=== PATIENT | female | born 2000 | race Caucasian/White ===

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

== ENCOUNTER 2023-05-07 12:57 | Emergency (ER) | payer BC, OTHER, SELFPAY ==
[2023-05-07 13:15] VITALS: BP 110/72; PULSE 74; RESP 16; TEMP 36.4; O2SAT 100
--- NOTE | 2023-05-07 13:55 | ED.SKABFB ---
HPI - Skin/Abscess/Foreign Bdy General Chief complaint: Skin/Abscess/Foreign Body Stated complaint: Rash on Feet Time Seen by Provider: 05/07/23 13:55 Source: patient, RN notes reviewed and old records reviewed Mode of arrival: ambulatory Limitations: no limitations History of Present Illness HPI narrative: 22-year-old female presents to the [facility] with complaints of a rash to the bottom of bilateral feet for the last 2 weeks. Has been using a day jock itch cream patient states that she started using this jock itch cream in the blisters that were all over her feet have disappeared. Mild erythema without increased warmth, peeling of the skin noted to the plantar aspect of bilateral feet. History of hydradenitis Related Data Allergies Allergy/AdvReac Type Severity Reaction Status Date / Time No Known Allergies Allergy Unknown Unverified 05/07/23 13:18 Review of Systems Review of Systems: All systems reviewed & are unremarkable except as noted in HPI and below Constitutional: Constitutional: Reports no additional constitutional complaints Eyes: Eyes: Reports no additional eye complaints ENT: Reports system reviewed and no additional complaints, except as documented Cardiovascular: Cardiovascular: Reports no additional cardiovascular complaints, Denies chest pain and Denies dyspnea Respiratory: Respiratory: Reports no additional respiratory complaints, Denies chest congestion, Denies cough and Denies dyspnea Gastrointestinal: Gastrointestinal: Reports no additional gastrointestinal complaints, Denies abdominal pain, Denies nausea and Denies vomiting Musculoskeletal: Musculoskeletal: Reports no additional musculoskeletal complaints Integumentary/Breasts: Skin/Breast: Reports as per HPI Neurologic: Reports system reviewed and no additional complaints, except as documented Psychiatric: Psychiatric: Reports no additional psychiatric complaints Allergic/Immunologic: Allergic/Immunologic: Reports no additional allergic/immunologic complaints [facility] Past Medical History Medical History Cholecystectomy planned Family History Family History Mother Diabetes mellitus Hypertension Heart problem Sibling Depression Social History Social History Smoking status: Current every day smoker Lack of Transportation: No Lack of Food: Never True Current Housing: I Have Housing Concerned About Future Housing: No Difficulty Paying Gas/Electric Bills: No Difficulty Paying for Meds: No Currently Unemployed: No Education: High School Diploma/GED Comments At the time of my signature, I reviewed and agree with the nursing past medical, surgical, social, and family history. There is no relevant family history pertinent to the patient complaint. Exam Const: General: cooperative, healthy appearing, comfortable, no acute distress, well developed, alert and well nourished Nutritional Appearance: well nourished Orientation/consciousness: patient oriented x3 Limitations: no limitations HENMT: Head: normal to inspection Ears: hearing grossly normal bilaterally and external ears normal Face/Nose/Sinus: Normal external nose present, Normal nares present, Normal nasal mucous membranes and turbinates present, normal facial exam and face symmetric Face and sinus: normal facial exam and face symmetric Eyes: General: appearance normal, both eyes and all related structures Alignment and Position: alignment normal Periorbital: periorbital findings normal Pupils: Equal, round and reactive pupils present EOM: EOMs intact bilaterally Neck: Neck: normal visual inspection, full ROM, no lymphadenopathy and no meningeal signs Chest: Chest palpation & inspection: normal inspection of the chest Resp: Effort & Inspection: normal respiratory effort and able to speak i
== END 2023-05-07 14:09 | disposition home or self-care (01) ==
PROVIDERS: Emergency Provider Nurse Practitioner; PCP Nurse Practitioner
DX: B35.3 Tinea pedis (principal); F17.200 Nicotine dependence, unspecified, uncomplicated
CPT/HCPCS: 99213; G0463

== ENCOUNTER 2023-07-12 21:50 | Emergency (ER) | payer BC, OTHER, SELFPAY ==
--- NOTE | ~2023-07-12 | CT_ITS ---
EXAMINATION: CT abdomen pelvis w con DATE: 07/13/2023 02:27 INDICATION: Right abdominal pain. Right flank pain. TECHNIQUE: Computed tomography (CT) of the abdomen and pelvis was performed with 100 mL Omnipaque 350 intravenous contrast. Automated exposure control and iterative reconstruction technique were employe d. The dose-length product was 684.39 mGy-cm. COMPARISON: None. FINDINGS: The visualized portions of the lung bases demonstrate mild atelectasis. No pleural effusion . The heart size is normal. No pericardial effusion. The liver is normal. The gallbladder is absent. The spleen, pancreas, adrenal glands, and left kidney are normal. There is a 10 mm cyst in right kidn ey. There are no dilated loops of bowel. The appendix is normal. There are no pathologically enlarged lymph nodes. There is no free intraperitoneal fluid. There is mild lumbar spondylosis. IMPRESSION: 1. No etiology for the patient's symptoms. Reviewed, dictated and finalized at location E. ICIAN CODER
[2023-07-12 21:56] VITALS: BP 122/82; PULSE 52; RESP 14; TEMP 36.6; O2SAT 100
[2023-07-13 00:17] LABS: Basophils Percent Auto 0.2 % (0.2-1.2); Eosinophils Absolute Auto 0.1 K/mm3 (0-0.3); Eosinophils Percent Auto 0.7 % (0-4.4); Hematocrit 39.5 % (37.0-47.0); Hemoglobin 12.8 g/dL (12.0-15.0); Immature Granulocyte Absolute 0.02 K/mm3 (0.00-0.031); Immature Granulocyte Percent A 0.2 % (0-0.5); Lymphocytes Absolute Auto 1.93 K/mm3 (0.9-3.2); Lymphocytes Percent Auto 23.3 % (18.3-44.2); Mean Corpuscular HGB Conc 32.4 g/dl (32-36); Mean Corpuscular Hemoglobin 29.2 pg (26-34); Mean Platelet Volume 11.7 fl (7.4-10.4); Monocytes Absolute Auto 0.5 K/mm3 (0.1-0.6); Monocytes Percent Auto 6.4 % (2.6-8.5); Neutrophils Absolute Auto 5.7 K/mm3 (1.3-6.7); Neutrophils Percent Auto 69.2 % (45.5-73.1); Platelet Count Result 171 k/mm3 (150-375); Red Blood Count 4.39 M/mm3 (4.2-5.4); Red Cell Distribution Width 12.9 % (11.5-14.5); White Blood Count 8.3 K/mm3 (4.5-10.0)
[2023-07-13 00:20] LABS: Appearance Urine Cloudy (Clear); Bilirubin Urine Negative (Negative); Blood Urine Negative (Negative); Color Urine Dark Yellow (Yellow); Glucose Urine UA Negative (Negative); Ketones Urine Trace mg/dL (Negative); Leukocyte Esterase Ur Negative LEU/UL (Negative); Nitrate Urine Negative (Negative); Protein Urine Trace mg/dL (Negative); pH Urine 5.5 (5.0-9.0)
[2023-07-13 00:21] LABS: Specific Grav Ur 1.036 (1.001-1.035)
[2023-07-13 00:28] LABS: Add Urine Microscopic? NO
[2023-07-13 00:29] LABS: Alanine Aminotransferase 18 U/L (6-35); Albumin Level 4.4 g/dL (3.5-5.1); Alkaline Phosphatase 55 U/L (38-126); Anion Gap 8 mmol/L (8-16); Aspartate Amino Transferase 23 U/L (14-36); Bilirubin,Total 0.9 mg/dL (0.2-1.3); Blood Urea Nitrogen 11 mg/dL (7-17); Calcium 9.2 mg/dL (8.4-10.2); Carbon Dioxide 22 mmol/L (22-30); Chloride 111 mmol/L (98-107); Estimated CRCL calculation 119 ml/min; Estimated Glomerular Filt Rate > 60; Glucose 96 mg/dL (65-110); Lipase 51 U/L (23-300); Potassium 3.7 mmol/L (3.4-5.0); Sodium 141 mmol/L (137-145)
[2023-07-13 01:07] VITALS: BP 128/82; PULSE 48; RESP 13; O2SAT 100
--- NOTE | 2023-07-13 02:03 | ED.ABDPAIN ---
HPI - Abdominal Pain General Chief Complaint: Abdominal Pain Stated Complaint: Abd pain Time Seen by Provider: 07/13/23 01:33 Source: patient Mode of arrival: ambulatory Limitations: no limitations History of Present Illness HPI narrative: This is a 23 year old female that presents to the ER for abdominal pain ongoing over the last 2 days. Reports pain in the right lower abdomen, radiating to the right flank. Reports nausea. Denies fever, vomiting, dysuria, or hematuria. Related Data Allergies Allergy/AdvReac Type Severity Reaction Status Date / Time No Known Allergies Allergy Unknown Verified 07/13/23 01:09 Review of Systems Review of Systems: CONSTITUTIONAL: Denies fever GASTROINTESTINAL: Reports abdominal pain, nausea. Denies vomiting, or diarrhea. GENITOURINARY: Denies dysuria or hematuria. All systems reviewed & are unremarkable except as noted in HPI and below PMFSH Surgical History Surgical History (Updated 07/13/23 @ 02:09 by Sary Lorenz PA-C) History of cholecystectomy Family History Family History Mother Diabetes mellitus Hypertension Heart problem Sibling Depression Social History Social History Smoking status: Current every day smoker Lack of Transportation: No Lack of Food: Never True Current Housing: I Have Housing Concerned About Future Housing: No Difficulty Paying Gas/Electric Bills: No Difficulty Paying for Meds: No Currently Unemployed: No Education: High School Diploma/GED Exam Narrative: GENERAL: Well-appearing, well-nourished, and in no acute distress. HEAD: Normocephalic, atraumatic. EYES: EOMI. CHEST: Clear to auscultation. No respiratory distress. No wheezes rales or rhonchi HEART: Regular rate and rhythm. No murmur heard. Normal peripheral pulses. ABDOMEN: Soft, nondistended, normal active bowel sounds. Tender to palpation in the right lower quadrant, without guarding. No CVA tenderness EXTREMITIES: Normal range of motion. No edema. SKIN: Warm, dry, no rash. NEURO: No focal deficits. Alert and oriented x3. PSYCH: Normal mood and affect Course Course Emergency Course: Patient updated on her workup and agrees with plan of care Vital Signs Vital signs: Vital Signs Temperature 97.9 F 07/12/23 21:56 Pulse Rate 52 L 07/12/23 21:56 Respiratory Rate 14 07/12/23 21:56 Blood Pressure 122/82 07/12/23 21:56 Pulse Oximetry 100 07/12/23 21:56 Oxygen Delivery Room Air 07/12/23 21:56 Temperature 97.9 F 07/12/23 21:56 Pulse Rate 48 L 07/13/23 01:07 Respiratory Rate 13 07/13/23 01:07 Blood Pressure 128/82 07/13/23 01:07 Pulse Oximetry 100 07/13/23 01:07 Oxygen Delivery Room Air 07/12/23 21:56 MDM - Abdominal Pain MDM Narrative Medical decision making narrative: Patient presents to the emergency department for right-sided abdominal pain. Ongoing over the last couple of days. She is afebrile and nontoxic appearing. Her vitals are stable. CBC without leukocytosis. Metabolic panel and lipase without acute findings. Urine with some evidence of dehydration. Patient hydrated with a L of IV fluids. CT abdomen and pelvis is without acute findings. Patient was updated on her workup. Instructed to have further follow-up with primary provider. She was given warnings to return to the ER Differential Diagnosis Differential diagnosis: Likely abdominal pain, acute appendicitis and calculus of kidney Lab Data Attestation: I reviewed the patient's lab results. 07/12/23 23:52 07/12/23 23:52 Labs: Lab Results 07/12/23 Range/Units 23:52 WBC 8.3 (4.5-10.0) K/mm3 RBC 4.39 (4.2-5.4) M/mm3 Hgb 12.8 (12.0-15.0) g/dL Hct 39.5 (37.0-47.0) % MCV 90.0 (80-100) fl MCH 29.2 (26-34) pg MCHC 32.4 (32-36) g/dl RDW 12.9 (11.5-14.5) % Plt Count 171 (150-37
[2023-07-13] MEDS: MORPHINE SULFATE (*CRX) 4 MG/ML INJ IV PUSH (02:04)
[2023-07-13] MEDS: ONDANSETRON INJ 4 MG/2 ML VIAL IV PUSH (02:05)
[2023-07-13] MEDS: SODIUM CHLORIDE 0.9% IV 1,000 ML 999 ML IV CONT (02:05)
[2023-07-13 04:04] VITALS: BP 124/80; PULSE 54; RESP 14; O2SAT 100
== END 2023-07-13 04:05 | disposition home or self-care (01) ==
PROVIDERS: Emergency Medicine; Emergency Provider Physician Assistant; PCP Nurse Practitioner
DX: R10.31 Right lower quadrant pain (principal); E86.0 Dehydration; Z90.49 Acquired absence of other specified parts of digestive tract; F17.210 Nicotine dependence, cigarettes, uncomplicated
CPT/HCPCS: 36415; 74177; 80053; 81003; 81025; 83690; 85025; 96361; 96374; 96375; 99284; J2270; J2405; J7030; Q9967

== ENCOUNTER 2023-10-19 15:31 | Outpatient (CLI) | payer BC, OTHER, SELFPAY ==
[2023-10-19 17:09] LABS: Beta HCG Quantitative < 2.39 mIU/ML
== END 2023-10-19 15:32 | disposition home or self-care (01) ==
LOC: ANHLAB 15:33
PROVIDERS: PCP Nurse Practitioner; Visit Provider Student in an Organized Health Care Education/Training Program
DX: Z30.9 Encounter for contraceptive management, unspecified (principal)
CPT/HCPCS: 36415; 84702

== ENCOUNTER 2023-11-16 20:21 | Emergency (ER) | payer BC, OTHER, SELFPAY ==
--- NOTE | ~2023-11-16 | XR_ITS ---
EXAMINATION: XR lumbar spine 2-3V DATE: 11/16/2023 21:13 INDICATION: Low back pain. TECHNIQUE: 3 views of lumbar spine were obtained. COMPARISON: CT abdomen and pelvis 07/13/2023 FINDINGS: Bone alignment is normal. Vertebral body heights and intervertebral disc heights are normal . The facet joints are unremarkable. IMPRESSION: 1. Normal lumbar spine. Reviewed, dictated and finalized at location E. IMPRESSION: 1. Normal lumbar spine.
[2023-11-16 20:21] VITALS: BP 124/66; PULSE 93; RESP 18; TEMP 36.8; O2SAT 98
--- NOTE | 2023-11-16 20:39 | ED.BACK ---
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 She reports she has been trying to get in to see her primary care physician but has been unable to get an appointment to to them being Very busy. She denies dysuria, urgency, frequency, denies radicular pain, denies paresthesias. She does not recall a specific injury that triggered it, does not recall any previous significant back injuries. Related Data Home Medications Medication Instructions Recorded Confirmed etonogestrel 68 mg subdermal 1 implant subdermal ONCE 10/20/23 11/16/23 implant (Nexplanon) Allergies Allergy/AdvReac Type Severity Reaction Status Date / Time No Known Allergies Allergy Unknown Verified 10/20/23 14:54 Review of Systems Review of Systems: All systems reviewed & are unremarkable except as noted in HPI and below PMFSH Past Medical History Medical History Encounter for surveillance of other contraceptives Surgical History Surgical History History of ankle surgery History of cholecystectomy Family History Family History Mother Diabetes mellitus Hypertension Heart problem Sibling Depression Social History Social History Smoking status: Current every day smoker Tobacco type: e-cigarettes/vaping Alcohol intake: never Substance use: current Substance use type: marijuana Do You Feel Safe in your Home?: Yes Lack of Transportation: No Lack of Food: Never True Current Housing: I Have Housing Concerned About Future Housing: No Difficulty Paying Gas/Electric Bills: No Difficulty Paying for Meds: No Currently Unemployed: No Education: High School Diploma/GED Living arrangements: with roommate(s) Occupation/Education: occupation Gender identity (if verbalized by the patient): Female Sexual Orientation (if Verbalized by the Patient): Straight or Heterosexual Exam Const: General: healthy appearing, no acute distress and alert Nutritional Appearance: well nourished Orientation/consciousness: patient oriented x3 HENMT: Head: normal to inspection Face and sinus: normal facial exam Eyes: Pupils: Equal, round and reactive pupils present EOM: EOMs intact bilaterally Resp: Effort & Inspection: normal respiratory effort Cardio: Rate: regular rate Rhythm: regular rhythm Back/Spine/Pelvis: Back: no CVA tenderness Other: Patient has diffuse tenderness on palpation of the lumbar area including the paravertebral musculature without specific point tenderness of any specific spinous process. There is no deformity, step-off, or crepitance. Range of motion is preserved. No radicular pain, negative straight leg raising, distal neurovascular intact Skin: General skin exam: normal color Neuro: General: moves all extremities, no focal motor deficits and CN's II-XI intact bilaterally Extrem: General: normal to inspection Psych: Mental Status: mental status grossly normal Affect: normal affect Attitude: cooperative Course Course Emergency Course: differential diagnosis includes but is not limited to musculoskeletal low back pain, muscle spasm, overuse syndrome, scoliosis, UTI, , will get UA, urine test, and if negative will get LS-spine x-rays UA is unremarkable, urine test is negative x-rays are unremarkable, no scoliosis,
--- NOTE | 2023-11-16 20:57 | PC.NURSE ---
PT TO BR INDEPENDENTLY, URINE TO LAB.
[2023-11-16 21:02] LABS: Appearance Urine Clear (Clear); Bilirubin Urine Negative (Negative); Blood Urine Negative (Negative); Color Urine Yellow (Yellow); Glucose Urine UA Negative (Negative); Ketones Urine Negative (Negative); Leukocyte Esterase Ur Negative LEU/UL (Negative); Nitrate Urine Negative (Negative); Protein Urine Negative (Negative); Specific Grav Ur >= 1.030 (1.010-1.020); Urobilinogen Urine 0.2 mg/dL (0.2-1.0)
[2023-11-16 21:05] LABS: Add Urine Microscopic? NO; Urine Pregnancy Test Negative
[2023-11-16 21:06] LABS: Pregnancy On Board Control Positive
[2023-11-16 22:05] VITALS: BP 107/57; PULSE 60; RESP 16; TEMP 37.1; O2SAT 97
== END 2023-11-16 22:11 | disposition home or self-care (01) ==
PROVIDERS: Emergency Provider Emergency Medicine; PCP Nurse Practitioner
DX: S39.012A Strain of muscle, fascia and tendon of lower back, initial encounter (principal); F17.290 Nicotine dependence, other tobacco product, uncomplicated; X50.9XXA Other and unspecified overexertion or strenuous movements or postures, initial encounter; Y99.0 Civilian activity done for income or pay
CPT/HCPCS: 72100; 81003; 81025; 99283

== ENCOUNTER 2023-11-25 20:38 | Emergency (ER) | payer BC, OTHER, SELFPAY ==
[2023-11-25 20:42] VITALS: BP 118/96; PULSE 96; RESP 18; TEMP 36.4; O2SAT 98
--- NOTE | 2023-11-25 21:58 | ED.BACK ---
HPI - Back Pain/Injury General Chief Complaint: Back Pain/Injury Stated Complaint: back pain Time Seen by Provider: 11/25/23 21:39 Source: patient Mode of arrival: ambulatory Limitations: no limitations History of Present Illness HPI Narrative: 23 YEARS OLD WHITE FEMALE DROVE HERSELF TO THE EMERGENCY ROOM COMPLAINING OF PAIN ALL OVER HER BACK OVER 2 MONTHS AGO. 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 AND PAIN BEEN GOING FOR ALMOST 2 MONTHS, WAS SEEN BY HER FAMILY PHYSICIAN YESTERDAY SCHEDULED FOR PHYSICAL THERAPY December. PATIENT WORKING 12 HOUR SHIFT TONIGHT, 2 HOURS LATER COULD NOT CONTINUE TO WORK BECAUSE THE PAIN IS GETTING WORSE. PATIENT WOULD LIKE TO HAVE A NOTE TO BE OF WORK TODAY SHE DENIED ANY FOCAL NEURO DEFICIT. PAIN WORSE WITH MOVEMENT, BETTER AT REST. PATIENT BEEN ON FLEXERIL AND NAPROXEN IN THE PAST Related Data Home Medications Medication Instructions Recorded Confirmed etonogestrel 68 mg subdermal 1 implant subdermal ONCE 10/20/23 11/24/23 implant (Nexplanon) Allergies Allergy/AdvReac Type Severity Reaction Status Date / Time No Known Allergies Allergy Unknown Verified 11/24/23 10:02 Review of Systems Review of Systems: All systems reviewed & are unremarkable except as noted in HPI and below PMFSH Past Medical History Medical History Encounter for surveillance of other contraceptives Surgical History Surgical History History of ankle surgery History of cholecystectomy Family History Family History Mother Diabetes mellitus Hypertension Heart problem Sibling Depression Social History Social History Smoking status: Current every day smoker Tobacco type: e-cigarettes/vaping Alcohol intake: never Substance use: current Substance use type: marijuana Do You Feel Safe in your Home?: Yes Lack of Transportation: No Lack of Food: Never True Current Housing: I Have Housing Concerned About Future Housing: No Difficulty Paying Gas/Electric Bills: No Difficulty Paying for Meds: No Currently Unemployed: No Education: High School Diploma/GED Living arrangements: with roommate(s) Occupation/Education: occupation Gender identity (if verbalized by the patient): Female Sexual Orientation (if Verbalized by the Patient): Straight or Heterosexual Exam Narrative: GENERAL APPEARANCE: WELL-DEVELOPED, WELL-NOURISHED SKIN: NORMAL COLOR HEAD: NORMOCEPHALIC, NONTRAUMATIC EYES: CLEAR CONJUNCTIVA ENT: OROPHARYNX NORMAL, EARS NORMAL, NOSE NORMAL NECK: SUPPLE, NONTENDER CHEST AND RESPIRATORY: AIRWAY PATENT, NO RESPIRATORY DISTRESS, NO ACCESSORY MUSCLE USE HEART: REGULAR RATE/RHYTHM ABDOMEN: SOFT, NONTENDER, NO ORGANOMEGALY, QUIET BOWEL SOUNDS VASCULAR: NORMAL PERIPHERAL PULSES, NORMAL CAPILLARY REFILL. 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
[2023-11-25 22:21] VITALS: BP 103/62; PULSE 90; RESP 18; O2SAT 99
== END 2023-11-25 22:22 | disposition home or self-care (01) ==
LOC: ANHED 22:16
PROVIDERS: Emergency Provider Emergency Medicine; PCP Nurse Practitioner
DX: M54.9 Dorsalgia, unspecified (principal); F17.290 Nicotine dependence, other tobacco product, uncomplicated; Z90.49 Acquired absence of other specified parts of digestive tract
CPT/HCPCS: 99283

== ENCOUNTER 2024-01-03 15:04 | Outpatient (CLI) | payer OTHER, SELFPAY ==
[2024-01-03 18:56] LABS: Basophils Percent Auto 0.5 % (0.2-1.2); Eosinophils Absolute Auto 0.2 K/mm3 (0-0.3); Eosinophils Percent Auto 2.4 % (0-4.4); Hematocrit 40.5 % (37.0-47.0); Hemoglobin 13.7 g/dL (12.0-15.0); Immature Granulocyte Absolute 0.01 K/mm3 (0.00-0.031); Immature Granulocyte Percent A 0.1 % (0-0.5); Lymphocytes Absolute Auto 2.54 K/mm3 (0.9-3.2); Lymphocytes Percent Auto 30.7 % (18.3-44.2); Mean Corpuscular HGB Conc 33.8 g/dl (32-36); Mean Corpuscular Volume 88.6 fl (80-100); Mean Platelet Volume 11.5 fl (7.4-10.4); Monocytes Absolute Auto 0.5 K/mm3 (0.1-0.6); Monocytes Percent Auto 6.2 % (2.6-8.5); Neutrophils Percent Auto 60.1 % (45.5-73.1); Platelet Count Result 219 k/mm3 (150-375); Red Blood Count 4.57 M/mm3 (4.2-5.4); White Blood Count 8.3 K/mm3 (4.5-10.0)
[2024-01-03 19:29] LABS: Alanine Aminotransferase 20 U/L (6-35); Albumin Level 4.7 g/dL (3.5-5.1); Alkaline Phosphatase 49 U/L (38-126); Anion Gap 9 mmol/L (4-12); Aspartate Amino Transferase 28 U/L (14-36); Bilirubin,Total 1.1 mg/dL (0.2-1.3); Blood Urea Nitrogen 14 mg/dL (7-17); Calcium 9.4 mg/dL (8.4-10.2); Carbon Dioxide 26 mmol/L (22-30); Chloride 105 mmol/L (98-107); Estimated Glomerular Filt Rate > 60; Glucose 89 mg/dL (65-110); Potassium 4.1 mmol/L (3.4-5.0); Sodium 140 mmol/L (137-145)
== END 2024-01-03 15:05 | disposition home or self-care (01) ==
LOC: ANHGOSHLAB 15:06
PROVIDERS: PCP Nurse Practitioner; Visit Provider Clinical Nurse Specialist
DX: R42 Dizziness and giddiness (principal)
CPT/HCPCS: 36415; 80053; 82728; 84443; 85025

== ENCOUNTER 2024-01-09 14:03 | Emergency (ER) | payer OTHER, SELFPAY ==
[2024-01-09 14:04] VITALS: BP 113/58; PULSE 62; RESP 16; TEMP 36.6; O2SAT 100
[2024-01-09 16:52] LABS: Influenza A QL RT-PCR Negative (Negative); Influenza B QL RT-PCR Negative (Negative); SARS-CoV-2 RNA PCR Negative (Negative)
== END 2024-01-09 14:10 | disposition left against medical advice (07) ==
LOC: ANHED 01-10 03:16
PROVIDERS: Emergency Provider Emergency Medicine; PCP Nurse Practitioner
DX: R11.0 Nausea (principal); R19.7 Diarrhea, unspecified; Z20.822 Contact with and (suspected) exposure to COVID-19
CPT/HCPCS: 87636; 99199

== ENCOUNTER 2024-01-24 09:37 | Emergency (ER) | payer OTHER, SELFPAY ==
[2024-01-24 10:00] VITALS: BP 119/65; PULSE 51; RESP 14; TEMP 36.9; O2SAT 100
--- NOTE | 2024-01-24 11:44 | ED.GENADULT ---
HPI - General Adult General Chief complaint: Headache Stated complaint: N/V, HEADACHE Time Seen by Provider: 01/24/24 11:14 History of Present Illness HPI narrative: 23-year-old female presents emergency department for evaluation for recurrent headache. Patient states that she does have seasonal headaches and does have infrequent migraine headaches. Patient states this headache started as a typical headache but has just persisted longer than usual. Patient denies any recent fevers falls or injuries. Related Data Home Medications Medication Instructions Recorded Confirmed etonogestrel 68 mg subdermal 1 implant subdermal ONCE 10/20/23 01/03/24 implant (Nexplanon) Allergies Allergy/AdvReac Type Severity Reaction Status Date / Time No Known Allergies Allergy Unknown Verified 01/09/24 14:08 Review of Systems Review of Systems: All systems reviewed & are unremarkable except as noted in HPI and below PMFSH Past Medical History Medical History Encounter for surveillance of other contraceptives Surgical History Surgical History History of ankle surgery History of cholecystectomy Family History Family History Mother Diabetes mellitus Hypertension Heart problem Sibling Depression Social History Social History Smoking status: Current every day smoker Tobacco type: e-cigarettes/vaping Alcohol intake: never Substance use: current Substance use type: marijuana Do You Feel Safe in your Home?: Yes Lack of Transportation: No Lack of Food: Never True Current Housing: I Have Housing Concerned About Future Housing: No Difficulty Paying Gas/Electric Bills: No Difficulty Paying for Meds: No Currently Unemployed: No Education: High School Diploma/GED Living arrangements: with roommate(s) Occupation/Education: occupation Gender identity (if verbalized by the patient): Female Sexual Orientation (if Verbalized by the Patient): Straight or Heterosexual Exam Narrative: APPEARANCE: Well appearing, no pain, no distress, well-nourished. HEAD: normocephalic, atraumatic. EYES: PERRLA/EOMI, conjunctivae clear. NOSE: Normal no drainage EARS:TMS clear with good light reflex. THROAT: Pharynx clear, no exudate. NECK: Supple. No adenopathy, no masses. RESPIRATORY: Airway patent, respirations nonlabored. Clear to auscultation bilaterally, no rales, rhonchi, wheezing. CARDIOVASCULAR: Regular rate and rhythm without murmurs rubs or gallops. ABDOMINAL: Soft, nontender, nondistended, normal bowel sounds MUSCULOSKELETAL: Moves all extremities. Strength/ROM intact, No edema, No calf tenderness. NEURO: Alert. Cranial nerves II through XII intact. Good gait. Good coordination SKIN: Warm, dry. Normal Color Course Course Emergency Course: Patient felt improved with treatment and was requesting discharge to home. Vital Signs Vital signs: Vital Signs Temperature 98.5 F 01/24/24 10:00 Pulse Rate 51 L 01/24/24 10:00 Respiratory Rate 14 01/24/24 10:00 Blood Pressure 119/65 01/24/24 10:00 Pulse Oximetry 100 01/24/24 10:00 Oxygen Delivery Room Air 01/24/24 10:00 Temperature 98.5 F 01/24/24 10:00 Pulse Rate 67 01/24/24 13:54 Respiratory Rate 18 01/24/24 13:54 Blood Pressure 102/69 01/24/24 13:54 Pulse Oximetry 100 01/24/24 13:54 Oxygen Delivery Room Air 01/24/24 10:00 Medical Decision Making MDM Narrative Medical decision making narrative: 23-year-old female presented emergency department for evaluation for headache. Patient's headache was resolved with migraine cocktail. Patient was start oriented and was requesting discharge to home. All questions and concerns were addressed. Differential Diagnosis Differential
[2024-01-24] MEDS: SODIUM CHLORIDE 0.9% IV 1,000 ML 999 ML IV CONT (12:03)
[2024-01-24] MEDS: diphenhydrAMINE HCl INJ 50 MG/ML VIAL 25 MG IV PUSH (12:04)
[2024-01-24] MEDS: KETOROLAC 15 MG/ML VIAL (*BKC) IV PUSH (12:04)
[2024-01-24] MEDS: PROCHLORPERAZINE EDISYLATE 10 MG/2 ML VIAL IV PUSH (12:05)
[2024-01-24 13:54] VITALS: BP 102/69; PULSE 67; RESP 18; O2SAT 100
== END 2024-01-24 13:56 | disposition home or self-care (01) ==
PROVIDERS: Emergency Provider Emergency Medicine; PCP Nurse Practitioner
DX: R51.9 Headache, unspecified (principal); F17.290 Nicotine dependence, other tobacco product, uncomplicated; Z90.49 Acquired absence of other specified parts of digestive tract; Z79.3 Long term (current) use of hormonal contraceptives
CPT/HCPCS: 96361; 96374; 96375; 99284; J0780; J1200; J1885; J7030

== ENCOUNTER 2024-02-08 09:31 | Emergency (ER) | payer OTHER, SELFPAY ==
[2024-02-08 09:47] VITALS: BP 100/83; PULSE 78; RESP 17; TEMP 36.1; O2SAT 98
--- NOTE | 2024-02-08 10:10 | ED.SKABFB ---
HPI - Skin/Abscess/Foreign Bdy General Chief complaint: Skin/Abscess/Foreign Body Stated complaint: big toe left foot issue Time Seen by Provider: 02/08/24 10:10 Source: patient, RN notes reviewed and old records reviewed Mode of arrival: ambulatory Limitations: no limitations History of Present Illness HPI narrative: Patient presents with complaints of left great toe pain. Patient reportedly traumatically loss the toenail 3 nights ago. Was playing Frisbee, kicked an object on the ground and felt the nail avulsed. Pulled it off the rest of the way. There is now yellow drainage from the nail bed. Denies other injury and trauma. Denies any fever, chills, sweats. Voices no other concerns or complaints today Related Data Home Medications Medication Instructions Recorded Confirmed etonogestrel 68 mg subdermal 1 implant subdermal ONCE 10/20/23 02/08/24 implant (Nexplanon) Allergies Allergy/AdvReac Type Severity Reaction Status Date / Time No Known Allergies Allergy Unknown Verified 02/08/24 09:57 Review of Systems Review of Systems: All systems reviewed & are unremarkable except as noted in HPI and below Constitutional: Constitutional: Reports no additional constitutional complaints ENT: Reports system reviewed and no additional complaints, except as documented Cardiovascular: Cardiovascular: Reports no additional cardiovascular complaints Respiratory: Respiratory: Reports no additional respiratory complaints Gastrointestinal: Gastrointestinal: Reports no additional gastrointestinal complaints Integumentary/Breasts: Skin/Breast: Reports as per HPI and Reports wounds PMFSH Past Medical History Medical History Encounter for surveillance of other contraceptives Surgical History Surgical History History of ankle surgery History of cholecystectomy Family History Family History Mother Diabetes mellitus Hypertension Heart problem Sibling Depression Social History Social History Smoking status: Current every day smoker Tobacco type: e-cigarettes/vaping Alcohol intake: never Substance use: current Substance use type: marijuana Do You Feel Safe in your Home?: Yes Lack of Transportation: No Lack of Food: Never True Current Housing: I Have Housing Concerned About Future Housing: No Difficulty Paying Gas/Electric Bills: No Difficulty Paying for Meds: No Currently Unemployed: No Education: High School Diploma/GED Living arrangements: with roommate(s) Occupation/Education: occupation Gender identity (if verbalized by the patient): Female Sexual Orientation (if Verbalized by the Patient): Straight or Heterosexual Comments At the time of my signature, I reviewed and agree with the nursing past medical, surgical, social, and family history. There is no relevant family history pertinent to the patient complaint. Exam Const: General: cooperative, no acute distress, alert and awake Orientation/consciousness: oriented to person, oriented to place and oriented to time HENMT: Head: normal to inspection Resp: Effort & Inspection: normal respiratory effort and able to speak in complete sentences Auscultation: clear to auscultation bilaterally, no crackles, no rales, no rhonchi and no wheezes Cardio: Palpation: normal PMI Rate: regular rate Rhythm: regular rhythm Heart sounds: S1 normal heart sound present and S2 normal heart sound present Skin: Nails: other (Left great toenail avulsion, purulent drainage noted at the nail bed) Neuro: General: oriented to person, oriented to place and oriented to time Cranial nerves: Yes CN's II-XII intact bilaterally Psych: Appearance: grossly normal Thought process: Normal thought process present Insight: Good insig
== END 2024-02-08 10:25 | disposition home or self-care (01) ==
PROVIDERS: Emergency Provider Nurse Practitioner Family; PCP Nurse Practitioner
DX: S91.202A Unspecified open wound of left great toe with damage to nail, initial encounter (principal); L08.9 Local infection of the skin and subcutaneous tissue, unspecified; W22.8XXA Striking against or struck by other objects, initial encounter; Y93.74 Activity, frisbee; F17.290 Nicotine dependence, other tobacco product, uncomplicated; F12.90 Cannabis use, unspecified, uncomplicated
CPT/HCPCS: 99213; G0463

== ENCOUNTER 2024-04-29 10:06 | Emergency (ER) | payer OTHER, SELFPAY ==
--- NOTE | ~2024-04-29 | XR_ITS ---
EXAMINATION: XR chest 2V DATE: 04/29/2024 10:41 INDICATION: Chest pain. TECHNIQUE: Frontal and lateral views of the chest were obtained. COMPARISON: CT abdomen pelvis 07/13/2023 FINDINGS: There is no pneumonia, pleural effusion, or pneumothorax. The heart size is normal. IMPRESSION: 1. No acute cardiopulmonary disease. Reviewed, dictated and finalized at location A. LA TENDER
--- NOTE | 2024-04-29 10:07 | ECG_ITS ---
Test Date: 2024-04-29 10:11:56 Measurements Intervals [place] Rate: 71 P: 71 MS: 181 QRS: 2 QRSD: 106 T: 32 QT: 414 QTc: 451 Interpretive Statements SINUS RHYTHM WITH MARKED SINUS ARRHYTHMIA INCOMPLETE RIGHT BUNDLE BRANCH BLOCK [90+ ms QRS DURATION, TERMINAL R IN V1/V2, 40+ ms S IN I/aVL/V4/V5/V6] No previous ECG available for comparison Electronically Signed On 04-29-2024 10:25:37 E [employer] by Sharlene Celis M.D.
[2024-04-29 10:17] VITALS: BP 118/67; PULSE 65; RESP 18; TEMP 36.3; O2SAT 97
--- NOTE | 2024-04-29 10:20 | ED.CHESTPAIN ---
HPI - Chest Pain General Chief Complaint: Chest Pain Stated Complaint: medial and left sided cp Time Seen by Provider: 04/29/24 10:08 History of Present Illness HPI narrative: This is a 23-year-old female with past medical history including anxiety depression, daily smoking. She presents to the emergency room with chief complaint of chest pain, left-sided chest discomfort, pleuritic chest pain and some lightheadedness. She was at work where she works as [employer] bri at 2 in the morning. She states she suddenly had a sensation of a chest heaviness in the left side of her chest and chest pressure in the center of her chest. She has had some tingling in her left arm and her symptoms got worse with movement and leaning forward. Denies any cough, sneezing runny nose but states she has been congested this past week. No sick contacts. No shortness of breath, headache, vision changes, nausea, vomiting, back pain, abdominal pain. No history of blood clots but she is on in implanted Nexplanon for control. Family is present at bedside states there is a strong family history of cardiac disease. Related Data Home Medications ?Medication ?Instructions ?Recorded ?Confirmed ?Last Taken ?Type etonogestrel 68 mg subdermal 1 implant subdermal ONCE 10/20/23 04/29/24 04/29/24 History implant (Nexplanon) Allergies Allergy/AdvReac Type Severity Reaction Status Date / Time No Known Allergies Allergy Unknown Verified 04/29/24 10:22 Review of Systems Review of Systems: As reviewed [facility] Past Medical History Medical History Encounter for surveillance of other contraceptives Surgical History Surgical History History of ankle surgery History of cholecystectomy Family History Family History Mother Diabetes mellitus Hypertension Heart problem Sibling Depression Social History Social History Smoking status: Current every day smoker Tobacco type: e-cigarettes/vaping Alcohol intake: never Substance use: current Substance use type: marijuana Do You Feel Safe in your Home?: Yes Lack of Transportation: No Lack of Food: Never True Current Housing: I Have Housing Concerned About Future Housing: No Difficulty Paying Gas/Electric Bills: No Difficulty Paying for Meds: No Currently Unemployed: No Education: High School Diploma/GED Living arrangements: with roommate(s) Occupation/Education: occupation Gender identity (if verbalized by the patient): Transgender Male Sexual Orientation (if Verbalized by the Patient): Straight or Heterosexual Exam Narrative: GENERAL: [Well-appearing, well-nourished, and in no acute distress.] HEAD: [Normocephalic, atraumatic.] EYES: [PERRLA and EOMI.] ENT: Nares clear, no rhinorrhea or epistaxis. Mucous membranes moist. NECK: Supple. CHEST: [Clear to auscultation. No respiratory distress.] Pleuritic chest pain worsening with leaning forward and movement HEART: [Regular rate and rhythm]. No murmur heard. [Normal peripheral pulses.] ABDOMEN: [Soft, nondistended], [nontender], [No rigidity or guarding] EXTREMITIES: Normal range of motion. [No edema.] SKIN: Warm, dry, no rash. NEURO: [No focal deficits]. Alert and oriented [x3.] PSYCH: [Normal mood and affect.] Course Vital Signs Vital signs: Vital Signs Temperature 36.3 C L 04/29/24 10:17 Pulse Rate 65 04/29/24 10:17 Respiratory Rate 18 04/29/24 10:17 Blood Pressure 118/67 04/29/24 10:17 Pulse Oximetry 97 04/29/24 10:17 Oxygen Delivery Room Air 04/29/24 10:17 Temperature 36.3 C L 04/29/24 10:17 Pulse Rate 65 04/29/24 10:17 Respiratory Rate 18 04/29/24 10:17 Blood Pressure 118/67 04/29/24 10:17 Pulse Oximetry 97 04/29/24 10:37 Oxygen Delivery Room Air 04/29/24 10:37 MDM - Chest Pain MDM Narrative Medical decision making narrative: 23-year-old otherwise healthy female with history of anxiety, depression and smoking presenting to the emergency room with chief complaint of pleuritic chest pain, chest pain worse with movement and leaning forward as well as some chest heaviness sensation of sudden onset to in the morning. 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 She has some reproducible tenderness with palpation of her chest wall as well as with leaning forward. She has clear breath sounds throughout, does sound like some slight congestion in her sinuses. She is otherwise well-appearing but does have some risk factors including a strong family history of cardiac disease and her being on control. Cardiac workup was ordered including troponin, D-dimer, chest x-ray, EKG, electrolyte panel. Vital signs reassuring without any tachycardia, fever, hypoxia. She was given Toradol for analgesia. Cardiac workup was reassuring, negative troponin, negative D-dimer, chest x-rays independent reviewed I do not appreciate any consolidations, pneumothorax, masses, mediastinal widening. EKG shows a incomplete right bundle-branch block but no ST segment elevations, depressions or inversions. I did discuss this with the patient and the family to be aware of however patient did have significant improvement with Toradol after reassessment and likely has costochondritis versus musculoskeletal chest wall pain. Encouraged him to follow-up with her primary care provider intake NSAID therapies at home. Patient stable for discharge home at this time. Differential Diagnosis Differential diagnosis: Likely fracture of rib, pneumothorax, stable angina, atypical chest pain, costochondritis, chest pain and other Medical Records Data Attestation: I reviewed the patient's medical records. Lab Data Attestation: I reviewed the patient's lab results. 04/29/24 10:17 04/29/24 10:17 Labs: Lab Results 04/29/24 04/29/24 04/29/24 Range/Units 10:17 10:17 10:23 WBC 7.6 (4.5-10.0) K/mm3 RBC 4.44 (4.2-5.4) M/mm3 Hgb 13.3 (12.0-15.0) g/dL Hct 38.9 (37.0-47.0) % MCV 87.6 (80-100) fl MCH 30.0 (26-34) pg MCHC 34.2 (32-36) g/dl RDW 13.1 (11.5-14.5) % Plt Count 200 (150-375) k/mm3 MPV 10.8 H (7.4-10.4) fl Immature Gran % (Auto) 0.1 (0-0.5) % Neut % (Auto) 61.7 (45.5-73.1) % Lymph % (Auto) 29.6 (18.3-44.2) % Mohave % (Auto) 6.9 (2.6-8.5) % Eos % (Auto) 1.2 (0-4.4) % Baso % (Auto) 0.5 (0.2-1.2) % Lymph # (Auto) 2.26 (0.9-3.2) K/mm3 Mohave # (Auto) 0.5 (0.1-0.6) K/mm3 Eos # (Auto) 0.1 (0-0.3) K/mm3 Baso # (Auto) 0.0 (0.0-0.1) K/mm3 Abs Immat Gran (auto) 0.01 (0.00-0.031) K/mm3 Absolute Neuts (auto) 4.7 (1.3-6.7) K/mm3 Absolute Nucleated RBC 0.000 (0.0-0.012) K/mm3 Nucleated RBC % 0.0 (0.0-0.2) % PT 13.7 (11.1-14.7) Seconds INR 1.0 APTT 28.9 (22.3-36.8) Seconds D-Dimer < 0.27 Cancelled (<0.48) ug/mL Sodium 138 (137-145) mmol/L Potassium 3.7 (3.4-5.0) mmol/L Chloride 107 (98-107) mmol/L Carbon Dioxide 24 (22-30) mmol/L Anion Gap 7 (4-12) mmol/L BUN 9 D (7-17) mg/dL Creatinine 0.80 (0.7-1.0) mg/dL Estim Creat Clear Calc 103 ml/min Estimated GFR > 60 (59 - ) Glucose 85 (65-110) mg/dL Calcium 9.6 (8.4-10.2) mg/dL Total Bilirubin 0.7 (0.2-1.3) mg/dL AST 25 (14-36) U/L ALT 16 (6-35) U/L Alkaline Phosphatase 52 (38-126) U/L Troponin I < 0.012 (0.000-0.034) ng/mL Total Protein 7.0 (6.3-8.2) g/dL Albumin 4.5 (3.5-5.1) g/dL Lipase 55 (23-300) U/L POC Urine HCG, Qual (Negative) Influenza A (RT-PCR) Negative (Negative) Influenza B (RT-PCR) Negative (Negative) SARS-CoV-2 RNA (RT-PCR) Negative (Negative) 04/29/24 Range/Units 10:52 WBC (4.5-10.0) K/mm3 RBC (4.2-5.4) M/mm3 Hgb (12.0-15.0) g/dL Hct (37.0-47.0) % MCV (80-100) fl MCH (26-34) pg MCHC (32-36) g/dl RDW (11.5-14.5) % Plt Count (150-375) k/mm3 MPV (7.4-10.4) fl Immature Gran % (Auto) (0-0.5) % Neut % (Auto) (45.5-73.1) % Lymph % (Auto) (18.3-44.2) % Mohave % (Auto) (2.6-8.5) % Eos % (Auto) (0-4.4) % Baso % (Auto) (0.2-1.2) % Lymph # (Auto) (0.9-3.2) K/mm3 Mohave # (Auto) (0.1-0.6) K/mm3 Eos # (Auto) (0-0.3) K/mm3 Baso # (Auto) (0.0-0.1) K/mm3 Abs Immat Gran (auto) (0.00-0.031) K/mm3 Absolute Neuts (auto) (1.3-6.7) K/mm3 Absolute Nucleated RBC (0.0-0.012) K/mm3 Nucleated RBC % (0.0-0.2) % PT (11.1-14.7) Seconds INR APTT (22.3-36.8) Seconds D-Dimer (<0.48) ug/mL Sodium (137-145) mmol/L Potassium (3.4-5.0) mmol/L Chloride (98-107) mmol/L Carbon Dioxide (22-30) mmol/L Anion Gap (4-12) mmol/L BUN (7-17) mg/dL Creatinine (0.7-1.0) mg/dL Estim Creat Clear Calc ml/min Estimated GFR (59 - ) Glucose (65-110) mg/dL Calcium (8.4-10.2) mg/dL Total Bilirubin (0.2-1.3) mg/dL AST (14-36) U/L ALT (6-35) U/L Alkaline Phosphatase (38-126) U/L Troponin I (0.000-0.034) ng/mL Total Protein (6.3-8.2) g/dL Albumin (3.5-5.1) g/dL Lipase (23-300) U/L POC Urine HCG, Qual Negative (Negative) Influenza A (RT-PCR) (Negative) Influenza B (RT-PCR) (Negative) SARS-CoV-2 RNA (RT-PCR) (Negative) Imaging Data Attestation: I personally reviewed and interpreted this imaging study as follows: My impression: I do not appreciate any consolidations, pneumothorax, mediastinal widening or any other acute cardiopulmonary process. Impressions Chest X-Ray 04/29/24 10:47 IMPRESSION: 1. No acute cardiopulmonary disease. ECG Data EKG #1: Attestation: I personally reviewed and interpreted this ECG as follows: ECG completion date: 04/29/24 ECG completion time: 10:11 Prior ECG tracings: not available for review Interpretation: Regular rate rhythm an axis, no ST segment elevations or depressions or inversions, incomplete right bundle branch block especially in V1 but no contiguous changes. No previous EKG for comparison. Overall normal sinus rhythm. QTC of 451 milliseconds, QRS 106 milliseconds, pr interval 181 milliseconds all within normal limits. Discharge Plan Discharge Clinical Impression: Acute chest wall pain, Costalchondritis Patient Disposition: Home, Self-Care Condition: Stable Instructions: Antibiotic Form, Costochondritis (ED), Chest Wall Pain (ED) Additional Instructions: Your cardiac workup was very reassuring, no acute concerns and there is no ongoing heart damage or lung damage. Would recommend NSAID therapy such as Advil, ibuprofen for any residual aches and pains, if your symptoms do not go away after several weeks I would definitely follow-up with your regular primary care provider but no urgent or emergent concerns from our end today. Patient Language: Cambodian Prescriptions: No Action Nexplanon 68 mg implant 1 implant subdermal ONCE Patient Comments: implant, continuous daily Rx Instructions: as a single dose escitalopram oxalate [Lexapro] 10 mg tablet 20 mg PO DAILY Qty: 90 1RF Follow-up/Referrals: Adelia Barriga, COMPLEX DIRECTOR [Primary Care Provider] - Time of Disposition: 11:28
[2024-04-29 10:30] LABS: Basophils Percent Auto 0.5 % (0.2-1.2); Eosinophils Absolute Auto 0.1 K/mm3 (0-0.3); Eosinophils Percent Auto 1.2 % (0-4.4); Hematocrit 38.9 % (37.0-47.0); Hemoglobin 13.3 g/dL (12.0-15.0); Immature Granulocyte Absolute 0.01 K/mm3 (0.00-0.031); Immature Granulocyte Percent A 0.1 % (0-0.5); Lymphocytes Absolute Auto 2.26 K/mm3 (0.9-3.2); Lymphocytes Percent Auto 29.6 % (18.3-44.2); Mean Corpuscular HGB Conc 34.2 g/dl (32-36); Mean Corpuscular Volume 87.6 fl (80-100); Mean Platelet Volume 10.8 fl (7.4-10.4); Monocytes Absolute Auto 0.5 K/mm3 (0.1-0.6); Monocytes Percent Auto 6.9 % (2.6-8.5); Neutrophils Absolute Auto 4.7 K/mm3 (1.3-6.7); Neutrophils Percent Auto 61.7 % (45.5-73.1); Platelet Count Result 200 k/mm3 (150-375); Red Blood Count 4.44 M/mm3 (4.2-5.4); Red Cell Distribution Width 13.1 % (11.5-14.5); White Blood Count 7.6 K/mm3 (4.5-10.0)
[2024-04-29 10:37] VITALS: O2SAT 97
[2024-04-29] MEDS: ASPIRIN 81 MG CHEWABLE TABLET 324 MG PO (10:41)
[2024-04-29 10:42] LABS: Partial Thromboplastin Time 28.9 Seconds (22.3-36.8); Prothrombin Time 13.7 Seconds (11.1-14.7)
[2024-04-29] MEDS: KETOROLAC 15 MG/ML VIAL (*BKC) IV PUSH (10:42)
[2024-04-29 10:43] LABS: Alanine Aminotransferase 16 U/L (6-35); Albumin Level 4.5 g/dL (3.5-5.1); Alkaline Phosphatase 52 U/L (38-126); Anion Gap 7 mmol/L (4-12); Aspartate Amino Transferase 25 U/L (14-36); Bilirubin,Total 0.7 mg/dL (0.2-1.3); Blood Urea Nitrogen 9 mg/dL (7-17); Calcium 9.6 mg/dL (8.4-10.2); Carbon Dioxide 24 mmol/L (22-30); Chloride 107 mmol/L (98-107); Estimated CRCL calculation 103 ml/min; Estimated Glomerular Filt Rate > 60; Glucose 85 mg/dL (65-110); Lipase 55 U/L (23-300); Potassium 3.7 mmol/L (3.4-5.0); Sodium 138 mmol/L (137-145)
[2024-04-29 10:44] LABS: D Dimer < 0.27 ug/mL (<0.48)
[2024-04-29 10:54] LABS: Troponin I < 0.012 ng/mL (0.000-0.034)
[2024-04-29 10:54] LABS: BEDSIDEPREGUCG Negative (Negative)
[2024-04-29 11:08] LABS: Influenza A QL RT-PCR Negative (Negative); Influenza B QL RT-PCR Negative (Negative); SARS-CoV-2 RNA PCR Negative (Negative)
[2024-04-29 11:42] VITALS: BP 105/60; PULSE 69; RESP 15; TEMP 36.7; O2SAT 97
--- OUTSIDE RECORDS SUMMARY | 2024-05-06 13:08 | XMS_ITS | Clinical Summary ---
Author Organization [facility] Address [address] [place] [place] [address] Care Team Providers Care V Belt Curer Name Role Phone Deborah Collazo MD Primary Care Provider Source Comments [facility],non-owned Affiliates and Associated Physician Practices is amultiple site organization consisting of ambulatory clinics and hospital sitesin [place], [place], [place] and [place]. This disclosure is being madepursuant to the Care Everywhere program and may not contain all information available regarding this patient. Last updated 18.[facility] [employer] Social History Tobacco Use Types Packs/Day Years Used Date Smoking Tobacco: Never Assessed Sex and Gender Information Value Date Recorded Sex Assigned at Not on file Gender Identity Not on file Sexual Orientation Not on file Plan of Treatment Health Maintenance Due Date Last Done Comments PAP SMEAR 2002 HIV SCREENING 2017 HPV VACCINE (1 - 3-dose series) 2017 CHLAMYDIA/GONORRHEA SCREENING 2018 HEPATITIS C SCREENING 06/27/2020 DTAP/TDAP/TD VACCINES (1 - Tdap) 2021 HEPATITIS B VACCINE (1 of 3 - 19+ 3-dose series) 2021 DEPRESSION SCREENING 05/10/2023 COVID-19 VACCINE ( - 2023- season) 2024 INFLUENZA VACCINE (#1) 2024 , 03/09/2018, 02/16/2017, Additional history exists ZOSTER VACCINE (1 of 2) 2052 HIB VACCINE Aged Out No longer eligi ble based on patient's age to complete this topic MENINGOCOCCAL VACCINE Aged Out No jayson javi eligible based on patient's age to complete this topic PNEUMOCOCCAL VACCINE Aged Out No long er eligible based on patient's age to complete this topic Care Teams V Belt Curer Relationship Specialty Start Date End Date Deborah Collazo MD [address] [place] [id number] PCP - General Pediatrics 05/31/20
--- OUTSIDE RECORDS SUMMARY | 2024-05-06 13:08 | XMS_ITS | Data Portability ---
Author Organization [facility] [place] Address [address] [place] [address] [place] [address] Care Team Providers Care Deputy Sheriff Bailiff Name Role Phone AJAY KING Primary Care Provider Assessment No assessment recorded. Plan of Treatment Reminders Order Date Submit Date Provider Last Modified By Organization Details Last Modified Time Details Appointments None recorded. Lab None recorded. Referral None recorded. Procedures None recorded. Surgeries None recorded. Imaging US, pelvis, complete [address], [address], [place], [address], 18:15:41 US, pelvis [address], [address], [place], [address], 22:42:57 US, transvagina l [address], [address], [place], [address], 22:42:57 US, transvagina l [address], [address], [place], [address], 15:37:10 Medication Orders None recorded. Patient TargetsNo targets recorded. Patient InstructionsNo instructions recorded. Reason for Referral None Reported. Results Created Date Observation Date Name Description Value Unit Range Abnormal Flag Note LastModifiedBy Organization Detail LastModifiedTime 09/25/19 22 09/24/2021 US, pelvi s No observ ation record ed. [email or web address], [place], [address], 09/24/2021 16:25:09 09/25/19 22 09/24/2021 US, trans vagin al No observ ation record ed. [email or web address], [place], [address], 09/24/2021 16:25:19 09/25/19 22 09/24/2021 US, pelvi s No observ ation record ed. Vandana [address], [place], [address], 09/14/2022 15:49:13 11/12/19 22 11/11/2021 US, trans vagin al No observ ation record ed. [email or web address], [place], [address], 11/11/2021 11:27:48 11/12/19 22 11/11/2021 US, trans vagin al No observ ation record ed. [address], [place], [address], 09/15/2022 10:25:29 Result Notes None recorded. Procedures Surgical History Date Name Laterality Status Provider Name and Address Organization Details Recorded Time 09/30/19 22 Cholecystectomy completed [facility] 10/02/2021 12:06:25 03/01/20 17 procedure on ankle completed [facility] 09/22/2021 14:21:18 04/01/20 16 procedure on ankle completed [facility] 09/22/2021 14:21:08 Imaging Results Imaging Date Name Status LastModified by Organization Details LastModified Time 09/24/2021 US, pelvis completed [email or web address] [place] [address], [place], [address], 09/24/2021 16:25:09 09/24/2021 US, transvaginal completed [email or web address] [facility] [place] [address], [place], [address], 09/24/2021 16:25:19 09/24/2021 US, pelvis completed Vandana [address], [place], [address], 09/14/2022 15:49:13 11/11/2021 US, transvaginal completed [email or web address] [facility], [place] [address], [place], [address], 11/11/2021 11:27:48 11/11/2021 US, transvaginal completed Vandana [address], [place], [address], 09/15/2022 10:25:29 Procedure Notes None recorded. Medical Equipment None Reported. Allergies Allergen ID Allergen Name Allergen Category Reaction Reaction Severity Criticality Documentation Date Start Date Code Code System Note Provider Name and Address Organization Details Recorded Time 65696 Betadine medicatio n Not available Not available Not available 10/02/2021 0 [facility]Norm JOANNA Henson [address], [place], [address], [facility] 12:35:10 Medications Name Sig Start Date Stop Date Status Note LastModified by Organization Details LastModified Time hydrocodone 5 mg-acetamino phen 325 mg tablet TAKE 1 TABLET BY MOUTH EVERY 6 HOURS NEEDED 09/22 completed Not Available Not Available Not Available oxycodone-ac etaminophen 5 mg-325 mg tablet TAKE 1 TABLET BY MOUTH EVERY 4-6 HOURS NEEDED FOR PAIN active Not Available Not Available No t Available omeprazole 20 mg capsule,nilam yed release TAKE 1 CAPSULE BY MOUTH EVERY DAY IN THE MORNING 09/22 completed Not Available Not Available Not Available levofloxacin 500 mg tablet TAKE 1 TABLET BY MOUTH EVERY 24 HOURS 09/22 completed Not Available Not Available Not Available methylpredni solone 4 mg tablets in a dose pack active Not Available Not Available No t Available 05/29 (28) 1 mg-20 mcg (21)/75 mg (7) tablet TAKE 1 TABLET BY MOUTH EVERY DAY 09/22 completed Not Available Not Available Not Available Vitals Date Recorded Body height Body mass index (BMI) Percentile per age and sex Body mass index (BMI) Body weight Systolic blood pressure Diastolic blood pressure Provider Name and Address Organization Details Last Updated DateTime 2 165.1 cm 96 % 32.8 kg/m2 72770.1 3 g 123 mm[Hg] 75 mm[Hg] [facility] 2 14:40:36 Date Recorded Body height Body mass index (BMI) Percentile per age and sex Body mass index (BMI) Body weight Systolic blood pressure Diastolic blood pressure Provider Name and Address Organization Details Last Updated DateTime 2 165.1 cm 96 % 32.8 kg/m2 45849.7 g 122 mm[Hg] 80 mm[Hg] [facility] 2 12:05:43 Social History Question Answer Notes LastModified by Organizat ion Details LastModified Time Tobacco Smoking Status Current Every Day Smoker [facility] 09/22/2021 14:20:30 What Is Your Level Of Alcohol Consumption? Occasional Information not available 09/22/2021 Are You Blind Or Do You Have Difficulty Seeing? No Information not available 09/22/2021 Are You Deaf Or Do You Have Serious Difficulty Hearing? No Information not available 09/22/2021 What Type Of Diet Are You Following? REGULAR Information not available 09/22/2021 Do You Or Have You Ever Used E-cigarettes Or Vape? Current User Of Electronic Cigarettes Information not available 09/22/2021 Do You Or Have You Ever Used Any Other Forms Of Tobacco Or Nicotine? Yes Information not available 09/22/2021 Sex: Unknown Functional Status Question Answer Note LastModified by Organizat ion Details LastModified Time Do you have difficulty walking or climbing stairs? No Information not available 09/22/2021 Are you able to walk? YESWOREST Information not available 09/22/2021 Are you able to care for yourself? Yes Information not available 09/22/2021 Do you have difficulty dressing or bathing? No Information not available 09/22/2021 What is your exercise level? Occasional Information not available 09/22/2021 Mental Status None recorded. Family History Relationship Description Onset Age of this Age Resolved Age Notes LastModified by Organization Details LastModified Time Mother Heart disease Not available 2021 14:18:34 Mother Diabetes mellitus Not available 2021 14:18:46 Mother Hypercholest erolemia Not available 2021 14:18:56 Mother Hypertensive disorder Not available 2021 14:19:04 Mother Cyst of ovary Not available 2021 14:19:19 Father Diabetes mellitus Not available 2021 14:18:46 Father Hypercholest erolemia Not available 2021 14:18:57 Father Hypertensive disorder Not available 2021 14:19:04 Maternal Grandmother Seizure disorder Not available 2021 14:19:29 Medical History Condition Response Allergies (Food, seasonal, environmental ) Y Other N Breast Cancer N Drug/Latex Allergies/Reactions N Blood Transfusion N Dermatologic Disorders N Lung Disease N Defects or Inherited Disease N Breast Problem N Gestational Diabetes N Hematologic disorders N Anesthesia Complications N History of STI N Deep Vein Thrombosis N Polycystic ovary syndrome N Anxiety Disorder N Autoimmune disease N Arthritis N Infertility N Polyps N Acid Reflux (GERD) N History of abnormal pap N Cancer N Stroke N Varicosities N Neurologic/Epilepsy N Endometriosis N High Cholesterol N Headaches N Fibromyalgia N Kidney Disease N Heart Problems N Kidney or Bladder Problems N Thyroid Problems N GI Problems N Eating Disorder N Anemia N Art (IVF or FET) N Psychiatric Illness N Ovarian Cancer N Diabetes N Pulmonary (TB, Asthma) N Hepatitis/Liver Disease N No Past Medical History N Eczema N Urinary Tract Infection N Abuse/Domestic Violence N Asthma N Trauma/Violence N Depression/ depression N Heart Disease N Pre-Eclampsia N Hypertension N Osteoporosis N Thrombophilias N Gynecological History Statement/Question Response Flow Moderate Date of LMP 09/05/2021 Sexually Active? Y STIs/STDs N Menses Monthly Y HPV Vaccine N Date of Last Pap Smear Sexual Problems? N Current Control Method None LMP Approximate Obstetrics History GPAL:G 0 P 0 0 0 0 Past Encounters Encounter ID Performer Location Encounter Start Date Encounter Closed Date Diagnosis/Indication Diagnosis SNOMED-CT Code Diagnosis ICD10 Code [id number] Susi Kulkarni [facility] [address],[place] [address] 09/22/2021 13:56:07 09/22/2021 15:35:17 Cyst of right ovary 5237387023 [id number] N83.201 [id number] [facility] [address],[place] [address] 09/24/2021 15:28:19 09/24/2021 16:09:00 Cyst of right ovary 5254948864 [id number] N83.291 [id number] Susi Kulkarni SRINIVASA [place] [address],[place] [address] 10/02/2021 11:40:36 10/02/2021 13:15:16 Cyst of ovary 81774570 N83.209 [id number] [employer] [place] [address],[place] [address] 11/11/2021 10:39:35 11/11/2021 13:59:07 Cyst of right ovary 2445367323 6577229 N83.291 Health Concerns Section Related Observation LastModified by Organization Detai ls LastModified Time None Recorded Concern Status LastModified by Organization Details LastModified Time None Recorded Advance Directives Directive None Recorded Payers Encounter Date Sequence Insurance Name Policy Number Policy Manning Covered Member ID Manning Member ID Guarantor Name 09/22/2021 1 [facility] [id number] Jacob Roach Isaac [id number] [facility] 09/24/2021 1 [facility] [id number] Jacob Roach Isaac [id number] [facility] 10/02/2021 1 [facility] [id number] Jacob Roach Isaac [id number] [facility] 11/11/2021 1 [facility] [id number] Jacob Roach Isaac [id number] [facility] Notes Date Note Type Note Provider Name and Address Organization Details Recorded Time 09/22/2021 text/html Here to discuss ovarian cyst seen on CT scan on 09/14/2021 at ED visit for right sided abdominal pain. The patient was found to have a UTI, gallstones, and 2cm right ovarian cyst at ED visit. No u/s was performed, is getting surgery for gallstones in one week. JOANNA Henson [address], [place], [address], [facility] 09/22/2021 15:17:24 10/02/2021 text/html Here for u/s f/u.Recently had gallbladder surgery one week ago. Patient doing well.Is having no pelvic pain JOANNA Henson [address], [place], [address], [facility] 10/02/2021 12:34:34 OBGyn Episode No OBEpisode recorded.
--- OUTSIDE RECORDS SUMMARY | 2024-05-06 13:08 | XMS_ITS | Encounter Summary ---
Author Organization [facility] Address [address] [place] [address] Care Team Providers Care Stockroom Inventory Clerk Name Role Phone Deborah Collazo MD Primary Care Provider Encounter Details Date Type Department Care Team (Late st Contact Info) Description 05/31/2020 11:51 AM COMMERCIAL INSURANCE UNDERWRITER - 05/31/2020 11:58 AM COMMERCIAL INSURANCE UNDERWRITER Hospital Encounter [facility] at [address] [address] Melissa Jones MD [address] [place] [address] Social History Tobacco Use Types Packs/Day Years Used Date Smoking Tobacco: Never Assessed Sex and Gender Information Value Date Recorded Sex Assigned at Not on file Gender Identity Not on file Sexual Orientation Not on file COVID-19 Exposure Response Date Recorded In the last month, have you been in contact with someone who was confirmed or suspected to have Coronavirus / COVID-19? Unable to assess 05/31/2020 11:49 AM COMMERCIAL INSURANCE UNDERWRITER documented as of this encounter Plan of Treatment Not on file documented as of this encounter Visit Diagnoses Diagnosis History of COVID-19 documented in this encounter Care Teams Stockroom Inventory Clerk Relationship Specialty Start Date End Date Deborah Collazo MD [address] [place] [id number] PCP - General Pediatrics 05/31/20 documented as of this encounter
--- OUTSIDE RECORDS SUMMARY | 2024-05-06 13:08 | XMS_ITS | Referral Summary ---
Author Organization [facility] Address [address] [facility] [place] [address] Care Team Providers Care Bias Cutting Machine Operator Name Role Phone Deborah Collazo MD Primary Care Provider Source Comments [facility],non-[facility] Affiliates and Associated Physician Practices is amultiple site organization consisting of ambulatory clinics and hospital sitesin [place], [place], [place] and [place]. This disclosure is being madepursuant to the Care Everywhere program and may not contain all information available regarding this patient. Last updated 18.[facility] Social History Tobacco Use Types Packs/Day Years Used Date Smoking Tobacco: Never Assessed Sex and Gender Information Value Date Recorded Sex Assigned at Not on file Gender Identity Not on file Sexual Orientation Not on file Plan of Treatment Not on file Care Teams Bias Cutting Machine Operator Relationship Specialty Start Date End Date Deborah Collazo MD [address] [place] [id number] PCP - General Pediatrics 05/31/20
--- OUTSIDE RECORDS SUMMARY | 2024-05-06 13:08 | XMS_ITS | Encounter Summary ---
Author Organization [facility] Address [facility] [facility] [place] [address] Care Team Providers Care Asbestos Wire Finisher Name Role Phone Deborah Collazo MD Primary Care Provider [phone] Encounter Details Date Type Department Care Team (Latest Contact Info) Description 05/31/2020 Travel Social History Tobacco Use Types Packs/Day Years [...] COVID-19? Unable to assess 05/31/2020 11:49 AM CAFE WORKER documented as of this encounter Plan of Treatment Not on file documented as of this encounter Visit Diagnoses Not on filedocumented in this encounter Care Teams Asbestos Wire Finisher Relationship Specialty Start Date End Date Deborah Collazo MD [address] [place] [id number] PCP - General Pediatrics 05/31/20 documented as of this encounter
--- OUTSIDE RECORDS SUMMARY | 2024-05-06 13:08 | XMS_ITS | Patient Health Summary ---
Author Organization [facility] Address [address] [facility] [place] [address] Care Team Providers Care Laborer Pipelines Name Role Phone Deborah Collazo MD Primary Care Provider [phone] Note from [facility],non-owned Affiliates and Associated Physician Practices is amultiple site organization consisting of ambulatory clinics and hospital sitesin [place], [place], [place] and [place]. This disclosure is being madepursuant to the Care Everywhere program and may not contain all information available regarding this patient. Last updated 18.[facility] Social History Tobacco Use Types Packs/Day Years Used Date Smoking Tobacco: Never Assessed Sex and Gender Information Value Date Recorded Sex Assigned at Not on file Gender Identity Not on file Sexual Orientation Not on file Care Teams Laborer Pipelines Relationship Specialty Start Date End Date Deborah Collazo MD [address] [place] [id number] PCP - General Pediatrics 05/31/20
--- OUTSIDE RECORDS SUMMARY | 2024-05-06 13:47 | XMS_ITS | Encounter Summary ---
Author Organization [facility] Address [address] [facility] [place] [address] Care Team Providers Care Marketing Database Analyst Name Role Phone Deborah Collazo MD Primary Care Provider Encounter Details Date Type Department Care Team (Late st Contact Info) Description 05/31/2020 11:51 AM RAILWAY STATION MANAGER - 05/31/2020 11:58 AM RAILWAY STATION MANAGER Hospital Encounter [facility] at [address] [address] Melissa Jones MD [address] [place] [address] Social History Tobacco Use Types Packs/Day Years [...] COVID-19? Unable to assess 05/31/2020 11:49 AM RAILWAY STATION MANAGER documented as of this encounter Plan of Treatment Not on file documented as of this encounter Visit Diagnoses Diagnosis History of COVID-19 documented in this encounter Care Teams Marketing Database Analyst Relationship Specialty Start Date End Date Deborah Collazo MD [address] [place] [id number] PCP - General Pediatrics 05/31/20 documented as of this encounter
--- OUTSIDE RECORDS SUMMARY | 2024-05-06 13:47 | XMS_ITS | Encounter Summary ---
Author Organization [facility] Address [facility] [facility] [place] [address] Care Team Providers Care Physicist Cryogenics Name Role Phone Deborah Collazo MD Primary Care Provider [phone] Encounter Details Date Type Department Care Team [...] COVID-19? Unable to assess 05/31/2020 11:49 AM FIRM ADMINISTRATOR documented as of this encounter Plan of Treatment Not on file documented as of this encounter Visit Diagnoses Not on filedocumented in this encounter Care Teams Physicist Cryogenics Relationship Specialty Start Date End Date Deborah Collazo MD [address] [place] [id number] PCP - General Pediatrics 05/31/20 documented as of this encounter
--- OUTSIDE RECORDS SUMMARY | 2024-05-06 13:47 | XMS_ITS | Encounter Summary ---
Author Organization [facility] Address [address] [place] [address] Care Team Providers Care Canvas Cutter Machine Name Role Phone Deborah Collazo MD Primary Care Provider [phone] Reason for Referral * Diagnostic Imaging (Routine) - Closed Specialty Diagnoses / Procedures Referred By Fer t Referred To Contact Diagnoses Left ankle pain, unspecified chronicity Procedures XR Ankle Left 3 or More Views Rick Lima MD [address] [address] Phone: tel: fax: [facility] Referral ID Status Reason Start Date Expiration Date Visits Re quested Visits Authorized [id number] Closed 03/13/2020 04/12/2021 1 1 CTOR OF EPIDEMIOLOGY Reason for Visit * Diagnostic Imaging (Routine) - Closed Specialty Diagnoses / Procedures Referred By Contseferino t Referred To Contact Diagnoses Left ankle pain, unspecified chronicity Procedures XR Ankle Left 3 or More Views Rick Lima MD [address] [address] Phone: tel:[phone] fax: [facility] Referral ID Status Reason Start Date Expiration Date Visits Re quested Visits Authorized [id number] Closed 03/13/2020 04/12/2021 1 1 Encounter Details Date Type Department Care Team (Late st Contact Info) Description 03/13/2020 11:34 AM DIRECTOR OF EPIDEMIOLOGY - 03/13/2020 11:59 PM DIRECTOR OF EPIDEMIOLOGY Hospital Encounter [facility] Diagnostic Imaging Department [address] [place] [address] Rick Lima MD [address] [place] [address] Left ankle pain, unspecified chronicity Discharge Disposition: Discharge to home or self care Social History Tobacco Use Types Packs/Day Years Used Date Smoking Tobacco: Never Comments Unknown Sex and Gender Information Value Date Recorded Sex Assigned at Not on file Legal Sex Female 8:57 AM DIRECTOR OF EPIDEMIOLOGY Gender Identity Not on file Sexual Orientation Not on file documented as of this encounter Medications at Time of Discharge meloxicam (MOBIC) 7.5 mg tabletIndications: Left ankle pain, unspecified chronicity Take 1 tablet (7.5 mg total) by mouth daily 30 tablet 03/13/2020 04/12/2020 documented as of this encounter Discharge Disposition Disposition Code Departure Means Destination Discharge to home or self care documented in this encounter Plan of Treatment Not on file documented as of this encounter Procedures Procedure Name Priority Date/Time Associated Diagnosis Comments XR ANKLE LEFT 3 OR MORE VIEWS Schedule Routine, Read Routine (OP Routine) 03/13/2020 11:35 AM DIRECTOR OF EPIDEMIOLOGY Left ankle pain, unspecified chronicity documented in this encounter Results * XR Ankle Left 3 or More Views (03/13/2020 11:35 AM DIRECTOR OF EPIDEMIOLOGY) Anatomical Region Laterality Modality Lower Extremities, Ankle Left Compute d Radiography 03/13/2020 11:4 1 AM DIRECTOR OF EPIDEMIOLOGY Impressions 03/13/2020 11:41 AM DIRECTOR OF EPIDEMIOLOGY 1. ??Healed distal left fibular and left posterior malleolar fractures. Normal alignment and joint spaces. Electronically signed by: Triston Walker M.D. Narrative 03/13/2020 11:41 AM DIRECTOR OF EPIDEMIOLOGY EXAMINATION: ??XR ANKLE LEFT 3 OR MORE VIEWS HISTORY: ??History of left distal fibula ORIF and hardware removal FINDINGS: ??3 weightbearing views of the left ankle are compared to 03/10/2017. Defects are again seen from distal left fibular internal fixation and syndesmotic wire fixation. Miniscule metallic fragments are again seen in the syndesmosis. The joint spaces are normal. Alignment is normal. There is no acute fracture. The distal left fibular fracture is healed. The posterior malleolar fracture is also healed. Procedure Note Triston Walker MD - 03/13/2020 EXAMINATION: XR ANKLE LEFT 3 OR MORE VIEWS HISTORY: History of left distal fibula ORIF and hardware removal FINDINGS: 3 weightbearing views of the left ankle are compared to 03/10/2017. Defects are again seen from distal left fibular internal fixation and syndesmotic wire fixation. Miniscule metallic fragments are again seen in the syndesmosis. The joint spaces are normal. Alignment is normal. There is no acute fracture. The distal left fibular fracture is healed. The posterior malleolar fracture is also healed. IMPRESSION: 1. Healed distal left fibular and left posterior malleolar fractures. Normal alignment and joint spaces. Electronically signed by: Triston Walker M.D. Rick Lima MD IMG XR PROCEDURES Final Result documented in this encounter Visit Diagnoses Diagnosis Left ankle pain, unspecified chronicity documented in this encounter Care Teams Canvas Cutter Machine Relationship Specialty Start Date End Date Deborah Collazo MD PCP - General 06/24/16 documented as of this encounter
--- OUTSIDE RECORDS SUMMARY | 2024-05-06 13:47 | XMS_ITS | Referral Summary ---
Author Organization [facility] Address [address] [facility] [place] [address] Care Team Providers Care Manager News Name Role Phone Deborah Collazo MD Primary Care Provider [phone] Source Comments [facility],non-[facility] Affiliates and Associated Physician Practices is amultiple site organization consisting of ambulatory clinics and hospital sitesin [place], [place], [place] and [place]. This disclosure is being madepursuant to the Care Everywhere program and may not contain all information available regarding this patient. Last updated 18.[facility] Social History Tobacco Use Types Packs/Day Years Used Date Smoking Tobacco: Never Assessed Sex and Gender Information Value Date Recorded Sex Assigned at Not on file Gender Identity Not on file Sexual Orientation Not on file Plan of Treatment Not on file Care Teams Manager News Relationship Specialty Start Date End Date Deborah Collazo MD [address] [place] [phone] PCP - General Pediatrics 05/31/20
--- OUTSIDE RECORDS SUMMARY | 2024-05-06 13:47 | XMS_ITS | Encounter Summary ---
Author Organization [facility] Address [address] [place] [address] Phone Care Team Providers Care Boiler Repair Supervisor Name Role Phone Deborah Collazo MD Primary Care Provider [phone] Reason for Referral * Diagnostic Imaging (Routine) - Closed Specialty Diagnoses / Procedures Referred By Fer t Referred To Contact Diagnoses Left ankle pain, unspecified chronicity Procedures XR Ankle Left 3 or More Views Rick Lima MD [address] [facility] [address] [place] [address] Phone: tel: fax: [facility] Specialty Care [facility] Referral ID Status Reason Start Date Expiration Date Visits Re quested Visits Authorized [id number] Closed 03/13/2020 04/12/2021 1 1 WORKER Reason for Visit * Reason Comments Pain Encounter Details Date Type Department Care Team (Late st Contact Info) Description 03/13/2020 11:20 AM PULL WORKER Office Visit [facility] [address] [facility] 1[address] [place] [address] Rick Lima MD [address] [facility] [address] [place] [address] Left ankle pain, unspecified chronicity (Primary Dx) Social History Tobacco Use Types Packs/Day Years Used Date Smoking Tobacco: Never Comments Unknown Sex and Gender Information Value Date Recorded Sex Assigned at Not on file Legal Sex Female 8:57 AM PULL WORKER Gender Identity Not on file Sexual Orientation Not on file documented as of this encounter Ordered Prescriptions Prescription Sig Dispense Quantity Refills Last Filled Start Date End Date meloxicam (MOBIC) 7.5 mg tabletIndications: Left ankle pain, unspecified chronicity Take 1 tablet (7.5 mg total) by mouth daily 30 tablet 03/13/2020 04/12/2020 documented in this encounter Progress Notes * Rick Lima MD - 03/13/2020 11:20 AM CST ESTABLISHED PATIENT VISIT INTERIM HISTORY: Aditi returns today for follow up of her left ankle. She underwent surgical fixation of the left ankle fracture March of 2016 and subsequently had her hardware out in February 2017. She had been doing fine up until approximately 3 months ago when she began having primarily lateral based pain with some medial based pain. Pain is worse with activity. She particularly notices this on uneven ground. She has not tried any intervention at this point. PHYSICAL EXAM: left ankle and foot are examined. Examination of her midfoot and forefoot is benign. Nontender palpation throughout. No pain with motion of her subtalar joint either and overall her hindfoot is relatively benign as well. She has some pain about the incision medially. Nontender palpation of her posterior tibialis tendon. No pain with stressing this. Pain on lateral aspect of her ankle is along thecourse of her peroneal tendons. No subluxation noted. Pain is worsened with resisted eversion. She does maintain 5/5 eversion, inversion, plantar flexion and dorsiflexion. Sensation is intact to light touch throughout. Her surgical incisions are healed. REVIEW OF X-RAYS/STUDIES: Radiographs demonstrate maintained joint spaces. Evidence of previous hardware and subsequent removal ASSESSMENT/PLAN: 19-year-old female left peroneal tendinitis I discussed her symptoms, exam and imaging. I discussed multiple treatment options with her. This time her exam is most consistent with peroneal tendinitis. Plan for her to be immobilized in a Cam walking approximately 2 weeks. She can begin to wean out of her boot at that time. Also started on some anti-inflammatories with Mobic. If she continues have difficulty we will start strengthening program in physical therapy. She will call us in 3 weeks, if she has continued difficulty and we will give her a prescription for physical therapy. Rick Lima M.D., M.S. Coastal/Harbor Defense Officer [facility] WORKER documented in this encounter Plan of Treatment Not on file documented as of this encounter Results * XR Ankle Left 3 or More Views (03/13/2020 11:35 AM PULL WORKER) Anatomical Region Laterality Modality Lower Extremities, Ankle Left Compute d Radiography 03/13/2020 11:4 1 AM PULL WORKER Impressions 03/13/2020 11:41 AM PULL WORKER 1. ??Healed distal left fibular and left posterior malleolar fractures. Normal alignment and joint spaces. Electronically signed by: Triston Walker M.D. Narrative 03/13/2020 11:41 AM PULL WORKER EXAMINATION: ??XR ANKLE LEFT 3 OR MORE [...] spaces. Electronically signed by: Triston Walker M.D. us Rick Lima MD IMG XR PROCEDURES Final Result documented in this encounter Visit Diagnoses Diagnosis Left ankle pain, unspecified chronicity- Primary Left ankle pain, unspecified chronicity documented in this encounter Care Teams Boiler Repair Supervisor Relationship Specialty Start Date End Date Deborah Collazo MD PCP - General 06/24/16 documented as of this encounter
--- OUTSIDE RECORDS SUMMARY | 2024-05-06 13:47 | XMS_ITS | Patient Health Summary ---
Author Organization [facility] Address [address] [place] [address] Care Team Providers Care County Or [place] Auditor Name Role Phone Deborah Collazo MD Primary Care Provider Note from [facility],non-owned Affiliates and Associated Physician Practices is amultiple site organization consisting of ambulatory clinics and hospital sitesin [place], [place], [place] and [place]. This disclosure is being madepursuant to the Care Everywhere program and may not contain all information available regarding this patient. Last updated 18.[facility] Social History Tobacco Use Types Packs/Day Years Used Date Smoking Tobacco: Never Assessed Sex and Gender Information Value Date Recorded Sex Assigned at Not on file Gender Identity Not on file Sexual Orientation Not on file Care Teams [place] Auditor Relationship Specialty Start Date End Date Deborah Collazo MD [address] [place] [phone] PCP - General Pediatrics 05/31/20
--- OUTSIDE RECORDS SUMMARY | 2024-05-06 13:47 | XMS_ITS | Encounter Summary ---
Author Organization [facility] Healthcare Address [address] [place] [address] Care Team Providers Care Oral Surgery Assistant Name Role Phone Deborah Collazo MD Primary Care Provider [phone] Encounter Details Date Type Department Care Team (Late st Contact Info) Description 06/07/2017 7:03 AM POLYMER SPECIALIST - 06/07/2017 11:59 PM POLYMER SPECIALIST Hospital Encounter [facility] [phone] Andreas Daniels MD [address] [place] [address] Luz Tucker NP [address] [facility] [address] [place] [address] Discharge Disposition: Discharge to home or self care Social History Tobacco Use Types Packs/Day Years Used Date Smoking Tobacco: Never Comments Unknown Sex and Gender Information Value Date Recorded Sex Assigned at Not on file Legal Sex Female 8:57 AM POLYMER SPECIALIST Gender Identity Not on file Sexual Orientation Not on file documented as of this encounter Discharge Disposition Disposition Code Departure Means Destination Discharge to home or self care documented in this encounter Plan of Treatment Not on file documented as of this encounter Procedures Procedure Name Priority Date/Time Associated Diagnosis Comments MRI ABDOMEN WO CONTRAST Routine 06/07/2017 2:59 PM POLYMER SPECIALIST documented in this encounter Results * MRI Abdomen WO Contrast (06/07/2017 2:59 PM POLYMER SPECIALIST) Anatomical Region Laterality Modality Body N/A Magnetic Resonan ce 06/07/2017 2:59 PM POLYMER SPECIALIST Narrative 06/07/2017 6:59 PM POLYMER SPECIALIST Drea LOPEZ M.D. FINAL REPORT The radiology attending physician has personally reviewed this study, and has reviewed and/or edited this written report and agrees with it. ACC# ??Date Time ??Exam [id number] Jun 07, 2017 08:59:00 [id number] MRI ABD ENTEROGRAPY WWO EXAMINATION: ??[id number] MRI ABD ENTEROGRAPY WWO HISTORY: ??16-year-old girl with abdominal pain and vomiting found to have duodenitis and antral gastritis on upper endoscopy dated 05/12/2017. ??TECHNIQUE: ??Magnetic resonance images of the abdomen were obtained prior to and following the administration of intravenous gadolinium contrast. Oral Breeza and 1 mg of intramuscular glucagon was administered prior to the examination. Protocol: ??MR enterography Contrast: ??Dotarem 20 mL COMPARISON: ??No prior magnetic resonance imaging is available for comparison. FINDINGS: Small Bowel: ?? There is incomplete distention of the terminal ileum which limits evaluation at this location; apparent minimal enhancement of the terminal ileum is likely secondary to lack of distention. ??There is no definitive small bowel wall thickening or hyperenhancement. ??The duodenum appears normal. Large Bowel: ??Normal Liver/bile ducts: ??Normal Gallbladder: ??Normal Pancreas: ??Normal Spleen: ??Normal Adrenals: ??Normal Kidneys: ??Normal other than a tiny cyst in the right kidney. Pelvis: Bladder: ??Normal Reproductive organs: ??Normal uterus and ovaries. Perianal Region: Normal Other Findings: ??There is trace amount of free fluid in the pelvis, physiologic. ??The appendix is normal. IMPRESSION: ??No MR evidence of active small or large bowel inflammation. Electronically signed by: Neel Mcknight M.D. Requested By: LUZ TUCKER Dictated By: ?? EDDI RAJAN M.D. ??on Jun 07 2017 10:38A This document has been electronically signed by: NEEL MCKNIGHT M.D. on Jun 07 2017 12:57P Drea LOPEZ M.D. FINAL REPORT The radiology attending physician has personally reviewed this study, and has reviewed and/or edited this written report and agrees with it. Attending: ??STARLA, ??ANDREAS Requesting: ??ANGEL, ??LUZ Requesting Fax: ?? Attending Fax: ?? Attending ID: ??[id number] Requesting ID: ??[id number] Report To 1 ID: ??[id number] ? Report To 1 Name: ??, ?? Report To 1 FAX: ?? NextGen Order #: ?? Procedure Note Miscellaneous, Not In File - 06/07/2017 NEEL MCKNIGHT M.D. EDDI RAJAN M.D. FINAL REPORT The radiology attending physician has personally reviewed this study, and has reviewed and/or edited this written report and agrees with it. ACC# Date Time Exam [id number] Jun 07, 2017 08:59:00 [id number] MRI ABD ENTEROGRAPY WWO EXAMINATION: [id number] MRI ABD ENTEROGRAPY WWO HISTORY: 16-year-old girl with abdominal pain and vomiting found to have duodenitis and antral gastritis on upper endoscopy dated 05/12/2017. TECHNIQUE: Magnetic resonance images of the abdomen were obtained prior to and following the administration of intravenous gadolinium contrast. Oral Breeza and 1 mg of intramuscular glucagon was administered prior to the examination. Protocol: MR enterography Contrast: Dotarem 20 mL COMPARISON: No prior magnetic resonance imaging is available for comparison. FINDINGS: Small Bowel: There is incomplete distention of the terminal ileum which limits evaluation at this location; apparent minimal enhancement of the terminal ileum is likely secondary to lack of distention. There is no definitive small bowel wall thickening or hyperenhancement. The duodenum appears normal. Large Bowel: Normal Liver/bile ducts: Normal Gallbladder: Normal Pancreas: Normal Spleen: Normal Adrenals: Normal Kidneys: Normal other than a tiny cyst in the right kidney. Pelvis: Bladder: Normal Reproductive organs: Normal uterus and ovaries. Perianal Region: Normal Other Findings: There is trace amount of free fluid in the pelvis, physiologic. The appendix is normal. IMPRESSION: No MR evidence of active small or large bowel inflammation. Electronically signed by: Neel Mcknight M.D. Requested By: LUZ TUCKER PNP Dictated By: EDDI RAJAN M.D. on Jun 07 2017 10:38A This document has been electronically signed by: NEEL MCKNIGHT M.D. on Jun 07 2017 12:57P NEEL MCKNIGHT M.D. EDDI RAJAN M.D. FINAL REPORT The radiology attending physician has personally reviewed this study, and has reviewed and/or edited this written report and agrees with it. Attending: ANDREAS DANIELS Requesting: LUZ TUCKER Requesting Fax: Attending Fax: Attending ID: [id number] Requesting ID: [id number] Report To 1 ID: [id number] Report To 1 Name: , Report To 1 FAX: NextGen Order #: Luz Tucker BARREL ASSEMBLER IMG MRI PROCEDURES Pratibha l Result documented in this encounter Visit Diagnoses Not on filedocumented in this encounter Care Teams Oral Surgery Assistant Relationship Specialty Start Date End Date Deborah Collazo MD PCP - General 06/24/16 documented as of this encounter
--- OUTSIDE RECORDS SUMMARY | 2024-05-06 13:47 | XMS_ITS | Encounter Summary ---
Author Organization [facility] Healthcare Address [address] [place] [address] Care Team Providers Care Structural Worker Name Role Phone Deborah Collazo MD Primary Care Provider [phone] Reason for Visit * Reason Comments Abdominal Pain Encounter Details Date Type Department Care Team (Late st Contact Info) Description 07/14/2023 3:10 AM SHOE FITTER - 07/14/2023 4:30 AM SHOE FITTER Emergency [facility] Emergency Department [address] [place] [address] Tiki Taylor MD [address] [place] [address] Abdominal pain (Primary Dx) Discharge Disposition: Discharge to home or self care Social History Tobacco Use Types Packs/Day Years Used Date Smoking Tobacco: Never Personal Safety Answer Date Recorded Have you ever been in or are you currently in a harmful physical or emotional relationship or is someone making you feel afraid or unsafe? Denies 07/14/2023 Comments Unknown Sex and Gender Information Value Date Recorded Sex Assigned at Not on file Legal Sex Female 8:57 AM SHOE FITTER Gender Identity Not on file Sexual Orientation Not on file documented as of this encounter Last Filed Vital Signs Vital Sign Reading Time Taken Comments Blood Pressure 110/62 07/14/2023 4:30 AM SHOE FITTER Pulse 54 07/14/2023 4:30 AM SHOE FITTER Temperature 36.3 ??C (97.3 ??F) 07/14/2023 4:30 AM CS T Respiratory Rate 16 07/14/2023 4:30 AM SHOE FITTER Oxygen Saturation 99% 07/14/2023 4:30 AM SHOE FITTER Inhaled Oxygen Concentration - - Weight 86.2 kg (190 lb) 07/14/2023 12:32 AM SHOE FITTER Height 165.1 cm (5' 5 ) 07/14/2023 12:32 AM SHOE FITTER Body Mass Index 31.62 07/14/2023 12:32 AM SHOE FITTER documented in this encounter Discharge Instructions * Discharge Instructions* Tiki Taylor MD - 07/14/2023 4:05 AM SHOE FITTER Discussed symptoms with the primary care doctor. Right upper quadrant ultrasound might be helpful. Gastroenterology consult may be helpful. Please return to the emergency department for intractable vomiting, inability to stay hydrated for any reason, fever, vomiting blood, worsening of symptoms, or any new concerning symptoms. FITTER * Attachments The following attachments cannot be sent through Care Everywhere. * Abdominal Pain, Unknown Cause, (Female) (Iraqi) * Epigastric Pain (Uncertain Cause) (Iraqi) documented in this encounter Medications at Time of Discharge famotidine (PEPCID) 40 mg tablet Take 1 tablet (40 mg total) by mouth nightly for 14 days Take 40 mg by mouth before going to sleep for 2 weeks. After that , take 1 tablet orally once daily as needed for heartburn or indigestion 30 tablet 07/14/2023 ondansetron ODT (ZOFRAN-ODT) 4 mg disintegrating tablet Take 1-2 tablets (4-8 mg total) by mouth every 8 (eight) hours as needed for nausea or vomiting 20 tablet 07/14/2023 documented as of this encounter Ordered Prescriptions Prescription Sig Dispense Quantity Refills Last Filled Start Date End Date ondansetron ODT (ZOFRAN-ODT) 4 mg disintegrating tablet Take 1-2 tablets (4-8 mg total) by mouth every 8 (eight) hours as needed for nausea or vomiting 20 tablet 07/14/2023 famotidine (PEPCID) 40 mg tablet Take 1 tablet (40 mg total) by mouth nightly for 14 days Take 40 mg by mouth before going to sleep for 2 weeks. After that , take 1 tablet orally once daily as needed for heartburn or indigestion 30 tablet 07/14/2023 documented in this encounter Discharge Disposition Disposition Code Departure Means Destination Comment s Discharge to home or self care documented in this encounter ED Notes * Tiki Taylor MD - 07/14/2023 4:07 AM CST Triage Chief Complaint: Chief Complaint Patient presents with Abdominal Pain Portions of the record may have been created with voice recognition software. Occasional wrong-word or '[id number]' substitutions may have occurred due to the inherent limitations of voice recognition software. Read the chart carefully and recognize, using context, where substitutions have occurred. H&P: Aditi Garcia is a 23 y.o. female with h/o cholecystectomy and gastritis diagnosed in 2018 on pediatric EGD presents for right upper quadrant pain, worse after eating, has been present for at least a week but over the last 2 days it is become constant. It is also little bit worse going over bumps or with certain movements. No chest pain or shortness of breath or cough. No hemoptysis. No hematemesis. No change in bowel habits or black or bloody stool. No dysuria frequency urgency or abnormal vaginal bleeding or discharge. Currently menstruating. Went to the emergency department at [facility] yesterday for the same symptoms and had a workup including a CT scan it was discharged without clear etiology of her symptoms. Patient was sexually active with condoms with 1 male sex partner. 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 Was planning to reach out to her primary care doctor for re-evaluation but had not had the opportunity to do so yet. Nauseated but no vomiting. Past medical/past surgical/meds: History reviewed. No pertinent past medical history. History reviewed. No pertinent surgical history. Nursing Notes Reviewed. Physical Exam: ED Triage Vitals [07/14/23 0032] Temp Pulse Resp BP SpO2 36.3 ??C (97.4 ??F) 50 18 124/64 100 % Temp src Heart Rate Source Patient Position BP Location FiO2 (%) Temporal -- -- -- -- Height Height Method Weight Weight Method 1.651 m (5' 5 ) Stated 86.2 kg (190 lb) Stated GENERAL APPEARANCE: Awake and alert. No acute distress. HEAD: Atraumatic. EYES: Sclera anicteric. EOMI. ENT: Tolerates saliva. NECK: Supple. Trachea midline. HEART: RRR. Radial pulses 2+. LUNGS: Respirations unlabored. CTAB. ABDOMEN: Soft. Non-tender. No guarding or rebound. No pain at McBurney's point EXTREMITIES: No acute deformities. SKIN: Warm and dry. NEUROLOGICAL: No gross facial drooping. Moves all 4 extremities spontaneously. Normal speech and mental status. No ataxia noted. PSYCHIATRIC: Normal mood. I have reviewed and interpreted all of the currently available lab results from this visit (if applicable): Labs Reviewed URINALYSIS AND REFLEX TO MICROSCOPIC AND CULTURE - Abnormal Result Value Color, ur Yellow Clarity, ur Clear Specific gravity, ur 1.018 pH, urine 5.5 Protein, ur ql Negative Glucose, ur ql Negative Ketones, ur 2+ (*) Bilirubin, ur Negative Blood, ur Negative Urobilinogen, ur <2.0 Nitrite, ur Negative Leukocyte esterase, ur Negative UA reflex comment Value: Reflex conditions for microscopic UA and culture not met. POCT HCG, URINE - Normal HCG, ur, POC Negative Lot Number [id number] QC Backgroud Clear Acceptable QC Control Line Acceptable CBC WITH AUTO DIFFERENTIAL WBC 6.7 Hgb 12.6 Hct 37.0 Plt 159 MPV 10.7 RBC 4.23 MCV 87.5 MCH 29.8 MCHC 34.1 RDW CV 12.9 RDW SD 41.0 NRBC abs 0.00 COMPREHENSIVE METABOLIC PANEL Sodium 138 Potassium, pl 3.7 Chloride 104 CO2 23 Anion gap 11 BUN 8 Creatinine 0.85 Glucose 92 Calcium 9.1 Bilirubin, total 0.6 Protein, pl 7.1 Albumin 4.3 Alk phos 50 ALT 14 AST 16 LIPASE Lipase 22 DIFFERENTIAL AUTO Neutrophil abs 4.5 Imm gran abs 0.0 Lymphocyte abs 1.7 Monocyte abs 0.4 Eosinophil abs 0.1 Basophil abs 0.0 Neutrophil pct 67.3 Imm gran pct 0.1 Lymphocyte pct 25.0 Monocyte pct 6.6 Eosinophil pct 0.9 Basophil pct 0.1 EGFR eGFR 100 CRP (ACUTE PHASE) CRP <3.0 Radiographs (if obtained): Report Reviewed: No orders to display EKG (if obtained): (All EKGs are interpreted by myself in the absence of a rail doweling machine operator) Procedures Chart/outside records review shows: The patient was able to bring up her outside records from [facility] including the CT scan report. CT scan abdomen pelvis with contrast was obtained during her ED visit for the same symptoms yesterday. I read the written report from her CT scan through the patient healthcare portal. It reads that she has no gallbladder, her appendix looked normal, she had a simple cyst in the right kidney that was 1 cm and there were no findings that would explain her symptoms. Pediatric upper GI endoscopy 05/12/2017 with eroded and nodular mucosa in the antrum and moderate mucosal abnormality in the duodenum biopsied for histology and H pylori surgical pathology showed in the stomach focal active gastritis with reactive change, no obvious microorganisms, no significant histopathologic abnormality in the esophagus ED course/MDM: External chart review: (details typically documented under ED workup or in chart/outside record review above in my note, if obtained) History obtained by: (Typically documented in the HPI section, sometimes in ED course when obtainedfrom additional historians but not at the initial time of patient presentation.) Discussion of management: (typically conversations time stamped and documented in ED course), Independent interpretation studies: (typically documented in ED course and please note that labs and Radiology reads obtained in the ED and listed above have been reviewed) Vitals: 07/14/23 0032 07/14/23 0400 07/14/23 0430 BP: 124/64 107/77 110/62 Pulse: 50 56 54 Resp: 18 16 16 Temp: 36.3 ??C (97.4 ??F) 36.3 ??C (97.3 ??F) TempSrc: Temporal SpO2: 100% 99% 99% Weight: 86.2 kg (190 lb) Height: 165.1 cm (5' 5 ) MDM: 23-year-old with history of cholecystectomy with a right upper quadrant pain and nausea. No GUcomplaints. No pain at McBurney's point. CT scan yesterday was negative for acute appendicitis. Symptoms have been going on for over week. It sounds like it could be biliary colic except the patient has no gallbladder making that very unlikely. Lab work is very reassuring just like it was yesterdayat [facility]. She was tolerating p.o.. No indication for further ED workup or treatment. Patient does have a history of gastritis when she was having abdominal pain has a child diagnosed by EGD with pediatric Gastroenterology at [facility]. Will treat for possible gastritis. We went over the signs and symptoms that would necessitate immediate return to the emergency department orre-evaluation. Considered getting right upper quadrant ultrasound, but the patient does not have a gallbladder and we do not have ultrasound available after hours. I considered getting a CT scan but she was only 23 years old and just had 1 yesterday. I do not think the risk of radiation justifies the unlikely benefit of repeat imaging. We discussed pelvic exam but the patient is really not havingpelvic symptoms, doubt PID or tubo-ovarian abscess. Negative test. Doubt perforated peptic ulcer disease or hollow viscus perforation or acute pancreatitis or acute painful hepatitis especially in the setting of normal reassuring lab work. Medication management: Discharge with Zofran and Pepcid Discharge instructions: The patient and I have discussed results, diagnosis and or diagnostic uncertainty and the need for follow-up. We have discussed follow- up instructions and return precautions, to which the patient verbalized understanding and agreement. Clinical Impression: 1. Abdominal pain Disposition: Discharge (Please note that portions of this note may have been completed with a voice recognition program. Braille Duplicating Machine Operator errors occur. Please contact me for any clarification.) Tiki Taylor MD 07/14/23 0528 FITTER * Lionel Freitas RN - 07/14/2023 12:30 AM CST Pt ambulatory to triage c/o RLQ abd pain and nausea intermittently x 1 week. Pt was seen at [facility] yesterday and given a full workup and diagnosed with dehydration. Pt reports symptoms continue today. Pt denies all other symptoms FITTER documented in this encounter Plan of Treatment Pending Results Name Type Priority Associated Diagnoses Date /Time POCT hCG, urine Point of Care Testing Routine 07/14/2023 12:50 AM SHOE FITTER documented as of this encounter Procedures Procedure Name Priority Date/Time Associated Diagnosis Comments URINALYSIS AND REFLEX TO MICROSCOPIC AND CULTURE STAT 07/14/2023 12:51 AM SHOE FITTER POCT HCG, URINE Routine 07/14/2023 12:50 AM SHOE FITTER EGFR STAT 07/14/2023 12:39 AM SHOE FITTER DIFFERENTIAL AUTO STAT 07/14/2023 12: 39 AM SHOE FITTER CBC WITH AUTO DIFFERENTIAL STAT 07/14/2023 12:39 AM SHOE FITTER CRP (ACUTE PHASE) STAT 07/14/2023 12: 39 AM SHOE FITTER LIPASE STAT 07/14/2023 12:39 AM SHOE FITTER COMPREHENSIVE METABOLIC PANEL STAT 07/14/2023 12:39 AM SHOE FITTER documented in this encounter Results * (ABNORMAL) Urinalysis reflex to microscopic and culture Urine (07/14/2023 12:51 AM SHOE FITTER) Color, ur Yellow Yellow [facility] ([place]) Clarity, ur Clear Clear [facility] ([place]) Specific gravity, ur 1.018 1.003 - 1.030 [facility] ([place]) pH, urine 5.5 [facility] ([place]) Comment: Interpretive Data ? Urine pH is affected by diet, medications, systemic acid-base disturbances, and renal tubular function. ??pH may affect urinary stone formation. ??For example, urine pH below 6.0 may help reduce the tendency for calcium phosphate stones and pH greater than 6.0 may reduce the tendency for uric acid stone formation. Source: [facility] [employer] Current Interpretive Data was last revised on 2017 Protein, ur ql Negative Negative [facility] ([place]) Glucose, ur ql Negative Negative [facility] ([place]) Ketones, ur 2+(A) Negative [facility] ([place]) Bilirubin, ur Negative Negative [facility] ([place]) Blood, ur Negative Negative [facility] ([place]) Urobilinogen, ur <2.0 <2.0 mg/dL [facility] ([place]) Nitrite, ur Negative Negative [facility] ([place]) Leukocyte esterase, ur Negative Negative [facility] ([place]) UA reflex comment Reflex conditions for microscopic UA and culture not met. [facility] ([place]) Urine 07/14/2023 12:5 1 AM SHOE FITTER 07/14/2023 12:56 AM SHOE FITTER us Tiki Taylor MD LAB MICROBIOLOGY - GENER AL ORDERABLES Final Result Performing Organization Address City/[facility]/ZIP Co de Phone Number [facility] ([place]) 1 [facility] Department of [employer] [place] [address] * CRP (acute phase) (07/14/2023 12:39 AM SHOE FITTER) CRP <3.0 <=10.0 mg/L TRACY Morocho ([place]) Blood 07/14/2023 12:3 9 AM SHOE FITTER 07/14/2023 3:33 AM SHOE FITTER us Tiki Taylor MD LAB BLOOD ORDERABLES Fin al Result Performing Organization Address [facility] de Phone Number TR[facility] ([place]) 1 [facility] [place] [address] * eGFR (07/14/2023 12:39 AM SHOE FITTER) eGFR 100 mL/min/1. 73 m2 [facility] ([place]) Comment: Interpretive Data Reference Interval Normal ?>/= 90 mL/min/1.73m2 Mildly decreased* ? 60 - 89 mL/min/1.73m2 Mildly to moderately decreased ?45 - 59 mL/min/1.73m2 Moderately to severely decreased ??30 - 44 mL/min/1.73m2 Severely decreased ?15 - 29 mL/min/1.73m2 Kidney Failure ?< 15 ??mL/min/1.73m2 *Relative to young adult level Estimated glomerular filtration rate is determined by the 2020 CKD-EPI equation recommended by the National Kidney Foundation (A Unifying Approach to GFR Estimation: Recommendations of the NKF-ASK Task Force on Reassessing the Inclusion of Race in Diagnosing Kidney Disease, JASN 2020). The CKD-EPI equation should not be used for patients with unstable renal function and has not been validated in children and those over 70. Current interpretive data was last reviewed 2021. Blood 07/14/2023 12:3 9 AM SHOE FITTER 07/14/2023 12:44 AM SHOE FITTER us Tiki Taylor MD LAB BLOOD ORDERABLES Fin al Result [facility] ([place]) 1 [facility] Department [place] [address] * Differential, auto (07/14/2023 12:39 AM SHOE FITTER) Neutrophil abs 4.5 1.5 - 6.5 K/cumm [facility] ([place]) Imm gran abs 0.0 0.0 - 0.1 K/cumm [facility] ([place]) Lymphocyte abs 1.7 0.8 - 3.3 K/cumm [facility] ([place]) Monocyte abs 0.4 0.2 - 0.8 K/cumm [facility] ([place]) Eosinophil abs 0.1 0.0 - 0.5 K/cumm [facility] ([place]) Basophil abs 0.0 0.0 - 0.1 K/cumm [facility] ([place]) Neutrophil pct 67.3 % [facility] ([place]) Comment: Interpretive Data Percent cell count reference ranges are not reported, since discordance with absolute values may lead to misinterpretation of CBC data. Current Interpretive Data was last revised on 2017. Imm gran pct 0.1 % [facility] ([place]) Comment: Interpretive Data Percent cell count reference ranges are not reported, since discordance with absolute values may lead to misinterpretation of CBC data. Current Interpretive Data was last revised on 2017. Lymphocyte pct 25.0 % [facility] ([place]) Comment: Interpretive Data Percent cell count reference ranges are not reported, since discordance with absolute values may lead to misinterpretation of CBC data. Current Interpretive Data was last revised on 2017. Monocyte pct 6.6 % [facility] ([place]) Comment: Interpretive Data Percent cell count reference ranges are not reported, since discordance with absolute values may lead to misinterpretation of CBC data. Current Interpretive Data was last revised on 2017. Eosinophil pct 0.9 % [facility] ([place]) Comment: Interpretive Data Percent cell count reference ranges are not reported, since discordance with absolute values may lead to misinterpretation of CBC data. Current Interpretive Data was last revised on 2017. Basophil pct 0.1 % [facility] ([place]) Comment: Interpretive Data Percent cell count reference ranges are not reported, since discordance with absolute values may lead to misinterpretation of CBC data. Current Interpretive Data was last revised on 2017. Blood 07/14/2023 12:3 9 AM SHOE FITTER 07/14/2023 12:44 AM SHOE FITTER Tiki Taylor MD LAB BLOOD ORDERABLES Fin al Result Performing Organization Address [facility] Co de Phone Number [facility] ([place]) 1 [facility] of [employer] [place] [address] * Lipase (07/14/2023 12:39 AM SHOE FITTER) Lipase 22 10 - 99 Units/L [facility] ([place]) Blood (Blood, Venous) 07/14/2023 12:39 AM SHOE FITTER 07/14/2023 12:44 AM SHOE FITTER Tiki Taylor MD LAB BLOOD ORDERABLES Fin al Result Performing Organization Address [facility] Co de Phone Number [facility] ([place]) 1 [facility] of [employer] [place] [address] * Comprehensive metabolic panel (07/14/2023 12:39 AM SHOE FITTER) Sodium 138 135 - 145 mmol/L [facility] ([place]) Potassium, pl 3.7 3.3 - 4.9 mmol/L [facility] ([place]) Chloride 104 97 - 110 mmol/L [facility] ([place]) CO2 23 22 - 32 mmol/L [facility] ([place]) Anion gap 11 2 - 15 mmol/L [facility] ([place]) BUN 8 6 - 25 mg/dL [facility] ([place]) Creatinine 0.85 0.60 - 1.10 mg/dL [facility] ([place]) Glucose 92 70 - 199 mg/dL [facility] ([place]) Comment: Interpretive Data Fasting glucose >/= 126 mg/dl is diagnostic for diabetes. ?? Fasting is defined as no caloric intake for at least 8 hours. Fasting glucose between 100 mg/dl to 125 mg/dl is diagnostic of prediabetes. In a patient with classic symptoms of hyperglycemia or hyperglycemic crisis, a random glucose >/= 200 mg/dl is diagnostic for diabetes. In the absence of unequivocal hyperglycemia, results should be confirmed by repeat testing. The classification and Diagnosis of Diabetes Diabetes Care 2021; 46: S19-S40. Current interpretive data was last revised 2022. Calcium 9.1 8.5 - 10.3 mg/dL [facility] ([place]) Bilirubin, total 0.6 0.1 - 1.2 mg/dL [facility] ([place]) Protein, pl 7.1 6.5 - 8.5 g/dL [facility] ([place]) Albumin 4.3 3.5 - 5.0 g/dL [facility] ([place]) Alk phos 50 40 - 130 Units/L [facility] ([place]) ALT 14 7 - 45 Units/L [facility] ([place]) AST 16 10 - 45 Units/L [facility] ([place]) Blood 07/14/2023 12:3 9 AM SHOE FITTER 07/14/2023 12:44 AM SHOE FITTER us Tiki Taylor MD LAB BLOOD ORDERABLES Fin al Result [facility] ([place]) 1 [facility] Department [place] [address] * CBC with auto differential (07/14/2023 12:39 AM SHOE FITTER) WBC 6.7 3.8 - 9.9 K/cumm [facility] ([place]) Hgb 12.6 11.9 - 15.5 g/dL [facility] ([place]) Hct 37.0 35.6 - 45.5 % [facility] ([place]) Plt 159 150 - 400 K/cumm [facility] ([place]) MPV 10.7 9.1 - 12.3 fL [facility] ([place]) RBC 4.23 3.90 - 5.20 M/cumm [facility] ([place]) MCV 87.5 81.3 - 96.4 fL [facility] ([place]) MCH 29.8 27.1 - 33.3 pg [facility] ([place]) MCHC 34.1 32.3 - 35.7 g/dL [facility] ([place]) RDW CV 12.9 11.1 - 14.9 % [facility] ([place]) RDW SD 41.0 35.7 - 48.1 fL [facility] ([place]) NRBC abs 0.00 0.00 - 0.01 K/cumm [facility] ([place]) Blood (Blood, Venous) 07/14/2023 12:39 AM SHOE FITTER 07/14/2023 12:44 AM SHOE FITTER us Tiki Taylor MD LAB BLOOD ORDERABLES Fin al Result [facility] ([place]) 1 [facility] Department [place] [address] documented in this encounter Visit Diagnoses Diagnosis Abdominal pain- Primary Abdominal pain, unspecified site documented in this encounter Administered Medications Inactive Administered Medications - up to 3 most recent administrations Medication Order MAR Action Action Date Dose Rate Site al & mag hydroxide simethicone-lidocaine oral suspension mixture 40 mL, oral, Once, On Wed07/14/23 at 0404, For 1 dose Given 07/14/2023 4:10 AM SHOE FITTER 40 mL ondansetron ODT (ZOFRAN-ODT) disintegrating tablet 4 mg 4 mg, oral, Once, On Wed07/14/23 at 0406, For 1 dose, Indications: Nausea, VomitingIndications:Nausea,Vomiting Given 07/14/2023 4:10 AM SHOE FITTER 4 mg documented in this encounter Active and Recently Administered Medications Times are shown in SHOE FITTER. Scheduled Medication Order 07/12/2023 07/13/2023 07/14/2023 al & mag hydroxide simethicone-lidocaine oral suspension mixture (COMPLETED) 40 mL, oral, Once, On Wed07/14/23 at 0404, For 1 dose 0410 (Given - Provid er: Agustín Steele RN) ondansetron ODT (ZOFRAN-ODT) disintegrating tablet 4 mg (COMPLETED) 4 mg, oral, Once, On Wed07/14/23 at 0406, For 1 dose, Indications: Nausea, Vomiting 0410 (Given - Provid er: Agustín Steele RN) documented in this encounter Care Teams Structural Worker Relationship Specialty Start Date End Date Deborah Collazo MD PCP - General 06/24/16 documented as of this encounter
--- OUTSIDE RECORDS SUMMARY | 2024-05-06 13:47 | XMS_ITS | Clinical Summary ---
Author Organization [facility] ospital Address [address] [place] [address] Care Team Providers Care Search Engine Marketing Specialist Name Role Phone Deborah Collazo MD Primary Care Provider [phone] Allergies No known active allergies Medications famotidine (PEPCID) 40 mg tablet Take 1 tablet (40 mg total) by mouth nightly for 14 days Take 40 mg by mouth before going to sleep for 2 weeks. After that , take 1 tablet orally once daily as needed for heartburn or indigestion 30 tablet 07/14/19 24 Active ondansetron ODT (ZOFRAN-ODT) 4 mg disintegrating tablet Take 1-2 tablets (4-8 mg total) by mouth every 8 (eight) hours as needed for nausea or vomiting 20 tablet 07/14/19 24 Active Active Problems Problem Noted Date Diagnosed Date Vomiting 05/07/2017 Epigastric pain 05/07/2017 Pes planus 04/07/2017 Pain of foot 04/07/2017 Retained orthopedic hardware 02/03/2017 Tibialis posterior tendinitis 12/09/2016 Unspecified fracture of shaf t of right fibula, initial encounter for closed fracture 03/27/2016 Fracture of fibula 03/25/2016 Well child visit 03/24/2016 Immunizations Name Administration Dates Next Due DTaP 02/01/2003,2002,2002 DTaP 5 Pertussis 12/03/2007,09/27/2003 HPV, Quadrivalent 11/03/2012 Hep A, Pediatric 10/23/2007,12/29/2006 Hep B, Adolescent or Pediatric 07/05/2003,2002,2002 HiB 07/05/2003,2002,2002 Hib (PRP-T) 09/27/2003 IPV 12/03/2007, 4,2002,08/29 Influenza, Quadrivalent, Spl it, Preservative Free, Intramuscular 02/07/2019,03/09/2018,02/16/2017,04/23,02/05/2015,02/06/2014 Influenza, Split 02/20/2009 Influenza, Trivalent, Preser vative Free, Intramuscular 04/21/2012 MMR 12/03/2007,09/27/2003 Meningococcal B, Recombinant (Trumenba) 01/03/2020 Meningococcal Conjugate (Menveo) 07/03/2013 Meningococcal MCV4P (Menactra) 01/03/2020 Pneumococcal Conjugate 7-Valent 07/05/19 04,02/01/2003,2002,08/29 Tdap 07/03/2013 Varicella 12/03/2007,03/12/2004 Family History Medical History Relation Name Comments Diabetes Mother Family history of diabetes mellitus - (Added by TW Conv) Relation Name Status Comments Mother Social History Tobacco Use Types Packs/Day Years [...] on file Legal Sex Female 8:57 AM CUSTOMER ASSOCIATE Gender Identity Not on file Sexual Orientation Not on file Obstetrics History Last Filed Vital Signs Vital Sign Reading Time Taken Comments Blood Pressure 110/62 07/14/2023 4:30 AM CUSTOMER ASSOCIATE Pulse 54 07/14/2023 4:30 AM CUSTOMER ASSOCIATE Temperature 36.3 ??C (97.3 ??F) 07/14/2023 4:30 AM CS T Respiratory Rate 16 07/14/2023 4:30 AM CUSTOMER ASSOCIATE Oxygen Saturation 99% 07/14/2023 4:30 AM CUSTOMER ASSOCIATE Inhaled Oxygen Concentration - - Weight 86.2 kg (190 lb) 07/14/2023 12:32 AM CUSTOMER ASSOCIATE Height 165.1 cm (5' 5 ) 07/14/2023 12:32 AM CUSTOMER ASSOCIATE Body Mass Index 31.62 07/14/2023 12:32 AM CUSTOMER ASSOCIATE Plan of Treatment Health Maintenance Due Date Last Done Comments Cervical Cancer Screening 2002 Depression Screening 2002 Hepatitis C Screening 2002 HPV Vaccines (2 - 2-dose series) 05/05/2013 11/04/19 13 Regular Well Visit/Exam 18-64 2020 Meningococcal B Vaccine (2 o f 2 - Risk Trumenba 2-dose series) 07/05/2020 01/03/2020 DTaP/Tdap/Td Vaccine (7 - Td or Tdap) 07/03/2023 07/03/2013, 12/03/2007, 09/27/2003, Additional history exists Influenza Vaccine (#1) 2024 9, 03/09/2018, 02/16/2017, Additional history exists Pneumococcal vaccine <65 Completed 004, 02/01/2003, 2002, Additional history exists Varicella Vaccines Completed 12/03/2007, 03/12/2004 Meningococcal Vaccine Completed 01/03/2020, 014 Insurance [facility] CHOICE PLUS [facility] OOS [facility] CHOICE PLUS IDPA [facility] CHOICE PLUS IDPA Care Teams Search Engine Marketing Specialist Relationship Specialty Start Date End Date Deborah Collazo MD PCP - General 06/24/16
--- OUTSIDE RECORDS SUMMARY | 2024-05-06 13:47 | XMS_ITS | Clinical Summary ---
Author Organization [facility] Address [address] [place] [address] Care Team Providers Care Lead Process Engineer Name Role Phone Deborah Collazo MD Primary Care Provider [phone] Source Comments [facility],non-owned Affiliates and Associated Physician Practices is amultiple site organization consisting of ambulatory clinics and hospital sitesin [place], [place], [place] and [place]. This disclosure is being madepursuant to the Care Everywhere program and may not contain all information available regarding this patient. Last updated 18.[facility] Phantom Social History Tobacco Use Types Packs/Day Years [...] age to complete this topic Care Teams Lead Process Engineer Relationship Specialty Start Date End Date Deborah Collazo MD [address] [place] [id number] PCP - General Pediatrics 05/31/20
--- OUTSIDE RECORDS SUMMARY | 2024-05-06 13:47 | XMS_ITS | Referral Summary ---
Author Organization [facility] ospital Address [address] [place] [address] Care Team Providers Care Home Care Assistant Name Role Phone Deborah Collazo MD Primary Care Provider [phone] Allergies No known active allergies Medications famotidine [...] 7-Valent 07/05/19 04,02/01/2003,2002,08/29 Tdap 07/03/2013 Varicella 12/03/2007,03/12/2004 Social History Tobacco Use Types Packs/Day Years [...] on file Legal Sex Female 8:57 AM CREDIT DEPARTMENT MANAGER Gender Identity Not on file Sexual Orientation Not on file Last Filed Vital Signs Vital Sign Reading Time Taken Comments Blood Pressure 110/62 07/14/2023 4:30 AM CREDIT DEPARTMENT MANAGER Pulse 54 07/14/2023 4:30 AM CREDIT DEPARTMENT MANAGER Temperature 36.3 ??C (97.3 ??F) 07/14/2023 4:30 AM CS T Respiratory Rate 16 07/14/2023 4:30 AM CREDIT DEPARTMENT MANAGER Oxygen Saturation 99% 07/14/2023 4:30 AM CREDIT DEPARTMENT MANAGER Inhaled Oxygen Concentration - - Weight 86.2 kg (190 lb) 07/14/2023 12:32 AM CREDIT DEPARTMENT MANAGER Height 165.1 cm (5' 5 ) 07/14/2023 12:32 AM CREDIT DEPARTMENT MANAGER Body Mass Index 31.62 07/14/2023 12:32 AM CREDIT DEPARTMENT MANAGER Plan of Treatment Not on file Insurance [address] OOS [facility] [address] [facility] CHOICE PLUS IDPA [facility] CHOICE PLUS IDPA Care Teams Home Care Assistant Relationship Specialty Start Date End Date Deborah Collazo MD PCP - General 06/24/16
--- OUTSIDE RECORDS SUMMARY | 2024-05-06 13:48 | XMS_ITS | Encounter Summary ---
Author Organization [facility] Healthcare Address [address] [place] [address] Care Team Providers Care Telephoto Installer Name Role Phone Deborah Collazo MD Primary Care Provider [phone] Encounter Details Date Type Department Care Team (Late st Contact Info) Description 06/24/2016 10:21 AM FINISHING AREA OPERATOR - 06/24/2016 11:59 PM FINISHING AREA OPERATOR Hospital Encounter [facility] [phone] Rick Lima MD [address] [address] Discharge Disposition: Discharge to home or self care Social History Tobacco Use Types Packs/Day Years Used Date Smoking Tobacco: Never Comments Unknown Sex and Gender Information Value Date Recorded Sex Assigned at Not on file Legal Sex Female 8:57 AM FINISHING AREA OPERATOR Gender Identity Not on file Sexual Orientation Not on file documented as of this encounter Discharge Disposition Disposition Code Departure Means Destination Discharge to home or self care documented in this encounter Plan of Treatment Not on file documented as of this encounter Visit Diagnoses Not on filedocumented in this encounter Care Teams Telephoto Installer Relationship Specialty Start Date End Date Deborah Collazo MD PCP - General 06/24/16 documented as of this encounter
--- OUTSIDE RECORDS SUMMARY | 2024-05-06 13:48 | XMS_ITS | Encounter Summary ---
Author Organization [facility] Healthcare Address [address] [place] [address] Care Team Providers Care Extension Clerk Name Role Phone Deborah Collazo MD Primary Care Provider [phone] Encounter Details Date Type Department Care Team (Late st Contact Info) Description 05/05/2017 11:08 AM CERTIFED REFRIGERATION OPERATOR - 05/05/2017 5:00 PM CERTIFED REFRIGERATION OPERATOR Emergency [facility] [place] [address] Noris Hernandez MD [address] [address] Ronna Matias MD [address] [address] Discharge Disposition: Discharge to home or self care Social History Tobacco Use Types Packs/Day Years Used Date Smoking Tobacco: Never Comments Unknown Sex and Gender Information Value Date Recorded Sex Assigned at Not on file Legal Sex Female 8:57 AM CERTIFED REFRIGERATION OPERATOR Gender Identity Not on file Sexual Orientation Not on file documented as of this encounter Last Filed Vital Signs Vital Sign Reading Time Taken Comments Blood Pressure - - Pulse - - Temperature - - Respiratory Rate - - Oxygen Saturation - - Inhaled Oxygen Concentration - - Weight 92.6 kg (204 lb 2.3 oz) 05/05/2017 2:11 P M CERTIFED REFRIGERATION OPERATOR Height - - Body Mass Index - - documented in this encounter Discharge Disposition Disposition Code Departure Means Destination Discharge to home or self care documented in this encounter Plan of Treatment Not on file documented as of this encounter Procedures Procedure Name Priority Date/Time Associated Diagnosis Comments US GALLBLADDER Routine 05/05/2017 7:33 PM CERTIFED REFRIGERATION OPERATOR GLUCOSE POC Routine 05/05/2017 1:40 PM CERTIFED REFRIGERATION OPERATOR HCG, URINE, QUALITATIVE STAT 05/05/2017 12:48 PM CERTIFED REFRIGERATION OPERATOR URINALYSIS, MICROSCOPIC ONLY STAT 05/05/2017 12:48 PM CERTIFED REFRIGERATION OPERATOR DISCHARGE LABORATORY CUMULATIVE REPORT 05/05/2017 12:00 AM CERTIFED REFRIGERATION OPERATOR documented in this encounter Results * US Gallbladder (05/05/2017 7:33 PM CERTIFED REFRIGERATION OPERATOR) Anatomical Region Laterality Modality Abdomen N/A Ultrasound 05/05/2017 7:33 PM CERTIFED REFRIGERATION OPERATOR Narrative 05/05/2017 7:38 PM CERTIFED REFRIGERATION OPERATOR HENRY COY M.D. FINAL REPORT ACC# ??Date Time ??Exam [id number] May 05, 2017 13:33:00 [id number] SONO GALLBLADDER EXAMINATION: ??[id number] SONO GALLBLADDER HISTORY: RUQ pain: RUQ pain. COMPARISON: None. The urinary tract infection. ??Outside imaging done earlier. FINDINGS: The borders of the pancreas was imaged and this appeared normal. ??The gallbladder is well filled there is no thickening of the wall. ??There is no gallstones. ??The common bile duct measures 0.26 cm. IMPRESSION: ??Normal appearing gallbladder. ??The common bile duct size is also normal Electronically signed by: Henry Coy M.D. Requested By: GE EDWARDS M.D. Dictated By: ?? HENRY COY M.D. ??on May 05 2017 ??1:36P This document has been electronically signed by: HNERY COY M.D. on May 05 2017 ??1:36P HENRY COY M.D. FINAL REPORT Attending: ??MARY, ??NORIS Requesting: ??GRACE, ??GE Requesting Fax: ?? Attending Fax: ?? Attending ID: ??[id number] Requesting ID: ??[id number] Report To 1 ID: ??[id number] ? Report To 1 Name: ??, ?? Report To 1 FAX: ?? NextGen Order #: ?? Procedure Note Miscellaneous, Not In File - 05/05/2017 HENRY COY M.D. FINAL REPORT ACC# Date Time Exam [id number] May 05, 2017 13:33:00 [id number] SONO GALLBLADDER EXAMINATION: [id number] SONO GALLBLADDER HISTORY: RUQ pain: RUQ pain. COMPARISON: None. The urinary tract infection. Outside imaging done earlier. FINDINGS: The borders of the pancreas was imaged and this appeared normal. The gallbladder is well filled there is no thickening of the wall. There is no gallstones. The common bile duct measures 0.26 cm. IMPRESSION: Normal appearing gallbladder. The common bile duct size is also normal Electronically signed by: Henry Coy M.D. Requested By: GE EDWARDS M.D. Dictated By: HENRY COY M.D. on May 05 2017 1:36P This document has been electronically signed by: HENRY COY M.D. on May 05 2017 1:36P HENRY COY M.D. FINAL REPORT Attending: NORIS HERNANDEZ Requesting: GE EDWARDS Requesting Fax: Attending Fax: Attending ID: [id number] Requesting ID: [id number] Report To 1 ID: [id number] Report To 1 Name: , Report To 1 FAX: NextGen Order #: Ge Edwards MD [facility] US PROCEDURES Final Result * Glucose POC (05/05/2017 1:40 PM CERTIFED REFRIGERATION OPERATOR) Glucose, POC 87 70 - 199 mg/dL [facility] Blood specimen (specimen) 05/05/2017 1:40 PM CERTIFED REFRIGERATION OPERATOR 05/05/2017 1:40 PM CERTIFED REFRIGERATION OPERATOR Narrative [facility] - 05/05/2017 1:45 PM CERTIFED REFRIGERATION OPERATOR us Noris Hernandez MD POINT OF CARE TEST ORDERABLE S Final Result [facility] [place] [address] [phone] * Urinalysis, microscopic only (05/05/2017 12:48 PM CERTIFED REFRIGERATION OPERATOR) WBC, ur < 5/HPF None Seen [facility] RBC, ur < 5/HPF None Seen [facility] Epithelial cells, renal, ur None Seen None Seen [facility] Epithelial cells, squamous, ur < 5/HPF [facility] Mucous, ur Trace [facility] Urine 05/05/2017 12:4 8 PM CERTIFED REFRIGERATION OPERATOR 05/05/2017 12:53 PM CERTIFED REFRIGERATION OPERATOR Narrative [facility] - 05/05/2017 1:16 PM CERTIFED REFRIGERATION OPERATOR Result [facility] Ronna Matias MD LAB URINE ORDERABLES Final Result Performing Organization Address [facility] [place] [place] [address] * HCG, urine, qualitative (05/05/2017 12:48 PM CERTIFED REFRIGERATION OPERATOR) HCG, ur Negative Negative [facility] Urine 05/05/2017 12:4 8 PM CERTIFED REFRIGERATION OPERATOR 05/05/2017 12:53 PM CERTIFED REFRIGERATION OPERATOR Narrative [facility] - 05/05/2017 1:04 PM CERTIFED REFRIGERATION OPERATOR Result [facility] Ronna Matias MD LAB URINE ORDERABLES Final Result Performing Organization Address City/[facility]/[place] [address] * DISCHARGE LABORATORY CUMULATIVE REPORT (05/05/2017 12:00 AM CERTIFED REFRIGERATION OPERATOR) Narrative 05/05/2017 12:00 AM CERTIFED REFRIGERATION OPERATOR Ordered by an unspecified provider. Result [facility] Brad Morton MD LAB BLOOD ORDERABLES Pratibha l Result documented in this encounter Visit Diagnoses Not on filedocumented in this encounter Care Teams Extension Clerk Relationship Specialty Start Date End Date Deborah Collazo MD PCP - General 06/24/16 documented as of this encounter
--- OUTSIDE RECORDS SUMMARY | 2024-05-06 13:48 | XMS_ITS | Encounter Summary ---
Author Organization [facility] Healthcare Address [address] [place] [address] Care Team Providers Care Editor News Name Role Phone Deborah Collazo MD Primary Care Provider [phone] Encounter Details Date Type Department Care Team (Late st Contact Info) Description 12/09/2016 12:36 PM CDT - 12/09/2016 11:59 PM CDT Hospital Encounter [facility] [phone] Rick Lima MD [address] [address] Discharge Disposition: Discharge to home or self care Social History Tobacco Use Types Packs/Day Years Used Date Smoking Tobacco: Never Comments Unknown Sex and Gender Information Value Date Recorded Sex Assigned at Not on file Legal Sex Female 8:57 AM TRIPLE AIR VALVE TESTER Gender Identity Not on file Sexual Orientation Not on file documented as of this encounter Discharge Disposition Disposition Code Departure Means Destination Discharge to home or self care documented in this encounter Plan of Treatment Not on file documented as of this encounter Visit Diagnoses Not on filedocumented in this encounter Care Teams Editor News Relationship Specialty Start Date End Date Deborah Collazo MD PCP - General 06/24/16 documented as of this encounter
--- OUTSIDE RECORDS SUMMARY | 2024-05-06 13:48 | XMS_ITS | Encounter Summary ---
Author Organization [facility] Healthcare Address [address] [place] [address] Care Team Providers Care Senior Benefits Manager Name Role Phone Deborah Collazo MD Primary Care Provider [phone] Encounter Details Date Type Department Care Team (Late st Contact Info) Description 12/09/2016 11:58 AM CDT - 12/09/2016 11:59 PM CDT Hospital Encounter [facility] [phone] Scott Lima MD [address] [address] Discharge Disposition: Discharge to home or self care Social History Tobacco Use Types Packs/Day Years Used Date Smoking Tobacco: Never Comments Unknown Sex and Gender Information Value Date Recorded Sex Assigned at Not on file Legal Sex Female 8:57 AM LEAD NURSE Gender Identity Not on file Sexual Orientation Not on file documented as of this encounter Discharge Disposition Disposition Code Departure Means Destination Discharge to home or self care documented in this encounter Plan of Treatment Not on file documented as of this encounter Procedures Procedure Name Priority Date/Time Associated Diagnosis Comments XR ANKLE 3+ VW Routine 12/09/2016 5:05 PM CDT documented in this encounter Results * XR Ankle 3+ Vw (12/09/2016 5:05 PM CDT) Anatomical Region Laterality Modality N/A Radiographic Opal ging 12/09/2016 5:05 PM CDT Narrative 12/09/2016 5:05 PM CDT MARIE ANDRE, FINAL REPORT ACC# ??Date Time ??Exam [id number] Dec 09, 2016 12:05:00 [id number] ANKLE 3 VIEWS UNILATERAL L EXAMINATION: ?Left ankle 3 views HISTORY: ??Left ankle open reduction-internal fixation, increasing pain. FINDINGS: ?? Compared with 09/23/2016. Redemonstrated is a healed spiral fracture of the distal fibula stabilized with a lateral plate and screws and 2 separate interfragmentary screws, unchanged in alignment. FiberWire fixation of the distal tibiofibular syndesmosis is also again noted. There is no evidence of a hardware complication. The ankle mortise is symmetric and the talar dome is smooth in contour. There is no evidence of a tibiotalar intra-articular body. No acute fracture is seen. IMPRESSION: ?? Healed internally-fixed left distal fibula fracture and syndesmosis injury, unchanged in alignment. No evidence of an acute osseous abnormality. Requested By: SCOTT LIMA M.D. Dictated By: ?? MARIE ANDRE, ?? on Dec ??2016 ??1:06P This document has been electronically signed by: MARIE ANDRE, ??on Dec ??2016 ??1:06P MARIE ANDRE, FINAL REPORT Attending: ??JAIMEE, ??SCOTT Requesting: ??JAIMEE, ??SCOTT Requesting Fax: ?? Attending Fax: ?? Attending ID: ??[id number] Requesting ID: ??[id number] Report To 1 ID: ??[id number] ? Report To 1 Name: ??, ?? Report To 1 FAX: ?? NextGen Order #: ?? Procedure Note Miscellaneous, Not In File - 03/03/2017 MARIE ANDRE, FINAL REPORT ACC# Date Time Exam [id number] Dec 09, 2016 12:05:00 [id number] ANKLE 3 VIEWS UNILATERAL L EXAMINATION: Left ankle 3 views HISTORY: Left ankle open reduction-internal fixation, increasing pain. FINDINGS: Compared with 09/23/2016. Redemonstrated is a healed spiral fracture of the distal fibula stabilized with a lateral plate and screws and 2 separate interfragmentary screws, unchanged in alignment. FiberWire fixation of the distal tibiofibular syndesmosis is also again noted. There is no evidence of a hardware complication. The ankle mortise is symmetric and the talar dome is smooth in contour. There is no evidence of a tibiotalar intra-articular body. No acute fracture is seen. IMPRESSION: Healed internally-fixed left distal fibula fracture and syndesmosis injury, unchanged in alignment. No evidence of an acute osseous abnormality. Requested By: SCOTT LIMA M.D. Dictated By: MARIE ANDRE on Dec 09 2016 1:06P This document has been electronically signed by: MARIE ANDRE, on Dec 09 2016 1:06P MARIE ANDRE, FINAL REPORT Attending: SCOTT LIMA Requesting: SCOTT LIMA Requesting Fax: Attending Fax: Attending ID: [id number] Requesting ID: [id number] Report To 1 ID: [id number] Report To 1 Name: , Report To 1 FAX: NextGen Order #: Scott Lima MD IMG XR PROCEDURES Edite d Result - Final documented in this encounter Visit Diagnoses Not on filedocumented in this encounter Care Teams Senior Benefits Manager Relationship Specialty Start Date End Date Deborah Collazo MD PCP - General 06/24/16 documented as of this encounter
--- OUTSIDE RECORDS SUMMARY | 2024-05-06 13:48 | XMS_ITS | Encounter Summary ---
Author Organization [facility] Facility Care Team Providers Care Grips Name Role Phone Unavailable Primary Care Provider Unavailabl e Encounter Details Date Type Department Care Team (Late st Contact Info) Description 03/25/2016 2:15 PM SYSTEMS PROGRAMMER - 03/25/2016 11:59 PM SYSTEMS PROGRAMMER Hospital Encounter [facility] Scott Lima MD [address] [place] [id number] Closed displaced spiral fracture of shaft of left fibula; Exposure to other specified factors, initial encounter; Engages in activity; Unspecified place or not applicable; External cause status Social History Tobacco Use Types Packs/Day Years Used Date Smoking Tobacco: Never Assessed Comments Unknown Sex and Gender Information Value Date Recorded Sex Assigned at Not on file Legal Sex Female 8:57 AM SYSTEMS PROGRAMMER Gender Identity Not on file Sexual Orientation Not on file documented as of this encounter Plan of Treatment Not on file documented as of this encounter Procedures Procedure Name Priority Date/Time Associated Diagnosis Comments OUTSIDE GENERAL DIAG REFERENCE Routine 03/25/2016 3:10 PM SYSTEMS PROGRAMMER XR ANKLE 2 VW Routine 03/25/2016 2:35 PM SYSTEMS PROGRAMMER XR TIBIA FIBULA 2 VW Routine 03/25/2016 2:35 PM SYSTEMS PROGRAMMER documented in this encounter Results * OUTSIDE GENERAL DIAG REFERENCE (03/25/2016 3:10 PM SYSTEMS PROGRAMMER) Anatomical Region Laterality Modality N/A Radiographic Opal ging 03/25/2016 3:10 PM SYSTEMS PROGRAMMER Narrative 03/25/2016 5:20 PM SYSTEMS PROGRAMMER OUTSIDE IMAGES DELIVERY MERCHANDISER, FINAL REPORT ACC# ??Date Time ??Exam [id number] Mar 25, 2016 15:10:00 [facility] GENERAL REFERENCE VIEWING EXAMINATION: ?Images For Reference Purposes Only IMPRESSION: ?These images have been uploaded for Reference purposes only. ??There will be no separate report generated by a [facility] Radiologist. Requested By: Dictated By: ?? OUTSIDE IMAGES DELIVERY MERCHANDISER, ?? on Mar 25 2016 ??5:20P This document has been electronically signed by: OUTSIDE IMAGES DELIVERY MERCHANDISER, ??on Mar 25 2016 ??5:20P Procedure Note Provider, Historical, - 09/15/2016 OUTSIDE IMAGES DELIVERY MERCHANDISER, FINAL REPORT ACC# Date Time Exam [id number] Mar 25, 2016 15:10:00 [facility] GENERAL REFERENCE VIEWING EXAMINATION: Images For Reference Purposes Only IMPRESSION: These images have been uploaded for Reference purposes only. There will be no separate report generated by a [facility] Radiologist. Requested By: Dictated By: OUTSIDE IMAGES DELIVERY MERCHANDISER, on Mar 25 2016 5:20P This document has been electronically signed by: OUTSIDE IMAGES DELIVERY MERCHANDISER, on Mar 25 2016 5:20P Historical Provider IMG XR PROCEDURES Final R esult * XR Tibia Fibula 2 VW (03/25/2016 2:35 PM SYSTEMS PROGRAMMER) Anatomical Region Laterality Modality N/A Radiographic Opal ging 03/25/2016 2:35 PM SYSTEMS PROGRAMMER Narrative 04/01/2016 8:07 AM SYSTEMS PROGRAMMER MARIE ANDRE, FINAL REPORT ACC# ??Date Time ??Exam [id number] Mar 25, 2016 14:35:00 [id number] TIBIA FIBULA 2 VIEWS UNIL L [id number] Mar 25, 2016 14:35:00 53419 ANKLE 2 VIEWS UNILATERAL L EXAMINATION: ?? Left tibia-fibula 2 views. Left ankle 2 views. HISTORY: ??Left fibula fracture. FINDINGS: ?? No comparison available. There is a minimally displaced spiral fracture through the distal fibula at the level of the tibiotalar joint with associated soft tissue swelling. There is widening of the medial clear space of the ankle mortise on the stress view. The tibia is intact. Bony mineralization is normal. No radiopaque foreign body is identified. IMPRESSION: ?? Minimally displaced spiral fracture through the left distal tibia at the level of the tibiotalar joint. Widening of the ankle mortise medial clear space is consistent with deltoid ligament injury. ADDENDUM by Dr. Marie Andre at 0807 on 04/01/2016: As described in the body of the report, the fracture is through the distal fibula. The impression should read fibula, not tibia. Requested By: SCOTT LIMA M.D. Dictated By: ?? MARIE ANDRE, ?? on Mar 25 2016 ??2:44P This document has been electronically signed by: MARIE ANDRE, ??on Mar 25 2016 ??2:44P Addendum Dictated by: MARIE ANDRE, ??on Apr 01 2016 ??8:08A This Addendum has been electronically signed by: MARIE ANDRE, ??on Apr 01 2016 ??8:07A Procedure Note Provider, MD Brad - 09/15/2016 MARIE ANDRE, FINAL REPORT ACC# Date Time Exam [id number] Mar 25, 2016 14:35:00 [id number] TIBIA FIBULA 2 VIEWS UNIL L [id number] Mar 25, 2016 14:35:00 [id number] ANKLE 2 VIEWS UNILATERAL L EXAMINATION: Left tibia-fibula 2 views. Left ankle 2 views. HISTORY: Left fibula fracture. FINDINGS: No comparison available. There is a minimally displaced spiral fracture through the distal fibula at the level of the tibiotalar joint with associated soft tissue swelling. There is widening of the medial clear space of the ankle mortise on the stress view. The tibia is intact. Bony mineralization is normal. No radiopaque foreign body is identified. IMPRESSION: Minimally displaced spiral fracture through the left distal tibia at the level of the tibiotalar joint. Widening of the ankle mortise medial clear space is consistent with deltoid ligament injury. ADDENDUM by Dr. Marie Andre at 0807 on 04/01/2016: As described in the body of the report, the fracture is through the distal fibula. The impression should read fibula, not tibia. Requested By: SCOTT LIMA M.D. Dictated By: MARIE ANDRE, on Mar 25 2016 2:44P This document has been electronically signed by: MARIE ANDRE, on Mar 25 2016 2:44P Addendum Dictated by: MARIE ANDRE, on Apr 01 2016 8:08A This Addendum has been electronically signed by: MARIE ANDRE, on Apr 01 2016 8:07A us Historical Provider IMG XR PROCEDURES Final R esult * XR Ankle 2 VW (03/25/2016 2:35 PM SYSTEMS PROGRAMMER) Anatomical Region Laterality Modality N/A Radiographic Opal ging 03/25/2016 2:35 PM SYSTEMS PROGRAMMER Narrative 04/01/2016 8:07 AM SYSTEMS PROGRAMMER MARIE ANDRE, FINAL REPORT ACC# ??Date Time ??Exam [id number] Mar 25, 2016 14:35:00 15226 TIBIA FIBULA 2 VIEWS UNIL L [id number] Mar 25, 2016 14:35:00 45582 ANKLE 2 VIEWS UNILATERAL L EXAMINATION: ?? Left tibia-fibula 2 views. Left ankle 2 views. HISTORY: ??Left fibula fracture. FINDINGS: ?? No comparison available. There is a minimally displaced spiral fracture through the distal fibula at the level of the tibiotalar joint with associated soft tissue swelling. There is widening of the medial clear space of the ankle mortise on the stress view. The tibia is intact. Bony mineralization is normal. No radiopaque foreign body is identified. IMPRESSION: ?? Minimally displaced spiral fracture through the left distal tibia at the level of the tibiotalar joint. Widening of the ankle mortise medial clear space is consistent with deltoid ligament injury. ADDENDUM by Dr. Marie Andre at 0807 on 04/01/2016: As described in the body of the report, the fracture is through the distal fibula. The impression should read fibula, not tibia. Requested By: SCOTT LIMA M.D. Dictated By: ?? MARIE ANDRE, ?? on Mar 25 2016 ??2:44P This document has been electronically signed by: MARIE ANDRE, ??on Mar 25 2016 ??2:44P Addendum Dictated by: MARIE ANDRE, ??on Apr 01 2016 ??8:08A This Addendum has been electronically signed by: MARIE ANDRE, ??on Apr 01 2016 ??8:07A Procedure Note Provider, Brad, - 09/15/2016 MARIE ANDRE, FINAL REPORT ACC# Date Time Exam [id number] Mar 25, 2016 14:35:00 [id number] TIBIA FIBULA 2 VIEWS UNIL L [id number] Mar 25, 2016 14:35:00 89506 ANKLE 2 VIEWS UNILATERAL L EXAMINATION: Left tibia-fibula 2 views. Left ankle 2 views. HISTORY: Left fibula fracture. FINDINGS: No comparison available. There is a minimally displaced spiral fracture through the distal fibula at the level of the tibiotalar joint with associated soft tissue swelling. There is widening of the medial clear space of the ankle mortise on the stress view. The tibia is intact. Bony mineralization is normal. No radiopaque foreign body is identified. IMPRESSION: Minimally displaced spiral fracture through the left distal tibia at the level of the tibiotalar joint. Widening of the ankle mortise medial clear space is consistent with deltoid ligament injury. ADDENDUM by Dr. Marie Andre at 0807 on 04/01/2016: As described in the body of the report, the fracture is through the distal fibula. The impression should read fibula, not tibia. Requested By: SCOTT LIMA M.D. Dictated By: MARIE ANDRE, on Mar 25 2016 2:44P This document has been electronically signed by: MARIE ANDRE on Mar 25 2016 2:44P Addendum Dictated by: MARIE ANDRE on Apr 01 2016 8:08A This Addendum has been electronically signed by: MARIE ANDRE on Apr 01 2016 8:07A Historical Provider MD KOWALSKI XR PROCEDURES Final R esult documented in this encounter Visit Diagnoses Diagnosis Closed displaced spiral fracture of shaft of left fibula Exposure to other specified factors, initial encounter Engages in activity Unspecified place or not applicable External cause status documented in this encounter
--- OUTSIDE RECORDS SUMMARY | 2024-05-06 13:48 | XMS_ITS | Encounter Summary ---
Author Organization [facility] Facility Care Team Providers Care Sanitarian Inspector Name Role Phone Deborah Collazo MD Primary Care Provider [phone] Encounter Details Date Type Department Care Team (Latest Contact Info) Description 02/04/2017 Orders Only [facility] CLINCONV Scott Lima MD [address] [place] [phone] Social History Tobacco Use Types Packs/Day Years Used Date Smoking Tobacco: Never Comments Unknown Sex and Gender Information Value Date Recorded Sex Assigned at Not on file Legal Sex Female 8:57 AM MACHINE 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 CLEANER Gender Identity Not on file Sexual Orientation Not on file documented as of this encounter Plan of Treatment Not on file documented as of this encounter Procedures Procedure Name Priority Date/Time Associated Diagnosis Comments XR CONSULT OF OUTSIDE FILMS (PEDS ONLY) Routine 02/04/2017 6:10 PM CDT documented in this encounter Results * XR Interpretation Of Outside Films (02/04/2017 6:10 PM CDT) Anatomical Region Laterality Modality N/A Radiographic Opal ging 02/04/2017 6:10 PM CDT Narrative 02/04/2017 6:10 PM CDT OUTSIDE IMAGES AIRCRAFT REFUELLER, FINAL REPORT ACC# ??Date Time ??Exam [id number] Feb 04, 2017 13:10:00 [facility] BODY MR REFERENCE VIEWING EXAMINATION: ?Images For Reference Purposes Only IMPRESSION: ?These images have been uploaded for Reference purposes only. ??There will be no separate report generated by a [facility] Radiologist. Requested By: SCOTT LIMA ??M.D. ? Dictated By: ?? OUTSIDE IMAGES AIRCRAFT REFUELLER, ?? on Feb 04 2017 ??5:03P This document has been electronically signed by: OUTSIDE IMAGES AIRCRAFT REFUELLER, ??on Feb 04 2017 ??5:03P OUTSIDE IMAGES AIRCRAFT REFUELLER, FINAL REPORT Attending: ??JAIMEE, ??SCOTT Requesting: ??JAIMEE, ??SCOTT Requesting Fax: ?? Attending Fax: ?? Attending ID: ??[id number] Requesting ID: ??[id number] Report To 1 ID: ??EXPLODE ? Report To 1 Name: ??, ?? Report To 1 FAX: ?? NextGen Order #: ?? Procedure Note Miscellaneous, Not In File / Provider, MD Brad - 02/04/2017 OUTSIDE IMAGES AIRCRAFT REFUELLER, FINAL REPORT ACC# Date Time Exam [id number] Feb 04, 2017 13:10:00 [facility] BODY MR REFERENCE VIEWING EXAMINATION: Images For Reference Purposes Only IMPRESSION: These images have been uploaded for Reference purposes only. There will be no separate report generated by a [facility] Radiologist. Requested By: SCOTT LIMA M.D. Dictated By: OUTSIDE IMAGES AIRCRAFT REFUELLER, on Feb 04 2017 5:03P This document has been electronically signed by: OUTSIDE IMAGES AIRCRAFT REFUELLER, on Feb 04 2017 5:03P OUTSIDE IMAGES AIRCRAFT REFUELLER, FINAL REPORT Attending: SCOTT LIMA Requesting: SCOTT LIMA Requesting Fax: Attending Fax: Attending ID: [id number] Requesting ID: [id number] Report To 1 ID: [id number] Report To 1 Name: , Report To 1 FAX: NextGen Order #: Scott Lima MD IMG XR PROCEDURES Final Result documented in this encounter Visit Diagnoses Not on filedocumented in this encounter Care Teams Sanitarian Inspector Relationship Specialty Start Date End Date Deborah Collazo MD PCP - General 06/24/16 documented as of this encounter
--- OUTSIDE RECORDS SUMMARY | 2024-05-06 13:48 | XMS_ITS | Encounter Summary ---
Author Organization [facility] Facility Care Team Providers Care Air Shovel Operator Name Role Phone Unavailable Primary Care Provider Unavailabl e Encounter Details Date Type Department Care Team (Late st Contact Info) Description 04/01/2016 6:31 AM CRTTS - 04/06/2016 6:41 AM CRTTS Hospital Encounter [facility] Rick Dubon MD [address] [place] [id number] Sprain of tibiofibular ligament of left ankle; Unspecified place or not applicable; Fall from skateboard; Activity involving roller skating or skateboarding; Closed displaced fracture of lateral malleolus of left fibula Social History Tobacco Use Types Packs/Day Years Used Date Smoking Tobacco: Never Comments Unknown Sex and Gender Information Value Date Recorded Sex Assigned at Not on file Legal Sex Female 8:57 AM CRTTS Gender Identity Not on file Sexual Orientation Not on file documented as of this encounter Last Filed Vital Signs Vital Sign Reading Time Taken Comments Blood Pressure - - Pulse - - Temperature - - Respiratory Rate - - Oxygen Saturation - - Inhaled Oxygen Concentration - - Weight 81.7 kg (180 lb 0.1 oz) 03/31/2016 7:27 A M CRTTS Height - - Body Mass Index - - documented in this encounter Miscellaneous Notes * Op Note - ProviderBrad MD - 04/01/2016 12:00 AM CST [facility] OPERATIVE REPORT NAME: ADITI GARCIA DATE OF SERVICE: 04/01/2016 DATE OF : 2000 SURGEON: Rick Lima M.D. CO-SURGEON: COOLER SERVICE SUPERVISOR: Dago Pyle M.D. [facility] INDICATIONS FOR SURGERY: The patient is a 15-year-old female with an injury to her left ankle approximately 1 week prior. Stress evaluation demonstrated widening of her ankle mortices indicated for surgical intervention. Risks, benefits, and alternatives, and all complications were discussed with the patient and the family prior to the procedure and they wished to proceed. PREOPERATIVE DIAGNOSIS: Left distal fibular fracture. POSTOPERATIVE DIAGNOSIS: 1. Left distal fibular fracture. 2. Left ankle syndesmotic injury. OPERATIVE PROCEDURE: 1. Left distal fibular open reduction and internal fixation. 2. Open reduction and internal fixation of left ankle syndesmosis with a TightRope. ANESTHESIA: General anesthesia. PROCEDURE: The operative site was marked in the preoperative holding area. The patient received antibiotics within 1 hour of incision. The patient was brought into the operating room and placed supine on the operating room table. All bony prominences and peripheral nerves were adequately padded. General anesthesia was then induced. The left lower extremity was prepped and draped in a standard sterile fashion. A Time Out was called to confirm patient, operative site, and procedure. Tourniquet elevated to 275 mmHg. A 10 cm incision was made overlying the distal fibula, deepened through skin and subcutaneous tissue. A fracture hematoma was encountered. The fracture site was cleansed with a curette and normal saline flushes. We exposed the proximal and distal aspects of the fibula and placed a djbld-rk-bnzzh clamp to reduce the fracture site. We placed distal 2 uvkprwth-jd-vapsewxnu 2.7 mm lag screws. This gave excellent fixation. We contoured a 1/3 tubular 8-hole plate to get 3 screws distally and 3 screws proximally. The distal screws being cortical. These were then placed. We confirmed adequate position on AP and lateral views. This had excellent fixation. We stressed the ankle after completion of the fixation and, as expected, the syndesmosis was unstable. We then through our hole approximately 2 cm above the ankle joint line, passed our guidewire, and overreamed this. A small counterincision was made. We reduced the syndesmosis with a large periarticular reduction clamp with gentle force. We had appropriate slightly posterior to anterior . We then passed the TightRope across. This was confirmed to be adequately seated on the medial cortex. We then sequentially tightened this down and seated well within the plate. Final AP and lateral and mortise radiographs demonstrated excellent alignment. Copious irrigation with normal saline. Standard layered closure with 2-0 Vicryl, 3-0 Monocryl, and Steri-Strips. The patient was placed in a short-leg well-padded splint. She was awakened and transferred to the recovery room in appropriate condition. Estimated blood loss: Minimal. IV fluids: See anesthesia record. Urine output: Not recorded. Sponge and needle counts: Correct x2. Condition on transfer to the PACU: Stable. I, Dr. Rick Lima, was present for all critical portions of the procedure including exposure, fixation, and immediately available for closure. Electronically Authenticated by: Rick Lima MD On 04/06/2016 04:32 PM CRTTS Drea Pate:quan #[id number] #[id number] documented in this encounter Plan of Treatment Not on file documented as of this encounter Procedures Procedure Name Priority Date/Time Associated Diagnosis Comments XR ANKLE 3+ VW Routine 04/01/2016 8:53 AM CRTTS XR ANKLE 2 VW Routine 04/01/2016 8:53 AM CRTTS URINE CHORIONIC GONADOTROPIN (HCG) Routine 04/01/2016 6:57 AM CRTTS DISCHARGE LABORATORY CUMULATIVE REPORT 04/01/2016 documented in this encounter Results * XR Ankle 3+ Vw (04/01/2016 8:53 AM CRTTS) Anatomical Region Laterality Modality N/A Radiographic Opal ging 04/01/2016 8:53 AM CRTTS Narrative 04/01/2016 9:25 AM CRTTS MARIE ANDRE, FINAL REPORT ACC# ??Date Time ??Exam [id number] Apr 01, 2016 08:53:00 [id number] ANKLE 3 VIEWS UNILATERAL L [id number] Apr 01, 2016 08:53:00 [id number] ANKLE 2 VIEWS UNILATERAL R EXAMINATION: ?Left ankle 3 views. Right ankle 2 views. HISTORY: ??Left ankle fracture. FINDINGS: ?? Compared with 03/25/2016. Eight fluoroscopic images of the left ankle are submitted for interpretation demonstrating ongoing internal fixation of a distal fibula fracture with a lateral plate and screws and interfragmentary screws, as well as FiberWire construct fixation of the distal tibiofibular syndesmosis. Two comparison fluoroscopic images of the right ankle are also submitted for interpretation and are normal. IMPRESSION: ?? Fluoroscopic guidance for internal fixation of a left distal fibula fracture and deltoid ligament injury. Requested By: Dictated By: ?? MARIE ANDRE, ?? on Apr 01 2016 ??9:24A This document has been electronically signed by: MARIE ANDRE, ??on Apr 01 2016 ??9:24A Procedure Note Provider, MD Brad - 09/15/2016 MARIE ANDRE, FINAL REPORT ACC# Date Time Exam [id number] Apr 01, 2016 08:53:00 [id number] ANKLE 3 VIEWS UNILATERAL L [id number] Apr 01, 2016 08:53:00 [id number] ANKLE 2 VIEWS UNILATERAL R EXAMINATION: Left ankle 3 views. Right ankle 2 views. HISTORY: Left ankle fracture. FINDINGS: Compared with 03/25/2016. Eight fluoroscopic images of the left ankle are submitted for interpretation demonstrating ongoing internal fixation of a distal fibula fracture with a lateral plate and screws and interfragmentary screws, as well as FiberWire construct fixation of the distal tibiofibular syndesmosis. Two comparison fluoroscopic images of the right ankle are also submitted for interpretation and are normal. IMPRESSION: Fluoroscopic guidance for internal fixation of a left distal fibula fracture and deltoid ligament injury. Requested By: Dictated By: MARIE ANDRE, on Apr 01 2016 9:24A This document has been electronically signed by: MARIE ANDRE on Apr 01 2016 9:24A us Historical Provider MD KOWALSKI XR PROCEDURES Final R esult * XR Ankle 2 VW (04/01/2016 8:53 AM CRTTS) Anatomical Region Laterality Modality N/A Radiographic Opal ging 04/01/2016 8:53 AM CRTTS Narrative 04/01/2016 9:25 AM CRTTS MARIE ANDRE, FINAL REPORT ACC# ??Date Time ??Exam [id number] Apr 01, 2016 08:53:00 [id number] ANKLE 3 VIEWS UNILATERAL L [id number] Apr 01, 2016 08:53:00 30276 ANKLE 2 VIEWS UNILATERAL R EXAMINATION: ?Left ankle 3 views. Right ankle 2 views. HISTORY: ??Left ankle fracture. FINDINGS: ?? Compared with 03/25/2016. Eight fluoroscopic images of the left ankle are submitted for interpretation demonstrating ongoing internal fixation of a distal fibula fracture with a lateral plate and screws and interfragmentary screws, as well as FiberWire construct fixation of the distal tibiofibular syndesmosis. Two comparison fluoroscopic images of the right ankle are also submitted for interpretation and are normal. IMPRESSION: ?? Fluoroscopic guidance for internal fixation of a left distal fibula fracture and deltoid ligament injury. Requested By: Dictated By: ?? MARIE ANDRE, ?? on Apr 01 2016 ??9:24A This document has been electronically signed by: MARIE ANDRE, ??on Apr 01 2016 ??9:24A Procedure Note Provider, Brad, - 09/15/2016 MARIE ANDRE, FINAL REPORT ACC# Date Time Exam [id number] Apr 01, 2016 08:53:00 [id number] ANKLE 3 VIEWS UNILATERAL L [id number] Apr 01, 2016 08:53:00 [id number] ANKLE 2 VIEWS UNILATERAL R EXAMINATION: Left ankle 3 views. Right ankle 2 views. HISTORY: Left ankle fracture. FINDINGS: Compared with 03/25/2016. Eight fluoroscopic images of the left ankle are submitted for interpretation demonstrating ongoing internal fixation of a distal fibula fracture with a lateral plate and screws and interfragmentary screws, as well as FiberWire construct fixation of the distal tibiofibular syndesmosis. Two comparison fluoroscopic images of the right ankle are also submitted for interpretation and are normal. IMPRESSION: Fluoroscopic guidance for internal fixation of a left distal fibula fracture and deltoid ligament injury. Requested By: Dictated By: MARIE ANDRE on Apr 01 2016 9:24A This document has been electronically signed by: MARIE ANDRE, on Apr 01 2016 9:24A Historical Provider IMG XR PROCEDURES Final R esult * Urine chorionic gonadotropin (HCG) (04/01/2016 6:57 AM CRTTS) HCG, ur Negative Negative CDR HISTOR ICAL RESULTS Urine 04/01/2016 6:57 AM CRTTS Historical Provider LAB BLOOD ORDERABLES Pratibha l Result CDR HISTORICAL RESULTS * DISCHARGE LABORATORY CUMULATIVE REPORT (04/01/2016) Narrative 04/01/2016 Ordered by an unspecified provider. Historical Provider LAB BLOOD ORDERABLES Pratibha l Result documented in this encounter Visit Diagnoses Diagnosis Sprain of tibiofibular ligament of left ankle Unspecified place or not applicable Fall from skateboard Activity involving roller skating or skateboarding Closed displaced fracture of lateral malleolus of left fibula documented in this encounter
--- OUTSIDE RECORDS SUMMARY | 2024-05-06 13:48 | XMS_ITS | Encounter Summary ---
Author Organization [facility] Facility Care Team Providers Care Forestry Fire Aide Name Role Phone Unavailable Primary Care Provider Unavailabl e Encounter Details Date Type Department Care Team (Late st Contact Info) Description 04/08/2016 9:16 AM PRODUCER - 04/08/2016 11:59 PM PRODUCER Hospital [facility] Clarence, Scott Mayorga MD [address] [place] [id number] Closed fracture of shaft of left fibula with routine healing; Exposure to other specified factors, subsequent encounter Social History Tobacco Use Types Packs/Day Years Used Date Smoking Tobacco: Never Comments Unknown Sex and Gender Information Value Date Recorded Sex Assigned at Not on file Legal Sex Female 8:57 AM PRODUCER Gender Identity Not on file Sexual Orientation Not on file documented as of this encounter Plan of Treatment Not on file documented as of this encounter Procedures Procedure Name Priority Date/Time Associated Diagnosis Comments XR ANKLE 3+ VW Routine 04/08/2016 9:21 AM PRODUCER documented in this encounter Results * XR Ankle 3+ Vw (04/08/2016 9:21 AM PRODUCER) Anatomical Region Laterality Modality N/A Radiographic Opal ging 04/08/2016 9:21 AM PRODUCER Narrative 04/08/2016 9:28 AM PRODUCER MARIE ANDRE, FINAL REPORT ACC# ??Date Time ??Exam [id number] Apr 08, 2016 09:21:00 14385 ANKLE 3 VIEWS UNILATERAL L EXAMINATION: ?Left ankle 3 views HISTORY: ??Left fibula open reduction-internal fixation. FINDINGS: ?? Compared with 04/01/2016. Redemonstrated is a healing spiral distal fibula fracture stabilized with a lateral sideplate and associated screws and interfragmentary screws, in near-anatomic alignment. The distal tibiofibular syndesmosis is stabilized with a FiberWire-button construct. There is no evidence of a hardware complication. The ankle mortise is symmetric. Bony mineralization is normal. There is lateral soft tissue swelling consistent with recent surgery. IMPRESSION: ?? Healing internally-fixated left distal fibula fracture in near-anatomic alignment. No evidence of a hardware complication. Requested By: SCOTT HERMOSILLO M.D. Dictated By: ?? MARIE ANDRE, ?? on Apr 08 2016 ??9:28A This document has been electronically signed by: MARIE ANDRE, ??on Apr 08 2016 ??9:28A Procedure Note Provider, MD Brad - 09/15/2016 MARIE ANDRE, FINAL REPORT ACC# Date Time Exam [id number] Apr 08, 2016 09:21:00 56566 ANKLE 3 VIEWS UNILATERAL L EXAMINATION: Left ankle 3 views HISTORY: Left fibula open reduction-internal fixation. FINDINGS: Compared with 04/01/2016. Redemonstrated is a healing spiral distal fibula fracture stabilized with a lateral sideplate and associated screws and interfragmentary screws, in near-anatomic alignment. The distal tibiofibular syndesmosis is stabilized with a FiberWire-button construct. There is no evidence of a hardware complication. The ankle mortise is symmetric. Bony mineralization is normal. There is lateral soft tissue swelling consistent with recent surgery. IMPRESSION: Healing internally-fixated left distal fibula fracture in near-anatomic alignment. No evidence of a hardware complication. Requested By: SCOTT HERMOSILLO M.D. Dictated By: MARIE ANDRE on Apr 08 2016 9:28A This document has been electronically signed by: saud VILLANUEVA Apr 08 2016 9:28A Historical Provider IMG XR PROCEDURES Final R esult documented in this encounter Visit Diagnoses Diagnosis Closed fracture of shaft of left fibula with routine healing Exposure to other specified factors, subsequent encounter documented in this encounter
--- OUTSIDE RECORDS SUMMARY | 2024-05-06 13:48 | XMS_ITS | Encounter Summary ---
Author Organization [facility] Healthcare Address [address] [place] [address] Care Team Providers Care Riveter Hand Name Role Phone Deborah Collazo MD Primary Care Provider [phone] Encounter Details Date Type Department Care Team (Late st Contact Info) Description 03/10/2017 9:59 AM CDT - 03/10/2017 11:59 PM CDT Hospital Encounter [facility] [phone] Scott Lima MD [address] [address] Discharge Disposition: Discharge to home or self care Social History Tobacco Use Types Packs/Day Years Used Date Smoking Tobacco: Never Comments Unknown Sex and Gender Information Value Date Recorded Sex Assigned at Not on file Legal Sex Female 8:57 AM FLIGHT ENGINEER INSPECTOR Gender Identity Not on file Sexual Orientation Not on file documented as of this encounter Discharge Disposition Disposition Code Departure Means Destination Discharge to home or self care documented in this encounter Plan of Treatment Not on file documented as of this encounter Procedures Procedure Name Priority Date/Time Associated Diagnosis Comments XR ANKLE 3+ VW Routine 03/10/2017 3:04 PM CDT documented in this encounter Results * XR Ankle 3+ Vw (03/10/2017 3:04 PM CDT) Anatomical Region Laterality Modality N/A Radiographic Opal ging 03/10/2017 3:04 PM CDT Narrative 03/10/2017 4:43 PM CDT ELLIS VILLANUEVA M.D. FINAL REPORT The radiology attending physician has personally reviewed this study, and has reviewed and/or edited this written report and agrees with it. ACC# ??Date Time ??Exam [id number] Mar 10, 2017 10:04:00 32968 ANKLE 3 VIEWS UNILATERAL L EXAMINATION: ??LEFT ANKLE 3 VIEWS HISTORY: ??Left distal fibular fracture and syndesmotic injury. FINDINGS: ??3 weightbearing views of the left ankle are submitted for interpretation with comparison to 12/09/2016. The oblique fracture through the distal left fibula is healed in near-anatomic alignment. ??Internal fixation with plate and screws has been removed as has the wire transfixing the syndesmosis. ??The ankle mortise is symmetric, and there is no widening of the syndesmosis. Postoperatively, there is marked soft tissue swelling about the ankle and left lower leg. IMPRESSION: ??1. ??Healed oblique fracture through the distal left fibula with hardware completely removed. 2. ??Removed syndesmosis wire. Electronically signed by: Marie Andre M.D. Requested By: SCOTT LIMA M.D. Dictated By: ?? ELLIS GARCIA M.D. ??on Mar ??2016 11:41A This document has been electronically signed by: MARIE ANDRE, ??on Mar ??2016 11:41A [id number] ELLIS ANDRE M.D. FINAL REPORT The radiology attending physician has personally reviewed this study, and has reviewed and/or edited this written report and agrees with it. Attending: ??JAIMEE, ??SCOTT Requesting: ??JAIMEE, ??SCOTT Requesting Fax: ?? Attending Fax: ?? Attending ID: ??[id number] Requesting ID: ??[id number] Report To 1 ID: ??[id number] ? Report To 1 Name: ??, ?? Report To 1 FAX: ?? NextGen Order #: ?? Procedure Note Miscellaneous, Not In File - 03/10/2017 ELLIS VILLANUEVA M.D. FINAL REPORT The radiology attending physician has personally reviewed this study, and has reviewed and/or edited this written report and agrees with it. ACC# Date Time Exam [id number] Mar 10, 2017 10:04:00 63566 ANKLE 3 VIEWS UNILATERAL L EXAMINATION: LEFT ANKLE 3 VIEWS HISTORY: Left distal fibular fracture and syndesmotic injury. FINDINGS: 3 weightbearing views of the left ankle are submitted for interpretation with comparison to 12/09/2016. The oblique fracture through the distal left fibula is healed in near-anatomic alignment. Internal fixation with plate and screws has been removed as has the wire transfixing the syndesmosis. The ankle mortise is symmetric, and there is no widening of the syndesmosis. Postoperatively, there is marked soft tissue swelling about the ankle and left lower leg. IMPRESSION: 1. Healed oblique fracture through the distal left fibula with hardware completely removed. 2. Removed syndesmosis wire. Electronically signed by: Marie Andre M.D. Requested By: SCOTT LIMA M.D. Dictated By: ELLIS GARCIA M.D. on Mar 10 2017 11:41A This document has been electronically signed by: MARIE ANDRE, on Mar 10 2017 11:41A [id number] ELLIS ANDRE M.D. FINAL REPORT The radiology attending physician has personally reviewed this study, and has reviewed and/or edited this written report and agrees with it. Attending: SCOTT LIMA Requesting: SCOTT LIMA Requesting Fax: Attending Fax: Attending ID: [id number] Requesting ID: [id number] Report To 1 ID: [id number] Report To 1 Name: , Report To 1 FAX: NextGen Order #: Scott Lima MD IMG XR PROCEDURES Final Result documented in this encounter Visit Diagnoses Not on filedocumented in this encounter Care Teams Riveter Hand Relationship Specialty Start Date End Date Deborah Collazo MD PCP - General 06/24/16 documented as of this encounter
--- OUTSIDE RECORDS SUMMARY | 2024-05-06 13:48 | XMS_ITS | Encounter Summary ---
Author Organization [facility] Healthcare Address [address] [place] [address] Care Team Providers Care Industry Consultant Name Role Phone Deborah Collazo MD Primary Care Provider [phone] Encounter Details Date Type Department Care Team (Late st Contact Info) Description 05/07/2017 10:32 AM FINISHER COLD ROLLING - 05/07/2017 11:59 PM FINISHER COLD ROLLING Hospital Encounter [facility] [phone] Andreas Daniels MD [address] [place] [address] Luz Tucker [facility] [address] [place] [address] Discharge Disposition: Discharge to home or self care Social History Tobacco Use Types Packs/Day Years Used Date Smoking Tobacco: Never Comments Unknown Sex and Gender Information Value Date Recorded Sex Assigned at Not on file Legal Sex Female 8:57 AM FINISHER COLD ROLLING Gender Identity Not on file Sexual Orientation Not on file documented as of this encounter Discharge Disposition Disposition Code Departure Means Destination Discharge to home or self care documented in this encounter Plan of Treatment Not on file documented as of this encounter Procedures Procedure Name Priority Date/Time Associated Diagnosis Comments XR ABDOMEN 2 VW Routine 05/07/2017 4:50 PM FINISHER COLD ROLLING documented in this encounter Results * XR Abdomen 2 VW (05/07/2017 4:50 PM FINISHER COLD ROLLING) Anatomical Region Laterality Modality Body N/A Radiographic Opal ging 05/07/2017 4:50 PM FINISHER COLD ROLLING Narrative 05/07/2017 5:01 PM FINISHER COLD ROLLING KARLA CRAWFORD M.D. FINAL REPORT ACC# ??Date Time ??Exam [id number] May 07, 2017 10:50:00 76869 ABD OBS SERIES 2V EXAMINATION: ??01640 ABD OBS SERIES 2V HISTORY: abdominal pain, bilious vomiting. COMPARISON: None. FINDINGS: The bowel gas pattern is normal. ??There is no dilated bowel, pneumatosis, portal venous gas or free intraperitoneal air. ??Stool is seen in the right colon. IMPRESSION: ??Normal. Electronically signed by: Karla Crawford M.D. Requested By: LUZ TUKCER ?? Dictated By: ?? KARLA CRAWFORD M.D. ??on May 07 2017 10:59A This document has been electronically signed by: KARLA CRAWFORD M.D. on May 07 2017 10:59A [id number] CRAWFORD M.D. FINAL REPORT Attending: ??STARLA, ??ANDREAS Requesting: ??ANGEL, ??LUZ Requesting Fax: ?? Attending Fax: ?? Attending ID: ??[id number] Requesting ID: ??[id number] Report To 1 ID: ??[id number] ? Report To 1 Name: ??, ?? Report To 1 FAX: ?? NextGen Order #: ?? Procedure Note Miscellaneous, Not In File - 05/07/2017 KARLA CRAWFORD M.D. FINAL REPORT ACC# Date Time Exam [id number] May 07, 2017 10:50:00 33783 ABD OBS SERIES 2V EXAMINATION: 64936 ABD OBS SERIES 2V HISTORY: abdominal pain, bilious vomiting. COMPARISON: None. FINDINGS: The bowel gas pattern is normal. There is no dilated bowel, pneumatosis, portal venous gas or free intraperitoneal air. Stool is seen in the right colon. IMPRESSION: Normal. Electronically signed by: Karla Crawford M.D. Requested By: LUZ TUCKER Dictated By: KARLA CRAWFORD M.D. on May 07 2017 10:59A This document has been electronically signed by: KARLA CRAWFORD M.D. on May 07 2017 10:59A [id number] CRAWFORD M.D. FINAL REPORT Attending: ANDREAS DANIELS Requesting: LUZ TUCKER Requesting Fax: Attending Fax: Attending ID: [id number] Requesting ID: [id number] Report To 1 ID: [id number] Report To 1 Name: , Report To 1 FAX: NextGen Order #: us Physician No IMG XR PROCEDURES Final Result documented in this encounter Visit Diagnoses Not on filedocumented in this encounter Care Teams Industry Consultant Relationship Specialty Start Date End Date Deborah Collazo MD PCP - General 06/24/16 documented as of this encounter
--- OUTSIDE RECORDS SUMMARY | 2024-05-06 13:48 | XMS_ITS | Encounter Summary ---
Author Organization [facility] Healthcare Address [address] [place] [address] Care Team Providers Care At Risk Specialist Name Role Phone Deborah Collazo MD Primary Care Provider [phone] Encounter Details Date Type Department Care Team (Late st Contact Info) Description 05/08/2017 11:35 AM EDGER SAW OPERATOR - 05/09/2017 2:16 PM EDGER SAW OPERATOR Hospital Encounter [facility] [address] [place] [address] Urvashi Dalton MD 1 [facility] [address] [place] [address] Discharge Disposition: Discharge to home or self care Social History Tobacco Use Types Packs/Day Years Used Date Smoking Tobacco: Never Comments Unknown Sex and Gender Information Value Date Recorded Sex Assigned at Not on file Legal Sex Female 8:57 AM EDGER SAW OPERATOR Gender Identity Not on file Sexual Orientation Not on file documented as of this encounter Last Filed Vital Signs Vital Sign Reading Time Taken Comments Blood Pressure 109/63 05/09/2017 12:11 PM EDGER SAW OPERATOR Pulse 74 05/09/2017 12:11 PM EDGER SAW OPERATOR Temperature - - Respiratory Rate - - Oxygen Saturation 97% 05/09/2017 12: 11 PM EDGER SAW OPERATOR Inhaled Oxygen Concentration - - Weight 91.5 kg (201 lb 11.5 oz) 05/07/2017 1:36 PM EDGER SAW OPERATOR Height 166 cm (5' 5.35 ) 05/07/2017 1:36 PM EDGER SAW OPERATOR Body Mass Index 33.21 05/07/2017 1:36 PM EDGER SAW OPERATOR Body Mass Index Percentile 98.05% 05/07/2017 1:3 6 PM EDGER SAW OPERATOR Growth Chart: CDC (Girls, 2- 20 Years) documented in this encounter Discharge Disposition Disposition Code Departure Means Destination Discharge to home or self care documented in this encounter Plan of Treatment Not on file documented as of this encounter Procedures Procedure Name Priority Date/Time Associated Diagnosis Comments FL UPPER GI SERIES, SINGLE CONTRAST Routine 05/08/2017 8:25 PM EDGER SAW OPERATOR HCG, URINE, QUALITATIVE Timed 05/08/2017 5:34 PM EDGER SAW OPERATOR DIFFERENTIAL AUTO Routine 05/08/2017 10: 31 AM EDGER SAW OPERATOR CBC WITHOUT DIFFERENTIAL Routine 05/08/2017 10:31 AM EDGER SAW OPERATOR LIPASE Routine 05/08/2017 10:31 AM EDGER SAW OPERATOR AMYLASE Routine 05/08/2017 10:31 AM EDGER SAW OPERATOR COMPREHENSIVE METABOLIC PANEL Routine 05/08/2017 10:31 AM EDGER SAW OPERATOR documented in this encounter Results * FL Upper GI Series (05/08/2017 8:25 PM EDGER SAW OPERATOR) Anatomical Region Laterality Modality Body N/A Radiographic Opal ging 05/08/2017 8:25 PM EDGER SAW OPERATOR Narrative 05/09/2017 1:11 PM EDGER SAW OPERATOR KARLA CRAWFORD M.D. BEN OROZCO M.D. FINAL REPORT The radiology attending physician has personally reviewed this study, and has reviewed and/or edited this written report and agrees with it. ACC# ??Date Time ??Exam [id number] May 08, 2017 14:25:00 06600 UGI-SINGLE CONT EXAMINATION: ??19943 UGI-SINGLE CONT HISTORY: ??Bilious emesis abdominal pain. COMPARISON: ??Yesterday's abdominal radiographs. FINDINGS: ??Initial fluoroscopic spot film is unremarkable. The child drank thin barium. There are no abnormal vascular impressions upon the esophagus. There is no evidence of gastric outlet obstruction and the duodenal-jejunal junction is in its normal left upper quadrant location. There is no evidence of gastroesophageal reflux. IMPRESSION: ??Normal exam. ??No explanation for abdominal pain or vomiting. Electronically signed by: Karla Crawford M.D. Requested By: JUDE LOWE M.D. Dictated By: ?? BEN OROZCO M.D. ??on May 08 2017 ??2:27P This document has been electronically signed by: KARLA CRAWFORD M.D. on May 09 2017 ??7:09A [id number] JAMISON M.D. FINAL REPORT The radiology attending physician has personally reviewed this study, and has reviewed and/or edited this written report and agrees with it. Attending: ??KRYSTLE, ??URVASHI Requesting: ??DEMETRIA, ??JUDE Requesting Fax: ?? Attending Fax: ?? Attending ID: ??[id number] Requesting ID: ??[id number] Report To 1 ID: ??[id number] ? Report To 1 Name: ??, ?? Report To 1 FAX: ?? NextGen Order #: ?? Procedure Note Miscellaneous, Not In File - 05/09/2017 KARLA CRAWFORD M.D. BEN OROZCO M.D. FINAL REPORT The radiology attending physician has personally reviewed this study, and has reviewed and/or edited this written report and agrees with it. ACC# Date Time Exam [id number] May 08, 2017 14:25:00 17683 UGI-SINGLE CONT EXAMINATION: 23743 UGI-SINGLE CONT HISTORY: Bilious emesis abdominal pain. COMPARISON: Yesterday's abdominal radiographs. FINDINGS: Initial fluoroscopic spot film is unremarkable. The child drank thin barium. There are no abnormal vascular impressions upon the esophagus. There is no evidence of gastric outlet obstruction and the duodenal-jejunal junction is in its normal left upper quadrant location. There is no evidence of gastroesophageal reflux. IMPRESSION: Normal exam. No explanation for abdominal pain orvomiting. Electronically signed by: Karla Crawford M.D. Requested By: JUDE LOWE M.D. Dictated By: BEN OROZCO M.D. on May 08 2017 2:27P This document has been electronically signed by: KARLA CRAWFORD M.D. on May 09 2017 7:09A [id number] CRAWFORD M.D. BEN OROZCO M.D. FINAL REPORT The radiology attending physician has personally reviewed this study, and has reviewed and/or edited this written report and agrees with it. Attending: URVASHI DALTON Requesting: JUDE LOWE Requesting Fax: Attending Fax: Attending ID: [id number] Requesting ID: [id number] Report To 1 ID: [id number] Report To 1 Name: , Report To 1 FAX: NextGen Order #: us Jude Lowe MD IMG FLUOROSCOPY PROCEDURE S Final Result * HCG, urine, qualitative (05/08/2017 5:34 PM EDGER SAW OPERATOR) Pathologist [facility] [place] HCG, ur Negative Negative [facility] Urine 05/08/2017 5:34 PM EDGER SAW OPERATOR 05/08/2017 5:42 PM EDGER SAW OPERATOR Narrative [facility] - 05/08/2017 5:53 PM EDGER SAW OPERATOR us Maite Morris MD LAB URINE ORDERABLES F inal Result [facility] Department [place] [address] * (ABNORMAL) Comprehensive metabolic panel (05/08/2017 10:31 AM EDGER SAW OPERATOR) Pathologist [facility] [place] Sodium 138 135 - 145 mmol/L [facility] Potassium, pl 3.8 3.3 - 4.9 mmol/L [facility] CO2 21 20 - 30 mmol/L [facility] BUN 8(L) 9 - 18 mg/dL [facility] Glucose 98 70 - 199 mg/dL [facility] Comment: Interpretive Data Fasting glucose >/= 126 [...] classification and Diagnosis of Diabetes Diabetes Care 2017;40 (Suppl. 1):S11. Current interpretive data was last revised 2017. Creatinine 0.78 0.40 - 1.00 mg/dL [facility] Calcium 9.0 8.5 - 10.3 mg/dL [facility] Chloride 107 100 - 114 mmol/L [facility] Albumin 3.9 3.2 - 5.0 g/dL [facility] AST 37 10 - 50 Units/L [facility] ALT 71(H) 10 - 40 Units/L [facility] Alk phos 76(L) 130 - 550 Units/L [facility] Bilirubin, total 0.5 0.1 - 1.2 mg/dL [facility] Protein, pl 6.6 6.5 - 8.5 g/dL [facility] Anion gap 10 2 - 15 mmol/L [facility] Blood specimen (specimen) 05/08/2017 10:31 AM EDGER SAW OPERATOR 05/08/2017 1:16 PM EDGER SAW OPERATOR Narrative [facility] - 05/08/2017 1:28 PM EDGER SAW OPERATOR Alexander Hanna MD LAB BLOOD ORDERABLES Final Result Performing Organization Address [facility] Co de Phone Number [facility] [place] [address] * Amylase (05/08/2017 10:31 AM EDGER SAW OPERATOR) Amylase 57 <=130 Units/L [facility] Blood specimen (specimen) 05/08/2017 10:31 AM EDGER SAW OPERATOR 05/08/2017 1:16 PM EDGER SAW OPERATOR Narrative [facility] - 05/08/2017 1:28 PM EDGER SAW OPERATOR Alexander Hanna MD LAB BLOOD ORDERABLES Final Result Performing Organization Address City/[facility]/ZIP Co de Phone Number [facility] [place] [address] * Lipase (05/08/2017 10:31 AM EDGER SAW OPERATOR) Lipase 34 5 - 50 Units/L [facility] Blood specimen (specimen) 05/08/2017 10:31 AM EDGER SAW OPERATOR 05/08/2017 1:16 PM EDGER SAW OPERATOR Narrative [facility] - 05/08/2017 1:28 PM EDGER SAW OPERATOR Alexander Hanna MD LAB BLOOD ORDERABLES Final Result Performing Organization Address [facility] de Phone Number [facility] [place] [address] * (ABNORMAL) Differential, auto (05/08/2017 10:31 AM EDGER SAW OPERATOR) Neutrophil abs 6.42 1.50 - 9.40 K/cumm [facility] Lymphocyte abs 2.29 1.00 - 7.20 K/cumm [facility] Monocyte abs 0.99 0.10 - 1.70 K/cumm [facility] Eosinophil abs 0.08(L) 0.10 - 1.60 K/cumm [facility] Basophil abs 0.02 0.00 - 0.30 K/cumm [facility] Imm gran abs 0.03 0.00 - 0.20 K/cumm [facility] Neutrophil pct 65.3 % [facility] Lymphocyte pct 23.3 % [facility] Monocyte pct 10.1 % [facility] Eosinophil pct 0.8 % [facility] Basophil pct 0.2 % [facility] Imm gran pct 0.3 % [facility] Blood specimen (specimen) 05/08/2017 10:31 AM EDGER SAW OPERATOR 05/08/2017 10:36 AM EDGER SAW OPERATOR Narrative [facility] - 05/08/2017 10:45 AM EDGER SAW OPERATOR Alexander Hanna MD LAB BLOOD ORDERABLES Final Result Performing Organization Address City/[facility]/ZIP Co de Phone Number [facility] [place] [address] * CBC without differential (05/08/2017 10:31 AM EDGER SAW OPERATOR) WBC 9.83 3.80 - 9.90 K/cumm [facility] RBC 4.62 3.90 - 5.20 M/cumm [facility] Hgb 13.0 11.9 - 15.5 g/dL [facility] Hct 37.8 35.6 - 45.5 % [facility] MCV 81.8 81.3 - 96.4 fL [facility] MCH 28.1 27.1 - 33.3 pg [facility] MCHC 34.4 32.3 - 35.7 g/dL [facility] RDW CV 12.6 11.1 - 14.9 % [facility] RDW SD 37.4 35.7 - 48.1 fL [facility] Plt 227 150 - 400 K/cumm [facility] MPV 10.3 9.1 - 12.3 fL [facility] NRBC abs 0.00 0.00 - 0.01 K/cumm [facility] NRBC 0.0 % [facility] Blood specimen (specimen) 05/08/2017 10:31 AM EDGER SAW OPERATOR 05/08/2017 10:36 AM EDGER SAW OPERATOR Narrative [facility] - 05/08/2017 10:45 AM EDGER SAW OPERATOR Alexander Hanna MD LAB BLOOD ORDERABLES Final Result [facility] Department [place] [address] documented in this encounter Visit Diagnoses Not on filedocumented in this encounter Care Teams At Risk Specialist Relationship Specialty Start Date End Date Deborah Collazo MD PCP - General 06/24/16 documented as of this encounter
--- OUTSIDE RECORDS SUMMARY | 2024-05-06 13:48 | XMS_ITS | Encounter Summary ---
Author Organization [facility] Healthcare Address [address] [place] [address] Care Team Providers Care Auto Driver Name Role Phone Deborah Collazo MD Primary Care Provider [phone] Encounter Details Date Type Department Care Team (Late st Contact Info) Description 09/23/2016 9:10 AM CDT - 09/23/2016 11:59 PM CDT Hospital Encounter [facility] OP INTERIM [phone] Scott Lima MD [address] [address] Discharge Disposition: Discharge to home or self care Social History Tobacco Use Types Packs/Day Years Used Date Smoking Tobacco: Never Comments Unknown Sex and Gender Information Value Date Recorded Sex Assigned at Not on file Legal Sex Female 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 Gender Identity Not on file Sexual Orientation Not on file documented as of this encounter Discharge Disposition Disposition Code Departure Means Destination Discharge to home or self care documented in this encounter Plan of Treatment Not on file documented as of this encounter Procedures Procedure Name Priority Date/Time Associated Diagnosis Comments XR ANKLE 3+ VW Routine 09/23/2016 2:16 PM CDT documented in this encounter Results * XR Ankle 3+ Vw (09/23/2016 2:16 PM CDT) Anatomical Region Laterality Modality N/A Radiographic Opal ging 09/23/2016 2:16 PM CDT Narrative 09/23/2016 2:16 PM CDT KARLA CHRISTIAN M.D. FINAL REPORT ACC# ??Date Time ??Exam [id number] September 23, 2016 09:16:00 [id number] ANKLE 3 VIEWS UNILATERAL L EXAMINATION: ?? Two-view left ankle September 23, 2016. HISTORY: ORIF left ankle fracture. FINDINGS: ??Comparison is made to June 24, 2016. A long sideplate with multiple screws remains in place through the distal fibula. Fibular fracture has healed. The distal tibiofibular syndesmosis is stabilized with a February but can construct. There is no evidence of hardware complication. The mortise is symmetric. There is mild diffuse soft tissue swelling. IMPRESSION: ?? Unchanged distal left tibial and fibular hardware with normal alignment of the ankle. No new abnormality since the prior study. Requested By: SCOTT LIMA M.D. Dictated By: ?? KARLA CHRISTIAN M.D. ??on Sep 23 2016 11:40A This document has been electronically signed by: KARLA CHRISTIAN M.D. on Sep 23 2016 11:40A Procedure Note Miscellaneous, Not In File / Provider, MD Brad - 10/04/2016 KARLA CHRISTIAN M.D. FINAL REPORT ACC# Date Time Exam [id number] September 23, 2016 09:16:00 [id number] ANKLE 3 VIEWS UNILATERAL L EXAMINATION: Two-view left ankle September 23, 2016. HISTORY: ORIF left ankle fracture. FINDINGS: Comparison is made to June 24, 2016. A long sideplate with multiple screws remains in place through the distal fibula. Fibular fracture has healed. The distal tibiofibular syndesmosis is stabilized with a February but can construct. There is no evidence of hardware complication. The mortise is symmetric. There is mild diffuse soft tissue swelling. IMPRESSION: Unchanged distal left tibial and fibular hardware with normal alignment of the ankle. No new abnormality since the prior study. Requested By: SCOTT LIMA M.D. Dictated By: KARLA CHRISTIAN M.D. on Sep 23 2016 11:40A This document has been electronically signed by: KARLA CHRISTIAN M.D. on Sep 23 2016 11:40A us Not In File Miscellaneous IMG XR PROCEDURES Pratibha l Result documented in this encounter Visit Diagnoses Not on filedocumented in this encounter Care Teams Auto Driver Relationship Specialty Start Date End Date Deborah oCllazo MD PCP - General 06/24/16 documented as of this encounter
--- OUTSIDE RECORDS SUMMARY | 2024-05-06 13:48 | XMS_ITS | Encounter Summary ---
Author Organization [facility] Healthcare Address [address] [place] [address] Care Team Providers Care Appliance Service Representative Name Role Phone Deborah Collazo MD Primary Care Provider [phone] Encounter Details Date Type Department Care Team (Late st Contact Info) Description 03/01/2017 10:15 AM CDT - 03/01/2017 2:34 PM CDT Hospital Encounter [facility] INTERIM [phone] Scott Lima MD [address] [place] [id number] Discharge Disposition: Discharge to home or self care Social History Tobacco Use Types Packs/Day Years Used Date Smoking Tobacco: Never Comments Unknown Sex and Gender Information Value Date Recorded Sex Assigned at Not on file Legal 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 Gender Identity Not on file Sexual Orientation Not on file documented as of this encounter Last Filed Vital Signs Vital Sign Reading Time Taken Comments Blood Pressure - - Pulse - - Temperature - - Respiratory Rate - - Oxygen Saturation - - Inhaled Oxygen Concentration - - Weight 96.1 kg (211 lb 13.8 oz) 017 11:36 AM CDT Height - - Body Mass Index - - documented in this encounter Discharge Disposition Disposition Code Departure Means Destination Discharge to home or self care documented in this encounter Miscellaneous Notes * Op Note - ProviderBrad MD - 03/01/2017 12:00 AM CDT [facility] OPERATIVE REPORT NAME: ADITI GARCIA DATE OF SERVICE: 03/01/2017 DATE OF : 2000 SURGEON: Scott Lima M.D. CO-SURGEON: BRAKE LINING CURER: Maurilio Wright M.D. SURGEON Scott Lima MD BRAKE LINING CURER Maurilio Wright MD [facility]. PREOP DIAGNOSIS Painful retained hardware, left ankle. POSTOP DIAGNOSIS Painful retained hardware, left ankle. PROCEDURE Removal of hardware, left ankle. INDICATIONS Patient is a 16-year-old, nearly a year out from her initial injury. She has a lateral plate with syndesmotic fixation. She has evidence of persistent pain with prominence of her hardware. Risks, benefits, alternatives and complications of operative treatment including hardware removal were discussed prior to the procedure and they wished to proceed. Op site marked in the preoperative holding area. Patient received antibiotics within 1 hour of incision. DESCRIPTION OF PROCEDURE The patient brought to the operating room, placed supine on the operating room table. Bony prominences and peripheral nerves adequately padded. General anesthesia was then induced. The tourniquet inflated to 275 mmHg. We incised at the lateral incision, deepened down through skin and subcutaneous tissue. She had extensive scarring around the plate which we released. We then removed the screws without difficulty. The plate was removed. We incised the sutures for the endo-button. We made a 1 cm incision on the medial aspect of the tibia. Similarly to remove the tight rope button. At this point final radiographs demonstrated complete removal. Copiously irrigated with normal saline. We additionally performed a stress view and demonstrated stability of the ankle mortise. Standard layered closure 2-0 Vicryl, 2-0 Monocryl, 3-0 Monocryl. Sterile dressing applied. The patient awakened, transferred to recovery room in appropriate condition. ESTIMATED BLOOD LOSS Minimal. IV FLUIDS See anesthesia record. URINE OUTPUT Not recorded. SPONGE AND NEEDLE COUNTS Correct x2. CONDITION ON TRANSFER PACU, stable. I, Dr. Scott Lima, was present for all portions of the procedure. Electronically Authenticated by: Scott Lima MD On 03/15/2017 11:26 AM RISK CONSULTANT Scott Lima M.D. JJN:ams #[id number] #[id number] documented in this encounter Plan of Treatment Not on file documented as of this encounter Procedures Procedure Name Priority Date/Time Associated Diagnosis Comments XR ANKLE 2 VW Routine 03/01/2017 6:08 PM CDT HCG, URINE, QUALITATIVE Timed 03/01/2017 10:34 AM CDT DISCHARGE LABORATORY CUMULATIVE REPORT 03/01/2017 12:00 AM CDT documented in this encounter Results * XR Ankle 2 VW (03/01/2017 6:08 PM CDT) Anatomical Region Laterality Modality N/A Radiographic Opal ging 03/01/2017 6:08 PM CDT Narrative 03/01/2017 6:13 PM CDT NISHANT MASCORRO M.D. FINAL REPORT ACC# ??Date Time ??Exam [id number] Mar 01, 2017 13:08:00 [id number] ANKLE 2 VIEWS UNILATERAL L EXAMINATION: ??[id number] ANKLE 2 VIEWS UNILATERAL COMPARISON:12/09/2016 HISTORY:Left ankle hardware removal IMPRESSION: ??4 C-arm images from the operating room are submitted for interpretation. They demonstrate removal of the sideplate fixation hardware of the distal fibula as well as a retention device in the distal tibial metaphysis. ??There are no fractures. Electronically signed by: Nishant Mascorro M.D. Requested By: SCOTT LIMA ??Drea ? Dictated By: ?? NISHANT MASCORRO M.D. ??on Mar 01 2017 ??1:11P This document has been electronically signed by: NISHANT MASCORRO M.D. on Mar 01 2017 ??1:11P [id number] MASCORRO M.D. FINAL REPORT Attending: ??JAIMEE, ??SCOTT Requesting: ??JAIMEE, ??SCOTT Requesting Fax: ?? Attending Fax: ?? Attending ID: ??[id number] Requesting ID: ??[id number] Report To 1 ID: ??[id number] ? Report To 1 Name: ??, ?? Report To 1 FAX: ?? NextGen Order #: ?? Procedure Note Miscellaneous, Not In File - 03/01/2017 NISHANT MASCORRO M.D. FINAL REPORT ACC# Date Time Exam [id number] Mar 01, 2017 13:08:00 [id number] ANKLE 2 VIEWS UNILATERAL L EXAMINATION: [id number] ANKLE 2 VIEWS UNILATERAL COMPARISON:12/09/2016 HISTORY:Left ankle hardware removal IMPRESSION: 4 C-arm images from the operating room are submitted for interpretation. They demonstrate removal of the sideplate fixation hardware of the distal fibula as well as a retention device in the distal tibial metaphysis. There are no fractures. Electronically signed by: Nishant Mascorro M.D. Requested By: SCOTT LIMA M.D. Dictated By: NISHANT MASCORRO M.D. on Mar 01 2017 1:11P This document has been electronically signed by: NISHANT MASCORRO M.D. on Mar 01 2017 1:11P [id number] MASCORRO M.D. FINAL REPORT Attending: SCOTT LIMA Requesting: SCOTT LIMA Requesting Fax: Attending Fax: Attending ID: [id number] Requesting ID: [id number] Report To 1 ID: [id number] Report To 1 Name: , Report To 1 FAX: NextGen Order #: Scott Lima MD IMG XR PROCEDURES Final Result * HCG, urine, qualitative (03/01/2017 10:34 AM CDT) HCG, ur Negative Negative [facility] Urine 03/01/2017 10:3 4 AM CDT 03/01/2017 10:39 AM CDT Scott Lima MD LAB URINE ORDERABLES Fi nal Result [facility] Department [place] [address] * DISCHARGE LABORATORY CUMULATIVE REPORT (03/01/2017 12:00 AM CDT) Narrative 03/01/2017 12:00 AM CDT Ordered by an unspecified provider. us Historical Provider LAB BLOOD ORDERABLES Pratibha l Result documented in this encounter Visit Diagnoses Not on filedocumented in this encounter Care Teams Appliance Service Representative Relationship Specialty Start Date End Date Deborah Collazo MD PCP - General 06/24/16 documented as of this encounter
--- OUTSIDE RECORDS SUMMARY | 2024-05-06 13:48 | XMS_ITS | Encounter Summary ---
Author Organization [facility] Healthcare Address [address] [place] [address] Care Team Providers Care Autoglazier Name Role Phone Deborah Collazo MD Primary Care Provider [phone] Encounter Details Date Type Department Care Team (Late st Contact Info) Description 05/12/2017 11:58 AM EXCHANGE FLOOR MANAGER - 05/12/2017 2:30 PM EXCHANGE FLOOR MANAGER Hospital Encounter [facility] INTERIM [phone] Aletha Enamorado MD [address] [place] [address] [address] [place] [address] Discharge Disposition: Discharge to home or self care Social History Tobacco Use Types Packs/Day Years Used Date Smoking Tobacco: Never Comments Unknown Sex and Gender Information Value Date Recorded Sex Assigned at Not on file Legal Sex Female 8:57 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 PYLORI UREASE SCREEN (DAMION TEST) Timed 05/12/2017 1:19 PM EXCHANGE FLOOR MANAGER HCG, URINE, QUALITATIVE Timed 05/12/19 12:10 PM EXCHANGE FLOOR MANAGER UPPER GASTROINTESTINAL ENDOSCOPY REPORT 05/12/2017 DISCHARGE LABORATORY CUMULATIVE REPORT 05/12/2017 12:00 AM EXCHANGE FLOOR MANAGER SURGICAL PATHOLOGY 05/12/2017 12 :00 AM EXCHANGE FLOOR MANAGER documented in this encounter Results * Surgical pathology (05/12/2017 1:32 PM EXCHANGE FLOOR MANAGER) 05/12/2017 1:32 PM EXCHANGE FLOOR MANAGER 05/12/2017 5:01 PM EXCHANGE FLOOR MANAGER Narrative 05/14/2017 3:03 PM EXCHANGE FLOOR MANAGER [facility] [place] [address] [facility] FINAL WITH ADDENDUM Patient Name: ADITI GARCIA ? Address: [address] [place] [address] ??Service: ??Gastro ??[place], [place] ??[id number] ??Location: ??[facility] SPEC CARE C Taken: 05/12/2017 Gender: F ?? Received: 05/12/2017 : 2000 (Age: 16) ??Hospital #: ??[id number] Accessioned: 05/12/2017 ?Patient Type: ??[facility] Same Day Surg Reported: 05/14/2017 ? Physician(s): Jessica Soni M.D. Deborah Collazo M.D. ? Diagnosis: A. ??Small bowel, duodenum, endoscopic biopsy ? - Acute duodenitis without obvious microorganisms, see comment B. ??Stomach, antrum, endoscopic biopsy ? - Focal active gastritis with reactive changes, see comment C. ??Esophagus, distal, endoscopic biopsy ? - No significant histopathologic abnormality [facility]/05/14/2017 11:26 By this signature, I attest that the above diagnosis is based upon my personal examination of the slides(and/or other material indicated in the diagnosis). ?? Jens Lyons M.D. ??Report Electronically Reviewed and Signed Out By ??Jens Lyons M.D. 05/14/2017 15:03:17 Microscopic Description and Comment: The duodenal biopsy (part A) consists of several mucosal samples, one fragment of tissue appears to be in the vicinity of an ulceration. ??The other fragments demonstrate acute duodenitis with cryptitis and a dense neutrophilic infiltration of the lamina propria including the villi. ??The intensity of the inflammatory reaction is variable some fragments show minimal to absent amounts of acute inflammation. A H. pylori stain has been ordered on the antral biopsy (part B) and will be addended. ??The extent and intensity of acute inflammation is significantly less impressive in the antral biopsy than in the duodenal biopsy. ?Dipesh Villasenor MD, PhD ?History: The patient is a 16-year-old girl who presents for diagnostic procedure for epigastric abdominal pain and vomiting. ??Operative procedure: Pediatric upper GI endoscopy. ??Operative findings: Normal esophagus, biopsied. ??Eroded and nodular mucosa in the antrum, biopsy for histology and H. pylori. ??Moderate mucosal abnormalities the duodenum, biopsied. Specimen(s) Received: A: Duodenum B: Antrum C: Distal esophagus Gross Description: The specimens are received in three formalin filled containers each labeled with the patient's name. A. ??The first container is received labeled with duodenum and consists of multiple cali-pink irregular fragment(s) of soft tissue measuring 0.5 x 0.3 x 0.2 cm in aggregate. ??Labeled A1. ??Jar 0. B. ??The second container is received labeled with antrum and consists of multiple cali-pink irregular fragment(s) of soft tissue measuring 0.3 x 0.2 x 0.1 cm in aggregate. ??Labeled B1. ??Jar 0. C. ??The third container is received labeled with distal esophagus and consists of multiple cali-pink irregular fragment(s) of soft tissue measuring 0.3 x 0.2 x 0.1 cm in aggregate. ??Stained with hematoxylin. ??Labeled C1. ??Jar 0. lg/05/13/2017 07:51 ?Maite Albert MS, PA (ASCP) ? By this signature, I attest that the above diagnosis is based upon my personal examination of the slides(and/or other material). ?? Addenda/Procedures Addendum Ordered: 05/17/2017 Status: Signed Out Addendum Complete: 05/17/2017 By: Jens Lyons M.D. Addendum Signed Out: 05/17/2017 ?? Addendum Comment H. pylori immunostain (with appropriate controls) is negative and shows no evidence of infection by H. pylori. By this signature, I attest that the above diagnosis is based upon my personal examination of the slides(and/or other material indicated in the diagnosis). ?? Jens Lyons M.D. ??Report Electronically Reviewed and Signed Out By ??Jens Lyons M.D. ??05/17/2017 13:20:13 ??Dipesh Villasenor MD, PhD ? Addendum Ordered: 05/27/2017 Status: Signed Out Addendum Complete: 05/27/2017 By: Jens Lyons M.D. Addendum Signed Out: 05/27/2017 ?? Addendum Comment HSV I, HSV II and CMV immunostains were performed (part A and B) with the appropriate controls and they show no evidence of organisms. By this signature, I attest that the above diagnosis is based upon my personal examination of the slides(and/or other material indicated in the diagnosis). ?? Jens Lyons M.D. ??Report Electronically Reviewed and Signed Out By ??Jens Lyons M.D. ??05/27/2017 15:06:02 ??Brooanisha Abro, M.D. ? Surgical Pathology report is available electronically in Clinical Desktop. The performance characteristics of some immunohistochemical stains, fluorescence in-situ hybridization tests and immunophenotyping by flow cytometry cited in this report (if any) were determined by the Surgical Pathology Department at [facility] as part of an ongoing quality tech program and in compliance with federally mandated regulations drawn from the Clinical Laboratory Improvement Act of 1988 (CLIA '88). ??Some of these tests rely on the use of analyte specific reagents and are subject to specific labeling requirements by the US Food and Drug Administration. ??Such diagnostic tests may only be performed in a facility that is certified by the Department of Health and Human Services as a high complexity laboratory under CLIA '88. ??The FDA has determined that such clearance or approval is not necessary. ??This test is used for clinical purposes. ??It should not be regarded as investigational or for research. ??Nevertheless, federal rules concerning the medical use of analyte specific reagents require that the following disclaimer be attached to the report: This test was developed and its performance characteristics determined by the Surgical Pathology Department of [facility]. ??It has not been cleared or approved by the U. S. Food and Drug Administration. Jessica Soni MD LAB PATHOLOGY ORDERABLE S Final Result * H. pylori urease screen (DAMION test) (05/12/2017 1:19 PM EXCHANGE FLOOR MANAGER) H. pylori, rapid (DAMION) Negative [facility] Comment: DAMION is an acronym for 'Campylobacter like organisms'. ??The DAMION is a test for urease activity, which is indicative of Helicobacter pylori. ??The presence of ??H. pylori is associated with gastritis and peptic ulcer disease. ??The DAMION Test has a sensitivity of 95% and a specificity of 98% in the detection of H. pylori. ??Almost all patients with a positive DAMION Test have histologic gastritis. ?? Current interpretive data was last revised on 16. Tissue 05/12/2017 1:19 PM EXCHANGE FLOOR MANAGER 05/12/2017 4:42 PM EXCHANGE FLOOR MANAGER Narrative [facility] - 05/13/2017 2:10 PM EXCHANGE FLOOR MANAGER Aletha Enamorado MD LAB MICROBIOLOGY - GENE RAL ORDERABLES Final Result Performing Organization Address [facility] [place] [address] * Specimen Tracking (05/12/2017 1:19 PM EXCHANGE FLOOR MANAGER) Specimen Tissue [facility] Comment: pediatric upper gi endo x3 1. duodenum 2. antrum 3. distal esophagus Specimen sent to Surgical Pathology [facility] Date sent [id number] [facility] Other 05/12/2017 1:19 PM EXCHANGE FLOOR MANAGER 05/12/2017 4:19 PM EXCHANGE FLOOR MANAGER Narrative [facility] - 05/12/2017 4:23 PM EXCHANGE FLOOR MANAGER Aletha Enamorado MD LAB BLOOD ORDERABLES Fi nal Result Performing Organization Address [facility] [place] [address] * HCG, urine, qualitative (05/12/2017 12:10 PM EXCHANGE FLOOR MANAGER) HCG, ur Negative Negative [facility] Urine 05/12/2017 12:1 0 PM EXCHANGE FLOOR MANAGER 05/12/2017 12:13 PM EXCHANGE FLOOR MANAGER Narrative [facility] - 05/12/2017 12:27 PM EXCHANGE FLOOR MANAGER Aletha Enamorado MD LAB URINE ORDERABLES Fi nal Result Performing Organization Address [facility] [place] [address] * SURGICAL PATHOLOGY (05/12/2017 12:00 AM EXCHANGE FLOOR MANAGER) Narrative 05/12/2017 12:00 AM EXCHANGE FLOOR MANAGER Ordered by an unspecified provider. Brad Morton MD LAB PATHOLOGY ORDERABLES Final Result * DISCHARGE LABORATORY CUMULATIVE REPORT (05/12/2017 12:00 AM EXCHANGE FLOOR MANAGER) Narrative 05/12/2017 12:00 AM EXCHANGE FLOOR MANAGER Ordered by an unspecified provider. [facility] Provider LAB BLOOD ORDERABLES Pratibha l Result * UPPER GASTROINTESTINAL ENDOSCOPY REPORT (05/12/2017) Anatomical Region Laterality Modality Other us Provider Scanning GI PROCEDURE ORDERABLES Final Result documented in this encounter Visit Diagnoses Not on filedocumented in this encounter Care Teams Autoglazier Relationship Specialty Start Date End Date Deborah Collazo MD PCP - General 06/24/16 documented as of this encounter
--- OUTSIDE RECORDS SUMMARY | 2024-05-06 13:48 | XMS_ITS | Encounter Summary ---
Author Organization [facility] Facility Care Team Providers Care Lubricating Engineer Name Role Phone Unavailable Primary Care Provider Unavailabl e Encounter Details Date Type Department Care Team (Late st Contact Info) Description 05/13/2016 2:33 PM COOK SOUP - 05/13/2016 11:59 PM COOK SOUP Hospital Encounter [facility] [address] [facility] Clarence, Scott Mayorga MD [address] [place] [id number] Closed displaced spiral fracture of shaft of left fibula with routine healing Social History Tobacco Use Types Packs/Day Years Used Date Smoking Tobacco: Never Comments Unknown Sex and Gender Information Value Date Recorded Sex Assigned at Not on file Legal Sex Female 8:57 AM COOK SOUP Gender Identity Not on file Sexual Orientation Not on file documented as of this encounter Plan of Treatment Not on file documented as of this encounter Procedures Procedure Name Priority Date/Time Associated Diagnosis Comments XR ANKLE 3+ VW Routine 06/24/2016 10:26 AM COOK SOUP XR ANKLE 3+ VW Routine 05/13/2016 2:39 PM COOK SOUP documented in this encounter Results * XR Ankle 3+ Vw (06/24/2016 10:26 AM COOK SOUP) Anatomical Region Laterality Modality N/A Radiographic Opal ging 06/24/2016 10:2 6 AM COOK SOUP Narrative 06/24/2016 10:29 AM COOK SOUP MARIE ANDRE, FINAL REPORT ACC# ??Date Time ??Exam [id number] Jun 24, 2016 10:26:00 17683 ANKLE 3 VIEWS UNILATERAL L EXAMINATION: ?? Left ankle 3 views HISTORY: Left fibula open reduction-internal fixation. FINDINGS: Compared with 05/13/2016. Redemonstrated is a healing spiral distal fibula [...] left distal fibula fracture in near-anatomic alignment. Requested By: SCOTT HERMOSILLO M.D. Dictated By: ?? MARIE ANDRE, ?? on Jun 24 2016 10:29A This document has been electronically signed by: MARIE ANDRE, ??on Jun 24 2016 10:29A Procedure Note Provider, Brad, - 09/15/2016 MARIE ANDRE, FINAL REPORT ACC# Date Time Exam [id number] Jun 24, 2016 10:26:00 11939 ANKLE 3 VIEWS UNILATERAL L EXAMINATION: Left ankle 3 views HISTORY: Left fibula open reduction-internal fixation. FINDINGS: Compared with 05/13/2016. Redemonstrated is a healing spiral distal fibula [...] left distal fibula fracture in near-anatomic alignment. Requested By: SCOTT HERMOSILLO M.D. Dictated By: MARIE ANDRE, on Jun 24 2016 10:29A This document has been electronically signed by: MARIE ANDRE on Jun 24 2016 10:29A us Historical Provider IMG XR PROCEDURES Final R esult * XR Ankle 3+ Vw (05/13/2016 2:39 PM COOK SOUP) Anatomical Region Laterality Modality N/A Radiographic Opal ging 05/13/2016 2:39 PM COOK SOUP Narrative 05/13/2016 3:04 PM COOK SOUP MARIE ANDRE, FINAL REPORT ACC# ??Date Time ??Exam [id number] May 13, 2016 14:39:00 [id number] ANKLE 3 VIEWS UNILATERAL L EXAMINATION: ?? Left ankle 3 views HISTORY: Left fibula open reduction-internal fixation. FINDINGS: Compared with 04/08/2016. Redemonstrated is a healing spiral distal fibula [...] evidence of a hardware complication. Requested By: Dictated By: ?? MARIE ANDRE, ?? on May ??2016 ??3:04P This document has been electronically signed by: MARIE ANDRE, ??on May ??2016 ??3:04P [id number] Procedure Note Provider, MD Brad - 09/15/2016 MARIE ANDRE, FINAL REPORT ACC# Date Time Exam [id number] May 13, 2016 14:39:00 15661 ANKLE 3 VIEWS UNILATERAL L EXAMINATION: Left ankle 3 views HISTORY: Left fibula open reduction-internal fixation. FINDINGS: Compared with 04/08/2016. Redemonstrated is a healing spiral distal fibula [...] evidence of a hardware complication. Requested By: Dictated By: MARIE ANDRE on May 13 2016 3:04P This document has been electronically signed by: MARIE ANDRE on May 13 2016 3:04P [id number] Historical Provider MD KOWALSKI XR PROCEDURES Final R esult documented in this encounter Visit Diagnoses Diagnosis Closed displaced spiral fracture of shaft of left fibula with routine healing documented in this encounter
== END 2024-04-29 11:51 | disposition home or self-care (01) ==
PROVIDERS: Emergency Medicine; Emergency Provider Student in an Organized Health Care Education/Training Program; PCP Nurse Practitioner
DX: M94.0 Chondrocostal junction syndrome [Tietze] (principal); Z20.822 Contact with and (suspected) exposure to COVID-19; F17.290 Nicotine dependence, other tobacco product, uncomplicated; Z90.49 Acquired absence of other specified parts of digestive tract; F64.0 Transsexualism; I45.10 Unspecified right bundle-branch block
CPT/HCPCS: 36415; 71046; 80053; 81025; 83690; 84484; 85025; 85380; 85610; 85730; 87636; 93005; 96374; 99284; A9270; J1885

== ENCOUNTER 2024-07-19 01:07 | Emergency (ER) | payer OTHER, SELFPAY ==
--- NOTE | ~2024-07-19 | XR_ITS ---
Portable chest x-ray Comparison: 04/29/2024 Clinical History: Chest pain Findings: Lungs are clear, without focal consolidation or pleural effusion. Cardiomediastinal silho uette is stable. Bones and soft tissues are unremarkable. Impression: Normal chest. Reviewed, dictated and finalized at [facility]. Impression: Normal chest.
[2024-07-19 01:04] VITALS: BP 110/64; PULSE 68; RESP 22; TEMP 36.7; O2SAT 99
--- NOTE | 2024-07-19 01:10 | ECG_ITS ---
Test Date: 2024-07-19 01:12:16 Measurements Intervals [place] Rate: 55 P: 12 [place]: 170 QRS: -2 QRSD: 105 T: 16 QT: 438 QTc: 419 Interpretive Statements SINUS BRADYCARDIA INCOMPLETE RIGHT BUNDLE BRANCH BLOCK Compared to ECG 04/29/2024 10:11:56 NO SIGNIFICANT CHANGES Electronically Signed On 07-19-2024 13:38:59 CDT by Slava Martinez M.D.
[2024-07-19 01:12] VITALS: O2SAT 99
[2024-07-19 01:13] VITALS: PULSE 69
--- NOTE | 2024-07-19 01:23 | ED_ITS ---
HPI - Chest Pain General Chief Complaint: Chest Pain Stated Complaint: chest pain Time Seen by Provider: 07/19/24 01:09 Source: patient Mode of arrival: ambulatory Limitations: no limitations History of Present Illness HPI narrative: This is a 23 year old female who presents to the ED for chief complaint chest pain starting a work this evening. Patient works at [employer] and was on light duty due to wrist injury. States that the pain started in the left side of the chest and has lasted intermittently for about 45 minutes. States the pain is reproducible with palpation to the left side of the chest near the sternum. Denies associated shortness of breath, back pain, nausea, vomiting, numbness, weakness, lightheadedness, syncope. Related Data Home Medications ?Medication ?Instructions ?Recorded ?Confirmed ?Last Taken ?Type etonogestrel 68 mg subdermal 1 implant subdermal ONCE 10/20/23 04/29/24 04/29/24 History implant (Nexplanon) Allergies Allergy/AdvReac Type Severity Reaction Status Date / Time No Known Allergies Allergy Unknown Verified 07/19/24 01:12 Review of Systems Review of Systems: All systems as dictated in [facility] Past Medical History Medical History Encounter for surveillance of other contraceptives Surgical History Surgical History History of ankle surgery History of cholecystectomy Family History Family History Mother Diabetes mellitus Hypertension Heart problem Sibling Depression Social History Social History Smoking status: Current every day smoker Tobacco type: e-cigarettes/vaping Alcohol intake: never Substance use: current Substance use type: marijuana Do You Feel Safe in your Home?: Yes Lack of Transportation: No Lack of Food: Never True Current Housing: I Have Housing Concerned About Future Housing: No Difficulty Paying Gas/Electric Bills: No Difficulty Paying for Meds: No Currently Unemployed: No Education: High School Diploma/GED Living arrangements: with roommate(s) Occupation/Education: occupation Gender identity (if verbalized by the patient): Transgender Male Sexual Orientation (if Verbalized by the Patient): Straight or Heterosexual Exam Narrative: GENERAL: Well-appearing, well-nourished, and in no acute distress. HEAD: Normocephalic, atraumatic. EYES: PERRLA and EOMI. ENT: Nares clear, no rhinorrhea or epistaxis. Mucous membranes moist. Oropharynx without tonsillar hypertrophy exudate or other lesions. NECK: Supple. No adenopathy or masses. CHEST: No respiratory distress. Clear to auscultation. No wheezes rales or rhonc hi. Reproducible chest wall pain with palpation of the left costochondral junctions. HEART: Regular rate and rhythm. No murmur heard. Normal peripheral pulses. ABDOMEN: Soft, nontender, nondistended, normal active bowel sounds. MSK: Normal range of motion. No edema. SKIN: Warm, dry, no rash. NEURO: Alert and oriented x4. No focal deficits. PSYCH: Normal mood and affect. Course Vital Signs Vital signs: Vital Signs Temperature 98.1 F 07/19/24 01:04 Pulse Rate 68 07/19/24 01:04 Respiratory Rate 22 H 07/19/24 01:04 Blood Pressure 110/64 07/19/24 01:04 Pulse Oximetry 99 07/19/24 01:04 Oxygen Delivery Room Air 07/19/24 01:04 Temperature 98.1 F 07/19/24 01:04 Pulse Rate 69 07/19/24 01:13 Respiratory Rate 22 H 07/19/24 01:04 Blood Pressure 110/64 07/19/24 01:04 Pulse Oximetry 99 07/19/24 01:12 Oxygen Delivery Room Air 07/19/24 01:12 MDM - Chest Pain MDM Narrative Medical decision making narrative: This is a 24-year-old female who presents to the ED for chief complaint of chest pain onset at work tonight. Vitals are normal. Exam remarkable for chest wall tenderness at the left costochondral junctions. Lab work is unremarkable overall. Troponin is negative. Chest x-ray unremarkable. Heart score 0. Perc rule negative. No use of exogenous estrogen. Station is consistent with costochondritis. Patient was given Toradol here with decent relief of symptoms. Encouraged to take naproxen BID prn whenever this kind of pain comes on. Patient will be discharged in stable condition. Supportive measures discussed and return precautions given. Patient is understanding and agreeable with plan for discharge with PCP follow-up. Discharge Plan Discharge Clinical Impression: Costochondritis Patient Disposition: Home, Self-Care Condition: Stable Instructions: Antibiotic Form Additional Instructions: Exam Patient Language: Citizen Of [place] Prescriptions: New naproxen 500 mg tablet 500 mg PO BID PRN (Reason: pain) Qty: 30 0RF No Action Nexplanon 68 mg implant 1 implant subdermal ONCE Patient Comments: implant, continuous daily Rx Instructions: as a single dose escitalopram oxalate [Lexapro] 10 mg tablet 20 mg PO DAILY Qty: 90 1RF Follow-up/Referrals: Adelia Barriga, POST DOCTORAL RESEARCHER [Primary Care Provider] - Time of Disposition: 02:41 Quality HEART score for chest pain patients History: slightly suspicious ECG: normal Age: < or = to 45 years Risk factors: no risk factors known Troponin: < or = to 1x normal limit Heart score: 0
--- OUTSIDE RECORDS SUMMARY | 2024-07-19 01:50 | XMS_ITS | Patient Health Summary ---
Author Organization [facility] Address [address] [place] [address] Care Team Providers Care Plant Operations Coordinator Name Role Phone Deborah Collazo MD Primary Care Provider Note from [facility],non-owned Affiliates and Associated Physician Practices is amultiple site organization consisting of ambulatory clinics and hospital sitesin [place], [place], [place] and [place]. This disclosure is being madepursuant to the Care Everywhere program and may not contain all information available regarding this patient. Last updated 18.[facility] Social History Tobacco Use Types Packs/Day Years Used Date Smoking Tobacco: Never Assessed Sex and Gender Information Value Date Recorded Sex Assigned at Not on file Gender Identity Not on file Sexual Orientation Not on file Care Teams Plant Operations Coordinator Relationship Specialty Start Date End Date Deborah Collazo MD [address] [place] [address] PCP - General Pediatrics 05/31/20
--- OUTSIDE RECORDS SUMMARY | 2024-07-19 01:50 | XMS_ITS | Clinical Summary ---
Author Organization [facility] Address [address] [place] [address] Care Team Providers Care Clerk Analyst Name Role Phone Deborah Collazo MD Primary Care Provider [phone] Allergies No known active allergies Medications famotidine [...] fibula 03/25/2016 Well child visit 03/24/2016 Immunizations Immunization Administration Dates Next Due DTaP 02/01/2003,2002,2002 DTaP [...] on file Legal Sex Female 8:57 AM CYBER SECURITY SYSTEMS ENGINEER Gender Identity Not on file Sexual Orientation Not on file Obstetrics History Last Filed Vital Signs Vital Sign Reading Time Taken Comments Blood Pressure 110/62 07/14/2023 4:30 AM CYBER SECURITY SYSTEMS ENGINEER Pulse 54 07/14/2023 4:30 AM CYBER SECURITY SYSTEMS ENGINEER Temperature 36.3 C (97.3 F) 07/14/2023 4:30 AM CYBER SECURITY SYSTEMS ENGINEER Respiratory Rate 16 07/14/2023 4:30 AM CYBER SECURITY SYSTEMS ENGINEER Oxygen Saturation 99% 07/14/2023 4:30 AM CYBER SECURITY SYSTEMS ENGINEER Inhaled Oxygen Concentration - - Weight 86.2 kg (190 lb) 07/14/2023 12:32 AM CYBER SECURITY SYSTEMS ENGINEER Height 165.1 cm (5' 5 ) 07/14/2023 12:32 AM CYBER SECURITY SYSTEMS ENGINEER Body Mass Index 31.62 07/14/2023 12:32 AM CYBER SECURITY SYSTEMS ENGINEER Plan of Treatment Health Maintenance Due Date Last Done Comments Cervical Cancer Screening 2002 Depression Screening 2002 Hepatitis C Screening 2002 HPV Vaccines (2 - 2-dose series) 05/05/2013 11/04/19 13 Regular Well Visit/Exam 18-64 2020 Meningococcal B Vaccine (2 o f 2 - Trumenba SCDM 2-dose series) 07/05/2020 01/03/2020 DTaP/Tdap/Td Vaccine (7 - Td or Tdap) 07/03/2023 07/03/2013, 12/03/2007, 09/27/2003, Additional history exists Influenza Vaccine (#1) 2024 9, 03/09/2018, 02/16/2017, Additional history exists Hepatitis B Screening Completed 07/05/2003 , 2002, 2002 Pneumococcal vaccine <65 Completed 004, 02/01/2003, 2002, Additional history exists Varicella Vaccines Completed 12/03/2007, 03/12/2004 Insurance [facility] CHOICE PLUS [facility] HMO/PPO Address: [facility] [address] [place] [address] [facility] OOS [facility] CHOICE PLUS [facility] HMO/PPO Address: [address] [address] [place] [address] IDPA [facility] CHOICE PLUS [facility] HMO/PPO Address: [address] [address] [place] [address] IDPA Care Teams Clerk Analyst Relationship Specialty Start Date End Date Deborah Collazo MD PCP - General 06/24/16
--- OUTSIDE RECORDS SUMMARY | 2024-07-19 01:50 | XMS_ITS | Data Portability ---
Author Organization [facility] [place] Address [address] [place] [place] [address] Care Team Providers Care Director Public Service Name Role Phone AJAY KING Primary Care Provider [phone] Assessment No assessment recorded. Plan of Treatment Reminders Order Date Submit Date Provider Last Modified By Organization Details Last Modified Time Details Appointments None recorded. Lab None recorded. Referral None recorded. Procedures None recorded. Surgeries None recorded. Imaging US, transvagina l 2021 022 [address], [address], [place], [address], 15:37:10 US, pelvis 2021 022 [address], [address], [place], [address], 22:42:57 US, transvagina l 2021 022 [address], [address], [place], [address], 22:42:57 US, pelvis, complete 2021 022 [email or web address] [place], [address], [place], [address], 18:15:41 Medication Orders None recorded. Patient TargetsNo targets recorded. Patient InstructionsNo instructions recorded. Reason for Referral None Reported. Results Created Date Observation Date Name Description Value Unit Range Abnormal Flag Note LastModifiedBy Organization Detail LastModifiedTime 09/25/19 22 09/24/2021 US, pelvi s No observ ation record ed. [email or web address], [place], [address], 09/24/2021 16:25:09 09/25/19 22 09/24/2021 US, trans vagin al No observ ation record ed. [email or web address], [place], [address], 09/24/2021 16:25:19 09/25/19 22 09/24/2021 US, pelvi s No observ ation record ed. V[address], [place], [address], 09/14/2022 15:49:13 11/12/19 22 11/11/2021 US, trans vagin al No observ ation record ed. [email or web address], [place], [address], 11/11/2021 11:27:48 11/12/19 22 11/11/2021 US, trans vagin al No observ ation record ed. Vandana [address], [place], [address], 09/15/2022 10:25:29 Result Notes None recorded. Procedures Surgical History Date Name Laterality Status Provider Name and Address Organization Details Recorded Time 09/30/19 22 Cholecystectomy completed [facility] 10/02/2021 12:06:25 03/01/20 17 procedure on ankle completed [facility] 09/22/2021 14:21:18 04/01/20 16 procedure on ankle completed [facility] 09/22/2021 14:21:08 Imaging Results Imaging Date Name Status LastModified by Organization Details LastModified Time 09/24/2021 US, pelvis completed [email or web address] [place] [address], [place], [address], 09/24/2021 16:25:09 09/24/2021 US, transvaginal completed [email or web address] [address], [place], [address], 09/24/2021 16:25:19 09/24/2021 US, pelvis completed Vandana [address], [place], [address], 09/14/2022 15:49:13 11/11/2021 US, transvaginal completed [email or web address] [facility] [address], [place], [address], 11/11/2021 11:27:48 11/11/2021 US, transvaginal completed Vandana [address], [place], [address], 09/15/2022 10:25:29 Procedure Notes None recorded. Medical Equipment None Reported. Allergies Allergen ID Allergen Name Allergen Category Reaction Reaction Severity Criticality Documentation Date Start Date Code Code System Note Provider Name and Address Organization Details Recorded Time 46459 Betadine medicatio n Not available Not available Not available 10/02/2021 0 RxNorm JOANNA Henson [address], [place], [address], [facility] 12:35:10 Medications Name Sig Start Date [...] 2 165.1 cm 96 % 32.8 kg/m2 16618.1 3 g 123 mm[Hg] 75 mm[Hg] [facility] 2 14:40:36 Date Recorded Body height Body mass index (BMI) Percentile per age and sex Body mass index (BMI) Body weight Systolic blood pressure Diastolic blood pressure Provider Name and Address Organization Details Last Updated DateTime 2 165.1 cm 96 % 32.8 kg/m2 49614.7 g 122 mm[Hg] 80 mm[Hg] [facility] 2 12:05:43 Social History Question Answer Notes LastModified by Organizat ion Details LastModified Time Tobacco Smoking Status Current Every Day Smoker [facility] 09/22/2021 14:20:30 What Is Your [...] (Food, seasonal, environmental ) Y Other N Blood Transfusion N Drug/Latex Allergies/Reactions N Breast Cancer N Dermatologic Disorders N Lung Disease N [...] Diagnosis/Indication Diagnosis SNOMED-CT Code Diagnosis ICD10 Code Diagnosis Note [id number] JOANNA Henson [place] [address] [address] 09/22/2021 13:56:07 09/22/2021 15:35:17 Cyst of right ovary [id number] N83.201 Here to discuss ovarian cyst seen on CT scan on 09/14/2021 at ED visit for right sided abdominal pain. The patient was found to have a UTI, gallstones , and 2cm right ovarian cyst at ED visit. No u/s was performed, is getting surgery for gallstones in one week.We discussed need for pelvic u/s to assess cyst characteri stics. Will schedule to RTC for u/s and u/s f/u.Red flag symptoms discussed and risk of torsion discussed. STI testing declinedRT C for u/s Time spent with the patient was 30 minutes [id number] Mimi [facility] [address] [address] 09/24/2021 15:28:19 09/24/2021 16:09:00 Cyst of right ovary [id number] N83.291 [id number] JOANNA Henson [place] [address] [address] 10/02/2021 11:40:36 10/02/2021 13:15:16 Cyst of ovary [id number] N83.209 Here to discuss recent pelvic u/s result.We discussed findings of Left corpus luteum cyst, about 2.8cm in size and right small paratubal cyst, 6mm.They are not currently experienci ng any pelvic pain. We agreed to a repeat u/s in 6 weeks to check for cyst resolution /any changes. Patient agrees. Patient would not like an MD consult at this time.Red flag symptoms discussed and risk of torsion discussed: increased abdominal pains, fevers, flu-like symptoms = would need to call the office or go to the ED for care. Patient agrees.RTC in 6 weeks Time spent with the patient was 30 minutes [id number] [employer] [place] [address] [address] 11/11/2021 10:39:35 11/11/2021 13:59:07 Cyst of right ovary [id number] N83.291 Health Concerns Section Related Observation LastModified by Organization Detai ls LastModified Time None Recorded Concern Status LastModified by Organization Details LastModified Time None Recorded Advance Directives Directive None Recorded Payers Encounter Date Sequence Insurance Name Policy Number Policy Manning Covered Member ID Manning Member ID Guarantor Name 09/22/2021 1 [facility] [id number] Jacob R Isaac [id number] [facility] 09/24/2021 1 [place] [id number] Jacob R Isaac [id number] [facility] 10/02/2021 1 [facility] [id number] Jacob R Isaac [id number] [facility] 11/11/2021 1 [place] [id number] Jacob R Isaac [id number] [facility] Notes Date Note Type Note Provider Name [...] one week. JOANNA Henson [address], [place], [address], [facility] 09/22/2021 15:17:24 10/02/2021 text/html Here for u/s f/u.Recently had gallbladder surgery one week ago. Patient doing well.Is having no pelvic pain JOANNA Henson [address], [place], [address], [place] [facility] 10/02/2021 12:34:34 OBGyn Episode No OBEpisode recorded.
--- OUTSIDE RECORDS SUMMARY | 2024-07-19 01:50 | XMS_ITS | Referral Summary ---
Author Organization [facility] Address [address] [place] [address] Care Team Providers Care Animal Hospital Office Supervisor Name Role Phone Deborah Collazo MD Primary Care Provider [phone] Source Comments [facility],non-[facility] Affiliates and Associated Physician Practices is amultiple site organization consisting of ambulatory clinics and hospital sitesin [place], [place], [place] and [place]. This disclosure is being madepursuant to the Care Everywhere program and may not contain all information available regarding this patient. Last updated 18.[facility] Social History Tobacco Use Types Packs/Day Years Used Date Smoking Tobacco: Never Assessed Sex and Gender Information Value Date Recorded Sex Assigned at Not on file Gender Identity Not on file Sexual Orientation Not on file Plan of Treatment Not on file Care Teams Animal [facility] Office Supervisor Relationship Specialty Start Date End Date Deborah Collazo MD [address] [place] [address] PCP - General Pediatrics 05/31/20
--- OUTSIDE RECORDS SUMMARY | 2024-07-19 01:50 | XMS_ITS | Referral Summary ---
Author Organization [facility] Address [address] [place] [address] Care Team Providers Care Concrete Journeyman Name Role Phone Deborah Collazo MD Primary Care Provider [phone] Allergies No known active allergies Medications famotidine [...] on file Legal Sex Female 8:57 AM SQUIRREL MAN Gender Identity Not on file Sexual Orientation Not on file Last Filed Vital Signs Vital Sign Reading Time Taken Comments Blood Pressure 110/62 07/14/2023 4:30 AM SQUIRREL MAN Pulse 54 07/14/2023 4:30 AM SQUIRREL MAN Temperature 36.3 C (97.3 F) 07/14/2023 4:30 AM SQUIRREL MAN Respiratory Rate 16 07/14/2023 4:30 AM SQUIRREL MAN Oxygen Saturation 99% 07/14/2023 4:30 AM SQUIRREL MAN Inhaled Oxygen Concentration - - Weight 86.2 kg (190 lb) 07/14/2023 12:32 AM SQUIRREL MAN Height 165.1 cm (5' 5 ) 07/14/2023 12:32 AM SQUIRREL MAN Body Mass Index 31.62 07/14/2023 12:32 AM SQUIRREL MAN Plan of Treatment Not on file Insurance [address] [facility] CHOICE PLUS IDPA [facility] CHOICE PLUS IDPA Care Teams Concrete Journeyman Relationship Specialty Start Date End Date Deborah Collazo MD PCP - General 06/24/16
--- OUTSIDE RECORDS SUMMARY | 2024-07-19 01:50 | XMS_ITS | Clinical Summary ---
Author Organization [facility] Address [address] [place] [address] Care Team Providers Care Gas Dispatcher Name Role Phone Deborah Collazo MD Primary Care Provider [phone] Source Comments [facility],non-owned Affiliates and Associated Physician Practices is amultiple site organization consisting of ambulatory clinics and hospital sitesin [place], [place], [place] and [place]. This disclosure is being madepursuant to the Care Everywhere program and may not contain all information available regarding this patient. Last updated 18.[facility] [employer] Social History Tobacco Use Types Packs/Day Years Used Date Smoking Tobacco: Never Assessed Sex and Gender Information Value Date Recorded Sex Assigned at Not on file Gender Identity Not on file Sexual Orientation Not on file Plan of Treatment Health Maintenance Due Date Last Done Comments PAP SMEAR 2002 HIV SCREENING 2017 HPV VACCINE (1 - 3-dose series) 2017 CHLAMYDIA/GONORRHEA SCREENING 2018 MENINGOCOCCAL (Group B) VACCINE (1 of 2 - Standard) 2018 HEPATITIS C SCREENING 06/27/2020 DTAP/TDAP/TD VACCINES (1 - Tdap) 2021 HEPATITIS B VACCINE (1 of 3 - 19+ 3-dose series) 2021 COVID-19 VACCINE (1 - 2023- season) 2024 INFLUENZA VACCINE (#1) 2024 9, 03/09/2018, 02/16/2017, Additional history exists DEPRESSION SCREENING 05/10/2024 ZOSTER VACCINE (1 of 2) 2052 HIB VACCINE Aged Out No longer eligi ble based on patient's age to complete this topic MENINGOCOCCAL VACCINE Aged Out No jayson javi eligible based on patient's age to complete this topic PNEUMOCOCCAL VACCINE Aged Out No long er eligible based on patient's age to complete this topic Care Teams Gas Dispatcher Relationship Specialty Start Date End Date Deborah Collazo MD [address] [place] [id number] PCP - General Pediatrics 05/31/20
[2024-07-19] MEDS: KETOROLAC 15 MG/ML VIAL (*BKC) IV PUSH (02:03)
[2024-07-19 02:10] LABS: Basophils Percent Auto 0.5 % (0.2-1.2); Eosinophils Absolute Auto 0.2 K/mm3 (0-0.3); Eosinophils Percent Auto 2.7 % (0-4.4); Hematocrit 37.2 % (37.0-47.0); Hemoglobin 12.9 g/dL (12.0-15.0); Immature Granulocyte Absolute 0.02 K/mm3 (0.00-0.031); Immature Granulocyte Percent A 0.3 % (0-0.5); Lymphocytes Absolute Auto 2.36 K/mm3 (0.9-3.2); Mean Corpuscular HGB Conc 34.7 g/dl (32-36); Mean Corpuscular Hemoglobin 29.8 pg (26-34); Mean Corpuscular Volume 85.9 fl (80-100); Mean Platelet Volume 10.7 fl (7.4-10.4); Monocytes Absolute Auto 0.4 K/mm3 (0.1-0.6); Monocytes Percent Auto 6.4 % (2.6-8.5); Neutrophils Absolute Auto 3.5 K/mm3 (1.3-6.7); Neutrophils Percent Auto 54.1 % (45.5-73.1); Platelet Count Result 203 k/mm3 (150-375); Red Blood Count 4.33 M/mm3 (4.2-5.4); Red Cell Distribution Width 12.8 % (11.5-14.5); White Blood Count 6.6 K/mm3 (4.5-10.0)
[2024-07-19 02:22] LABS: Anion Gap 11 mmol/L (4-12); Blood Urea Nitrogen 7 mg/dL (7-17); Calcium 9.2 mg/dL (8.4-10.2); Carbon Dioxide 23 mmol/L (22-30); Chloride 105 mmol/L (98-107); Estimated CRCL calculation 100 ml/min; Estimated Glomerular Filt Rate > 60; Glucose 88 mg/dL (65-110); Potassium 3.6 mmol/L (3.4-5.0); Sodium 139 mmol/L (137-145)
[2024-07-19 02:35] LABS: Troponin I < 0.012 ng/mL (0.000-0.034)
[2024-07-19 02:54] VITALS: BP 102/68; PULSE 78; RESP 16; O2SAT 97
== END 2024-07-19 02:56 | disposition home or self-care (01) ==
LOC: ANHED 01:48
PROVIDERS: Emergency Provider Physician Assistant; PCP Nurse Practitioner
DX: M94.0 Chondrocostal junction syndrome [Tietze] (principal); F17.290 Nicotine dependence, other tobacco product, uncomplicated; Z90.49 Acquired absence of other specified parts of digestive tract; Z79.899 Other long term (current) drug therapy; I45.10 Unspecified right bundle-branch block; R00.1 Bradycardia, unspecified
CPT/HCPCS: 36415; 71045; 80048; 84484; 85025; 93005; 96374; 99284; J1885